=== PATIENT | male | born 1940 | race Caucasian/White ===

== ENCOUNTER 2017-07-30 11:28 | Emergency (ER) | payer MEDICARE ==
[2017-07-30] MEDS ORDERED: ONDANSETRON 4 MG/2 ML VIAL IVP STA (11:47)
[2017-07-30] MEDS ORDERED: SODIUM CHLORIDE 0.9% 1,000 ML IV STA (11:47)
[2017-07-30] MEDS ORDERED: SODIUM CHLORIDE 0.9% 2,000 ML IV STA (11:47)
[2017-07-30] MEDS ORDERED: PANTOPRAZOLE 40 MG/10 ML VIAL IVP STA (11:49)
--- NOTE | 2017-07-30 11:53 | ED ---
Abdominal Pain HPI - General Source: patient, RN notes reviewed, old records reviewed Mode of arrival: ambulatory Limitations: no limitations <Divine Lane - Last Filed: 07/30/17 13:27> <Dwayne Hughes - Last Filed: 07/30/17 14:33> - General Chief Complaint: Abdominal Pain Stated Complaint: abd pain; black stools Time Seen by Provider: 07/30/17 11:34 - History of Present Illness Initial Comments: Is a 76-year-old male presents emergency Department chief complaint of lower abdominal pain and dark black stools for the past 3 weeks. Patient reports that he size primary care provider and was placed on Protonix and Carafate. Patient reports that he's been taking those but didn't think they relating to having constipation so he stopped taking them for a few days. Patient states that he feels very fatigued. Denies any chest pain or shortness of breath. Patient states that he's had no nausea or vomiting. Patient reports that the pain seems to be lower. He also reports that his abdominal pain seems to be somewhat relieved with eating, but then will return shortly afterwards. Patient prefers he's never had any scopes. He reports that he is posterior call and schedule for GI specialist. Patient denies any recent fever, chills, shortness of breath, chest pain, nausea vomiting, numbness or tingling, dysuria or hematuria, headaches or visual changes, or any other current symptoms ( Divine Lane) - Related Data Home Medications Medication Instructions Recorded Confirmed Isosorbide Mononitrate ER [Imdur] 30 mg PO DAILY 02/24/14 07/30/17 Atenolol [Atenolol] 25 mg PO DAILY 03/08/14 07/30/17 Lisinopril [Lisinopril] 5 mg PO DAILY 03/08/14 07/30/17 Nitroglycerin Sl Tabs [Nitrostat] 0.4 mg SL Q5M PRN 03/08/14 07/30/17 Atorvastatin [Lipitor] 40 mg PO DAILY 05/28/14 07/30/17 Multivitamin/Iron/Folic Acid 1 tab PO DAILY 05/28/14 07/30/17 [Centrum Complete Multivit Tab] Pantoprazole Sodium 40 mg PO HS 03/17/15 07/30/17 Aspirin EC [Ecotrin Low Dose] 162 mg PO DAILY 07/30/17 07/30/17 Famotidine [Pepcid] 20 mg PO DAILY 07/30/17 07/30/17 Sucralfate [Carafate] 1 gm PO ACHS 07/30/17 07/30/17 Allergies Allergy/AdvReac Type Severity Reaction Status Date / Time No Known Allergies Allergy Verified 07/30/17 13:29 Review of Systems ROS Other: All systems not noted in ROS Statement are negative. <Divine Lane - Last Filed: 07/30/17 13:27> ROS Other: All systems not noted in ROS Statement are negative. <Dwayne Hughes - Last Filed: 07/30/17 14:33> ROS Statement: Those systems with pertinent positive or pertinent negative responses have been documented in the HPI. Past Medical History Past Medical History: Coronary Artery Disease (CAD), Hyperlipidemia, Hypertension History of Any Multi-Drug Resistant Organisms: None Reported Past Surgical History: Cholecystectomy, Heart Catheterization With Stent Additional Past Surgical History / Comment(s): stent x5, pilonidial cyst removed , hemmoriodectomy Past Anesthesia/Blood Transfusion Reactions: No Reported Reaction Date of Last Stent Placement:: 2012 Past Psychological History: No Psychological Hx Reported Smoking Status: Former smoker Past Alcohol Use History: None Reported Past Drug Use History: None Reported <Divine Lane - Last Filed: 07/30/17 13:27> General Exam Limitations: no limitations General appearance: alert, in no apparent distress Head exam: Present: atraumatic, normocephalic, normal inspection Eye exam: Present: normal appearance, PERRL, EOMI. Absent: scleral icterus, conjunctival injection, periorbital swelling ENT exam: Present: normal exam, mucous membranes moist Neck exam: Present: normal inspection. Absent: tenderness, meningismus, lymphadenopathy Respiratory exam: Present: normal lung sounds bilaterally. Absent: respiratory distress, wheezes, rales, rhonchi, stridor Cardiovascular Exam: Present: regular rate, normal rhythm, normal heart sounds. Absent: systolic murmur, diastolic murmur, rubs, gallop, clicks GI/Abdominal exam: Present: soft, tenderness (Some epigastric tenderness and lower quadrant tenderness.), normal bowel sounds. Absent: distended, guarding, rebound, rigid Rectal exam: Present: normal inspection, normal rectal tone, heme (+) stool, black stool. Absent: bloody stool, fecal impaction, hemorrhoids, mass, tenderness, normal prostate, prostate tenderness, prostate enlargement Extremities exam: Present: normal inspection, full ROM, normal capillary refill. Absent: tenderness, pedal edema, joint swelling, calf tenderness Back exam: Present: normal inspection Neurological exam: Present: alert, oriented X3, CN II-XII intact Psychiatric exam: Present: normal affect, normal mood Skin exam: Present: warm, dry, intact, normal color. Absent: rash <Divine Lane - Last Filed: 07/30/17 13:27> <Dwayne Hughes - Last Filed: 07/30/17 14:33> - General Exam Comments Initial Comments: 68-year-old male. No distress. (Divine Lane) Course <Divine Lane - Last Filed: 07/30/17 13:27> <Dwayne Hughes - Last Filed: 07/30/17 14:33> Vital Signs 07/30/17 07/30/17 11:31 13:16 Temperature 97.9 F 97.0 F L Pulse Rate 77 61 Respiratory 20 18 Rate Blood Pressure 157/78 159/70 O2 Sat by Pulse 99 97 Oximetry - Reevaluation(s) Reevaluation #1: 07/30/17 14:32 I did personally do a myyr-gr-terh evaluation the patient did discuss the findings with him. He has some lower abdominal discomfort to palpation no guarding rebound masses or bruits. His lab work did show evidence of pancreatitis with markedly elevated pancreatic lipase. CAT scan didn't show evidence of a mass in the head the pancreas depression 2.5 cm. This is suspicious for neoplasm. I did discuss the findings with the patient and his daughter as well as with Dr. Issa. The recommendation was for transfer to a tertiary care facility. Patient did request I did discuss the case with the transfer team and Dr. Rodriguez his accepting physician in the emergency department. Patient does request the be able to go down by private vehicle after discussion with the staff at [facility] this is found to be acceptable. Patient will retain his IV access and it will be hep-locked. CAT scan and report to. (Dwayne Hughes) Medical Decision Making - Lab Data Result diagrams: 07/30/17 11:47 07/30/17 11:47 - Radiology Data Radiology results: report reviewed <DomingoDivine - Last Filed: 07/30/17 13:27> - Lab Data Result diagrams: 07/30/17 11:47 07/30/17 11:47 <Dwayne Hughes - Last Filed: 07/30/17 14:33> - Medical Decision Making This is a pleasant 76-year-old male presents emergency Department with 3 weeks of fatigue, dark stools. He was started on omeprazole and Carafate by his primary care or 3 weeks ago. Patient ports he's had an increased lower abdominal pain. He also reports it's feeling better when he eats but then returned shortly afterwards. Patient does have some tenderness in the lower quadrants of the abdomen as well as epigastric region. Patient does have black stool, negative occult. Patient's lab work was reviewed out and did a lipase. CT abdomen and pelvis was performed and shows a 2.5 cm mass within the pancreatic head. I discussed all these findings with the patient and Dr. Hughes. Patient will be admitted for pancreatitis and further evaluation due to the pancreatic mass and dark stools. (Divine Lane) - Lab Data Lab Results 07/30/17 07/30/17 07/30/17 Range/Units 10:30 11:47 11:47 WBC (3.8-10.6) k/uL RBC (4.30-5.90) m/uL Hgb (13.0-17.5) gm/dL Hct (39.0-53.0) % MCV (80.0-100.0) fL MCH (25.0-35.0) pg MCHC (31.0-37.0) g/dL RDW (11.5-15.5) % Plt Count (150-450) k/uL Neutrophils % % Lymphocytes % % Monocytes % % Eosinophils % % Basophils % % Neutrophils # (1.3-7.7) k/uL Lymphocytes # (1.0-4.8) k/uL Monocytes # (0-1.0) k/uL Eosinophils # (0-0.7) k/uL Basophils # (0-0.2) k/uL PT (9.0-12.0) sec INR (<1.2) APTT (22.0-30.0) sec Sodium 143 (137-145) mmol/L Potassium 4.3 (3.5-5.1) mmol/L Chloride 107 (98-107) mmol/L Carbon Dioxide 24 (22-30) mmol/L Anion Gap 12 mmol/L BUN 14 (9-20) mg/dL Creatinine 0.82 (0.66-1.25) mg/dL Est GFR (MDRD) Af Amer >60 (>60 ml/min/1.73 sqM) Est GFR (MDRD) Non-Af >60 (>60 ml/min/1.73 sqM) Glucose 164 H (74-99) mg/dL Calcium 9.4 (8.4-10.2) mg/dL Total Bilirubin 0.5 (0.2-1.3) mg/dL AST 24 (17-59) U/L ALT 39 (21-72) U/L Alkaline Phosphatase 118 (38-126) U/L Troponin I <0.012 (0.000-0.034) ng/mL Total Protein 6.5 (6.3-8.2) g/dL Albumin 3.8 (3.5-5.0) g/dL Amylase 215 H (30-110) U/L Lipase 2438 H (23-300) U/L Urine Color Urine Appearance (Clear) Urine pH (5.0-8.0) Ur Specific [place] (1.001-1.035) Urine Protein (Negative) Urine Glucose (UA) (Negative) Urine Ketones (Negative) Urine Blood (Negative) Urine Nitrite (Negative) Urine Bilirubin (Negative) Urine Urobilinogen (<2.0) mg/dL Ur Leukocyte Esterase (Negative) Stool Occult Blood Negative (Negative) 07/30/17 07/30/17 07/30/17 Range/Units 11:47 11:47 12:47 WBC 8.8 (3.8-10.6) k/uL RBC 5.14 (4.30-5.90) m/uL Hgb 16.5 (13.0-17.5) gm/dL Hct 48.8 (39.0-53.0) % MCV 94.8 (80.0-100.0) fL MCH 32.1 (25.0-35.0) pg MCHC 33.8 (31.0-37.0) g/dL RDW 13.0 (11.5-15.5) % Plt Count 225 (150-450) k/uL Neutrophils % 60 % Lymphocytes % 19 % Monocytes % 6 % Eosinophils % 10 % Basophils % 1 % Neutrophils # 5.3 (1.3-7.7) k/uL Lymphocytes # 1.7 (1.0-4.8) k/uL Monocytes # 0.5 (0-1.0) k/uL Eosinophils # 0.9 H (0-0.7) k/uL Basophils # 0.0 (0-0.2) k/uL PT 11.4 (9.0-12.0) sec INR 1.1 (<1.2) APTT 25.4 (22.0-30.0) sec Sodium (137-145) mmol/L Potassium (3.5-5.1) mmol/L Chloride (98-107) mmol/L Carbon Dioxide (22-30) mmol/L Anion Gap mmol/L BUN (9-20) mg/dL Creatinine (0.66-1.25) mg/dL Est GFR (MDRD) Af Amer (>60 ml/min/1.73 sqM) Est GFR (MDRD) Non-Af (>60 ml/min/1.73 sqM) Glucose (74-99) mg/dL Calcium (8.4-10.2) mg/dL Total Bilirubin (0.2-1.3) mg/dL AST (17-59) U/L ALT (21-72) U/L Alkaline Phosphatase (38-126) U/L Troponin I (0.000-0.034) ng/mL Total Protein (6.3-8.2) g/dL Albumin (3.5-5.0) g/dL Amylase (30-110) U/L Lipase (23-300) U/L Urine Color Yellow Urine Appearance Clear (Clear) Urine pH 5.5 (5.0-8.0) Ur Specific [place] 1.050 H (1.001-1.035) Urine Protein Trace H (Negative) Urine Glucose (UA) Negative (Negative) Urine Ketones Negative (Negative) Urine Blood Negative (Negative) Urine Nitrite Negative (Negative) Urine Bilirubin Negative (Negative) Urine Urobilinogen <2.0 (<2.0) mg/dL Ur Leukocyte Esterase Negative (Negative) Stool Occult Blood (Negative) 07/30/17 13:08 EKG shows a sinus rhythm. Ventricular rate of 60 bpm. NC interval 184 ms. QRS duration 102 Dedra's seconds. QT QTc is 448 ms. (Divine Lane) - Radiology Data CT abdomen and pelvis was performed and shows 2.5 cm low attenuating mass in the head of the pancreas suspicious for neoplasm. A small hiatal hernia noted. Mild organomegaly. Right-sided nonobstructing nephrolithiasis. Multiple small. Renal cyst. Diffuse mucosal thickening involving the sigmoid colon. Degenerative changes within the spine. (Divine Lane) Disposition Time of Disposition: 13:08 <[address] - Last Filed: 07/30/17 13:27> <Dwayne Hughes - Last Filed: 07/30/17 14:33> Clinical Impression: Pancreatic mass, Pancreatitis, Fatigue Disposition: ADMITTED IP TO THIS [facility] Condition: Stable Referrals: Leodan Tadeo MD [Primary Care Provider] - 1-2 days Addendum entered and electronically signed by Divine Lane PA-C 07/30/17 14 :26: After Dr. Hughes discussed with Dr. Villa her doctor daughter prefers that the patient be sent to a tertiary care center to have a possible Whipple procedure to have the pancreatic mass removed. This was discussed with the patient. Patient and his daughter agree that they would like to be transferred to [facility]. He will be driving down in private vehicle. The accepting physician is Dr. Harris. Patient was informed of all these results and will not be admitted at this time, and rather transferred onto [facility].
[2017-07-30] MEDS ORDERED: RX INFO: IV CONTRAST WAS GIVEN 1 EACH MISC MISCELLANE PRN (11:55)
[2017-07-30 12:06] LABS: INR 1.1 (<1.2); Partial Thromboplastin Time 25.4 sec (22.0-30.0); Prothrombin Time 11.4 sec (9.0-12.0)
[2017-07-30 12:07] LABS: ALT 39 U/L (21-72); AST 24 U/L (17-59); Alkaline Phosphatase 118 U/L (38-126); Amylase 215 U/L (30-110); Anion Gap 12 mmol/L; Blood Urea Nitrogen 14 mg/dL (9-20); Calcium 9.4 mg/dL (8.4-10.2); Carbon Dioxide 24 mmol/L (22-30); Chloride 107 mmol/L (98-107); Glucose 164 mg/dL (74-99); Non-African American GFR(MDRD) >60 (>60 ml/min/1.73 sqM); Potassium 4.3 mmol/L (3.5-5.1); Sodium 143 mmol/L (137-145); Total Bilirubin 0.5 mg/dL (0.2-1.3); Total Protein 6.5 g/dL (6.3-8.2)
[2017-07-30 12:38] LABS: Basophils % (A) 1 %; CH 30.9; CHCM 32.7; Eosinophils # (A) 0.9 k/uL (0-0.7); Eosinophils % (A) 10 %; HCT 48.8 % (39.0-53.0); HDW 2.43; HGB 16.5 gm/dL (13.0-17.5); Luc # (Auto) 0.33; Luc % (Auto) 4; Lymphocytes # (A) 1.7 k/uL (1.0-4.8); Lymphocytes % (A) 19 %; MCH 32.1 pg (25.0-35.0); MCHC 33.8 g/dL (31.0-37.0); MCV 94.8 fL (80.0-100.0); Mean Platelet Volume 6.7; Monocytes # (A) 0.5 k/uL (0-1.0); Monocytes % (A) 6 %; Neutrophils # (A) 5.3 k/uL (1.3-7.7); Neutrophils % (A) 60 %; RBC 5.14 m/uL (4.30-5.90); WBC 8.8 k/uL (3.8-10.6); WBC (Perox) 8.42
[2017-07-30 12:55] LABS: Appearance,Urine Clear (Clear); Bilirubin,Urine Negative (Negative); Glucose,Urine (UA) Negative (Negative); Ketones,Urine Negative (Negative); Leukocyte Esterase,Urine Negative (Negative); Nitrite,Urine Negative (Negative); PH, Urine 5.5 (5.0-8.0); Protein,Urine Trace (Negative); UA Billing (MACRO vs. MICRO) CHEM; Urobilinogen,Urine <2.0 mg/dL (<2.0)
--- NOTE | 2017-07-30 13:01 | CT ---
EXAMINATION TYPE: CT abdomen pelvis w con DATE OF EXAM: 07/30/2017 REFERENCE: Report but no images of the previous study dated 08/10/2006. HISTORY: Pain HISTORY: Abd pain with black stools REFERENCE: NONE CT DLP: 1141.7 mGy Automated exposure control for dose reduction was used. TECHNIQUE: Helical acquisition through the abdomen and pelvis was obtained following the oral ingesti on of without Oral Contrast and following intravenous administration of 100 mL of Omnipaque 300. The data was reformatted in axial, coronal and sagittal projections. FINDINGS: There is dependent atelectasis within the dependent portions of the lungs. There is no pleu ral or pericardial fluid. The heart is mildly enlarged. There is coronary artery as well as other vas cular calcifications. There is a small hiatal hernia. Within the abdomen, the gallbladder is been removed. Liver and spleen are normal. Both adrenal glands are normal. There are 2 nonobstructing calculi in the right kidney. The largest measures 8.7 mm. There are multip le, simple appearing cyst present in both kidneys. The largest measures 1.9 cm in the upper pole of t he right kidney. There is a 2.1 x 2.5 x 2.5 cm low attenuating mass in the head of the pancreas. The pancreatic duct p roximal to this measures 4.3 mm. There is no significant retroperitoneal, iliac or inguinal adenopathy. The prostate gland is enlarged. The bladder is unremarkable. There is some mucosal thickening involving the sigmoid colon. The appendix is not visualized with cer tainty. Small bowel caliber is normal. There is no free fluid and no free air identified. There is degenerative disc disease, facet arthropathy and hypertrophic spondylosis within the spine. No bony destructive lesion is seen. IMPRESSION: 1. 2.5 CM LOW ATTENUATING MASS IN THE HEAD OF THE PANCREAS SUSPICIOUS FOR NEOPLASM. 2. SMALL HIATAL HERNIA. 3. MILD CARDIOMEGALY. 4. RIGHT-SIDED NONOBSTRUCTING NEPHROLITHIASIS. 5. MULTIPLE, SIMPLE APPEARING RENAL CYSTS. 6. DIFFUSE MUCOSAL THICKENING INVOLVING THE SIGMOID COLON. 7. DEGENERATIVE CHANGES WITHIN THE SPINE.
[2017-07-30] MEDS ORDERED: HYDROmorphone 1 MG/ML 1 ML SYRINGE IVP STA (13:05)
[2017-07-30 13:17] VITALS: RESP 18
[2017-07-30] MEDS ORDERED: ONDANSETRON 4 MG/2 ML VIAL IVP PRN (13:30)
[2017-07-30] MEDS ORDERED: ACETAMINOPHEN TAB 325 MG TAB PO PRN (13:30)
[2017-07-30] MEDS ORDERED: KETOROLAC 30 MG/ML 1 ML VIAL IVP PRN (13:30)
[2017-07-30] MEDS ORDERED: IBUPROFEN 400 MG TAB PO PRN (13:30)
[2017-07-30] MEDS ORDERED: SODIUM CHLORIDE 0.9% 1,000 ML IV SCH (13:30)
[2017-07-30] MEDS ORDERED: NALOXONE 0.4 MG/ML 1 ML VIAL IV PRN (13:30)
[2017-07-30] MEDS ORDERED: HYDROmorphone 1 MG/ML 1 ML SYRINGE IVP PRN (13:30)
--- NOTE | 2017-07-30 14:55 | ED ---
Medical Decision Making - Lab Data Result diagrams: 07/30/17 11:47 07/30/17 11:47 Lab Results 07/30/17 07/30/17 07/30/17 Range/Units 10:30 11:47 11:47 WBC (3.8-10.6) k/uL RBC (4.30-5.90) m/uL Hgb (13.0-17.5) gm/dL Hct (39.0-53.0) % MCV (80.0-100.0) fL MCH (25.0-35.0) pg MCHC (31.0-37.0) g/dL RDW (11.5-15.5) % Plt Count (150-450) k/uL Neutrophils % % Lymphocytes % % Monocytes % % Eosinophils % % Basophils % % Neutrophils # (1.3-7.7) k/uL Lymphocytes # (1.0-4.8) k/uL Monocytes # (0-1.0) k/uL Eosinophils # (0-0.7) k/uL Basophils # (0-0.2) k/uL PT (9.0-12.0) sec INR (<1.2) APTT (22.0-30.0) sec Sodium 143 (137-145) mmol/L Potassium 4.3 (3.5-5.1) mmol/L Chloride 107 (98-107) mmol/L Carbon Dioxide 24 (22-30) mmol/L Anion Gap 12 mmol/L BUN 14 (9-20) mg/dL Creatinine 0.82 (0.66-1.25) mg/dL Est GFR (MDRD) Af Amer >60 (>60 ml/min/1.73 sqM) Est GFR (MDRD) Non-Af >60 (>60 ml/min/1.73 sqM) Glucose 164 H (74-99) mg/dL Calcium 9.4 (8.4-10.2) mg/dL Total Bilirubin 0.5 (0.2-1.3) mg/dL AST 24 (17-59) U/L ALT 39 (21-72) U/L Alkaline Phosphatase 118 (38-126) U/L Troponin I <0.012 (0.000-0.034) ng/mL Total Protein 6.5 (6.3-8.2) g/dL Albumin 3.8 (3.5-5.0) g/dL Amylase 215 H (30-110) U/L Lipase 2438 H (23-300) U/L Urine Color Urine Appearance (Clear) Urine pH (5.0-8.0) Ur Specific [place] (1.001-1.035) Urine Protein (Negative) Urine Glucose (UA) (Negative) Urine Ketones (Negative) Urine Blood (Negative) Urine Nitrite (Negative) Urine Bilirubin (Negative) Urine Urobilinogen (<2.0) mg/dL Ur Leukocyte Esterase (Negative) Stool Occult Blood Negative (Negative) 07/30/17 07/30/17 07/30/17 Range/Units 11:47 11:47 12:47 WBC 8.8 (3.8-10.6) k/uL RBC 5.14 (4.30-5.90) m/uL Hgb 16.5 (13.0-17.5) gm/dL Hct 48.8 (39.0-53.0) % MCV 94.8 (80.0-100.0) fL MCH 32.1 (25.0-35.0) pg MCHC 33.8 (31.0-37.0) g/dL RDW 13.0 (11.5-15.5) % Plt Count 225 (150-450) k/uL Neutrophils % 60 % Lymphocytes % 19 % Monocytes % 6 % Eosinophils % 10 % Basophils % 1 % Neutrophils # 5.3 (1.3-7.7) k/uL Lymphocytes # 1.7 (1.0-4.8) k/uL Monocytes # 0.5 (0-1.0) k/uL Eosinophils # 0.9 H (0-0.7) k/uL Basophils # 0.0 (0-0.2) k/uL PT 11.4 (9.0-12.0) sec INR 1.1 (<1.2) APTT 25.4 (22.0-30.0) sec Sodium (137-145) mmol/L Potassium (3.5-5.1) mmol/L Chloride (98-107) mmol/L Carbon Dioxide (22-30) mmol/L Anion Gap mmol/L BUN (9-20) mg/dL Creatinine (0.66-1.25) mg/dL Est GFR (MDRD) Af Amer (>60 ml/min/1.73 sqM) Est GFR (MDRD) Non-Af (>60 ml/min/1.73 sqM) Glucose (74-99) mg/dL Calcium (8.4-10.2) mg/dL Total Bilirubin (0.2-1.3) mg/dL AST (17-59) U/L ALT (21-72) U/L Alkaline Phosphatase (38-126) U/L Troponin I (0.000-0.034) ng/mL Total Protein (6.3-8.2) g/dL Albumin (3.5-5.0) g/dL Amylase (30-110) U/L Lipase (23-300) U/L Urine Color Yellow Urine Appearance Clear (Clear) Urine pH 5.5 (5.0-8.0) Ur Specific [place] 1.050 H (1.001-1.035) Urine Protein Trace H (Negative) Urine Glucose (UA) Negative (Negative) Urine Ketones Negative (Negative) Urine Blood Negative (Negative) Urine Nitrite Negative (Negative) Urine Bilirubin Negative (Negative) Urine Urobilinogen <2.0 (<2.0) mg/dL Ur Leukocyte Esterase Negative (Negative) Stool Occult Blood (Negative) Disposition Clinical Impression: Pancreatic mass, Pancreatitis, Fatigue Disposition: DC/TRNS INTERMEDIATE CARE FAC Condition: Stable Additional Instructions: Go directly to [facility]. Leave IV in place. Referrals: Leodan Tadeo MD [Primary Care Provider] - 1-2 days Time of Disposition: 14:54 - Out of Hospital Transfer - Req. Specs Out of Hospital Transfer - Requested Specifics: Other Emergency Center ([facility])
[2017-07-30 15:04] VITALS: BP 148/74; PULSE 66; TEMP 97.6
[2017-07-31] MEDS ORDERED: PANTOPRAZOLE 40 MG/10 ML VIAL IV SCH (09:00)
== END 2017-07-30 15:14 ==
LOC: EC 11:28
DX: K85.90 Acute pancreatitis without necrosis or infection, unspecified (principal); R53.83 Other fatigue; I25.10 Atherosclerotic heart disease of native coronary artery without angina pectoris; E78.5 Hyperlipidemia, unspecified; I10 Essential (primary) hypertension; Z95.5 Presence of coronary angioplasty implant and graft; Z90.49 Acquired absence of other specified parts of digestive tract; Z87.891 Personal history of nicotine dependence; Z79.82 Long term (current) use of aspirin; Z79.899 Other long term (current) drug therapy
CPT/HCPCS: 99285 ×2; 96374 ×2; 96375 ×3; 96361 ×4; 36415; 93005; 80053; 82150; 83690; 84484; 85025; 85610; 85730; 82272; 81003; 86301; 74177; J2405; J1170; Q9967; C9113

== ENCOUNTER 2017-09-08 18:16 | Emergency (ER) | payer MEDICARE ==
[2017-09-08] MEDS ORDERED: ONDANSETRON 4 MG/2 ML VIAL IVP STA ×2 (18:34→20:37)
[2017-09-08] MEDS ORDERED: SODIUM CHLORIDE 0.9% 1,000 ML IV STA ×2 (18:34→20:15)
[2017-09-08] MEDS ORDERED: FAMOTIDINE 20 MG/2 ML VIAL IV STA (18:35)
--- NOTE | 2017-09-08 18:45 | ED ---
General Adult HPI <Dwayne Hughes - Last Filed: 09/08/17 21:04> - General Source: patient, RN notes reviewed Mode of arrival: ambulatory Limitations: no limitations <Adriana Garg - Last Filed: 09/08/17 21:05> - General Chief complaint: Nausea/Vomiting/Diarrhea Stated complaint: vomiting blood, Ca patient Time Seen by Provider: 09/08/17 18:25 - History of Present Illness Initial comments: 77 yo male presents to the ER with cc of vomiting. Patient was recently diagnosed with pancreatic cancer. Patient underwent a procedure of the abdomen and did have a laceration to the colon. The procedure. This was about a week and a half ago. They state that he was doing well he was feeling well and now he just has episodes where he vomits. He states that he feels nauseous when his stomach is empty. He states however when he drinks he about 30 minutes later does have vomiting. He's been taking Zofran with no improvement to his symptoms. Family states that he's lost about 25 pounds since July. They were concerned due to the vomiting so without that they should be evaluated. Patient denies any recent fever, chills, shortness of breath, chest pain, back pain, abdominal pain, numbness or tingling, dysuria or hematuria, constipation or diarrhea, headaches or visual changes, or any other current symptoms. (Adriana Garg) - Related Data Home Medications Medication Instructions Recorded Confirmed Isosorbide Mononitrate ER [Imdur] 30 mg PO HS 02/24/14 09/08/17 Atenolol [Atenolol] 25 mg PO HS 03/08/14 09/08/17 Lisinopril [Lisinopril] 5 mg PO HS 03/08/14 09/08/17 Nitroglycerin Sl Tabs [Nitrostat] 0.4 mg SL Q5M PRN 03/08/14 09/08/17 Multivitamin/Iron/Folic Acid 1 tab PO HS 05/28/14 09/08/17 [Centrum Complete Multivit Tab] Pantoprazole Sodium 40 mg PO HS 03/17/15 09/08/17 Atorvastatin Calcium [Lipitor] 40 mg PO HS 09/08/17 09/08/17 Famotidine [Pepcid] 20 mg PO HS 09/08/17 09/08/17 Hydrocodone/Acetaminophen [[place] 1 - 2 tab PO Q4HR PRN 09/08/17 09/08/17 5-325] Ondansetron HCl [Zofran] 8 mg PO DAILY PRN 09/08/17 09/08/17 Sucralfate [Carafate] 1 gm PO HS 09/08/17 09/08/17 Allergies Allergy/AdvReac Type Severity Reaction Status Date / Time No Known Allergies Allergy Verified 09/08/17 18:41 Review of Systems ROS Other: All systems not noted in ROS Statement are negative. <Dwayne Hughes - Last Filed: 09/08/17 21:04> ROS Other: All systems not noted in ROS Statement are negative. <Adriana Garg - Last Filed: 09/08/17 21:05> ROS Statement: Those systems with pertinent positive or pertinent negative responses have been documented in the HPI. Past Medical History Past Medical History: Coronary Artery Disease (CAD), Hyperlipidemia, Hypertension Additional Past Medical History / Comment(s): pancreatic CA History of Any Multi-Drug Resistant Organisms: None Reported Past Surgical History: Cholecystectomy, Heart Catheterization With Stent Additional Past Surgical History / Comment(s): stent x5, pilonidial cyst removed , hemmoriodectomy Past Anesthesia/Blood Transfusion Reactions: No Reported Reaction Date of Last Stent Placement:: 2012 Past Psychological History: No Psychological Hx Reported Past Alcohol Use History: None Reported <Adriana Garg - Last Filed: 09/08/17 21:05> General Exam <Dwayne Hughes - Last Filed: 09/08/17 21:04> Limitations: no limitations <Adriana Garg - Last Filed: 09/08/17 21:05> - General Exam Comments Initial Comments: General: The patient is awake and alert, in no distress, and does not appear acutely ill. Eye: Pupils are equal, round and reactive to light, extra-ocular movements are intact; there is normal conjunctiva bilaterally. No signs of icterus. Ears, nose, mouth and throat: There are moist mucous membranes and no oral lesions. Neck: The neck is supple, there is no tenderness. Cardiovascular: There is a regular rate and rhythm. No murmur, rub or gallop is appreciated. Respiratory: Lungs are clear to auscultation, respirations are non-labored, breath sounds are equal. No wheezes, stridor, rales, or rhonchi. Gastrointestinal: Soft, non-distended, non-tender abdomen without masses or organomegaly noted. There is no rebound or guarding present. No CVA tenderness. Bowel sounds are unremarkable. Back: There is no tenderness to palpation in the midline. There is no obvious deformity. No rashes noted. Musculoskeletal: Normal ROM, no tenderness, There is no pedal edema. There is no calf tenderness or swelling. Sensation intact. Pulses equal bilaterally 2+. Neurological: CN II-XII intact, There are no obvious motor or sensory deficits. Coordination appears grossly intact. Speech is normal. Skin: Skin is warm and dry and no rashes or lesions are noted. Psychiatric: Cooperative, appropriate mood & affect, normal judgment. (Adriana Garg) Course <Dwayne Hughes - Last Filed: 09/08/17 21:04> <Adriana Garg - Last Filed: 09/08/17 21:05> Vital Signs 09/08/17 09/08/17 18:18 20:57 Temperature 97 F L Pulse Rate 105 H 90 Respiratory 18 16 Rate Blood Pressure 126/58 153/76 O2 Sat by Pulse 94 L 98 Oximetry - Reevaluation(s) Reevaluation #1: 09/08/17 21:04 I did proceed a [id number] evaluation the patient did discuss findings with him and his family. He does not want to be admitted to the hospital tonight. Patient will be discharged with close follow-up with his physician. (Dwayne Hughes) Medical Decision Making - Lab Data Result diagrams: 09/08/17 19:41 09/08/17 19:41 <Dwayne Hughes - Last Filed: 09/08/17 21:04> - Lab Data Result diagrams: 09/08/17 19:41 09/08/17 19:41 - Radiology Data Radiology results: report reviewed, image reviewed <Adriana Garg - Last Filed: 09/08/17 21:05> - Medical Decision Making 77-year-old male presents for nausea vomiting. At this time patient's lab work has been reviewed. At this time the patient has not had any nausea vomiting here. This time the story is less suspicious for blood and more consistent with food. At this time patient's laboratory is reviewed. Additional elevated lipase but it is improved from previous level. At this time we did discuss admission for hydration. He states that he does not want to stay here like to go home. This time we discussed using his nausea meds at home we did give him adequate hydration. He'll be discharged follow-up with his doctor. We discussed return parameters. We did discuss elevated glucose and close follow- up for this. He is in agreement this plan. His family are in agreement this plan. All questions have been answered. They will be discharged. (Adriana Garg) - Lab Data Lab Results 09/08/17 09/08/17 09/08/17 Range/Units 19:41 19:41 19:41 WBC 10.1 (3.8-10.6) k/uL RBC 5.40 (4.30-5.90) m/uL Hgb 15.8 (13.0-17.5) gm/dL Hct 49.2 (39.0-53.0) % MCV 91.2 (80.0-100.0) fL MCH 29.2 (25.0-35.0) pg MCHC 32.1 (31.0-37.0) g/dL RDW 13.9 (11.5-15.5) % Plt Count 200 (150-450) k/uL Neutrophils % 81 % Lymphocytes % 10 % Monocytes % 6 % Eosinophils % 2 % Basophils % 0 % Neutrophils # 8.2 H (1.3-7.7) k/uL Lymphocytes # 1.0 (1.0-4.8) k/uL Monocytes # 0.6 (0-1.0) k/uL Eosinophils # 0.2 (0-0.7) k/uL Basophils # 0.0 (0-0.2) k/uL Sodium 136 L (137-145) mmol/L Potassium 4.2 (3.5-5.1) mmol/L Chloride 92 L (98-107) mmol/L Carbon Dioxide 29 (22-30) mmol/L Anion Gap 15 mmol/L BUN 36 H (9-20) mg/dL Creatinine 1.00 (0.66-1.25) mg/dL Est GFR (MDRD) Af Amer >60 (>60 ml/min/1.73 sqM) Est GFR (MDRD) Non-Af >60 (>60 ml/min/1.73 sqM) Glucose 345 H (74-99) mg/dL Plasma Lactic Acid Moisés 1.6 (0.7-2.0) mmol/L Calcium 9.8 (8.4-10.2) mg/dL Phosphorus 3.4 (2.5-4.5) mg/dL Magnesium 1.8 (1.6-2.3) mg/dL Total Bilirubin 1.0 (0.2-1.3) mg/dL AST 24 (17-59) U/L ALT 35 (21-72) U/L Alkaline Phosphatase 153 H (38-126) U/L Total Protein 6.4 (6.3-8.2) g/dL Albumin 3.8 (3.5-5.0) g/dL Amylase 106 (30-110) U/L Lipase 1183 H (23-300) U/L Urine Color Urine Appearance (Clear) Urine pH (5.0-8.0) Ur Specific [place] (1.001-1.035) Urine Protein (Negative) Urine Glucose (UA) (Negative) Urine Ketones (Negative) Urine Blood (Negative) Urine Nitrite (Negative) Urine Bilirubin (Negative) Urine Urobilinogen (<2.0) mg/dL Ur Leukocyte Esterase (Negative) Urine RBC (0-5) /hpf Urine WBC (0-5) /hpf Ur Squamous Epith Cells (0-4) /hpf Cellular Casts (0) /lpf Hyaline Casts (0-2) /lpf Granular Casts (0) /lpf Urine Mucus (None) /hpf 09/08/17 Range/Units 19:41 WBC (3.8-10.6) k/uL RBC (4.30-5.90) m/uL Hgb (13.0-17.5) gm/dL Hct (39.0-53.0) % MCV (80.0-100.0) fL MCH (25.0-35.0) pg MCHC (31.0-37.0) g/dL RDW (11.5-15.5) % Plt Count (150-450) k/uL Neutrophils % % Lymphocytes % % Monocytes % % Eosinophils % % Basophils % % Neutrophils # (1.3-7.7) k/uL Lymphocytes # (1.0-4.8) k/uL Monocytes # (0-1.0) k/uL Eosinophils # (0-0.7) k/uL Basophils # (0-0.2) k/uL Sodium (137-145) mmol/L Potassium (3.5-5.1) mmol/L Chloride (98-107) mmol/L Carbon Dioxide (22-30) mmol/L Anion Gap mmol/L BUN (9-20) mg/dL Creatinine (0.66-1.25) mg/dL Est GFR (MDRD) Af Amer (>60 ml/min/1.73 sqM) Est GFR (MDRD) Non-Af (>60 ml/min/1.73 sqM) Glucose (74-99) mg/dL Plasma Lactic Acid Moisés (0.7-2.0) mmol/L Calcium (8.4-10.2) mg/dL Phosphorus (2.5-4.5) mg/dL Magnesium (1.6-2.3) mg/dL Total Bilirubin (0.2-1.3) mg/dL AST (17-59) U/L ALT (21-72) U/L Alkaline Phosphatase (38-126) U/L Total Protein (6.3-8.2) g/dL Albumin (3.5-5.0) g/dL Amylase (30-110) U/L Lipase (23-300) U/L Urine Color Yellow Urine Appearance Cloudy (Clear) Urine pH 5.5 (5.0-8.0) Ur Specific [place] 1.025 (1.001-1.035) Urine Protein 2+ H (Negative) Urine Glucose (UA) 4+ H (Negative) Urine Ketones 2+ H (Negative) Urine Blood Trace H (Negative) Urine Nitrite Negative (Negative) Urine Bilirubin 1+ H (Negative) Urine Urobilinogen 2.0 (<2.0) mg/dL Ur Leukocyte Esterase Negative (Negative) Urine RBC 3 (0-5) /hpf Urine WBC 8 H (0-5) /hpf Ur Squamous Epith Cells 1 (0-4) /hpf Cellular Casts 16 (0) /lpf Hyaline Casts 17 H (0-2) /lpf Granular Casts 20 (0) /lpf Urine Mucus Moderate H (None) /hpf Disposition <Dwayne Hughes - Last Filed: 09/08/17 21:04> Time of Disposition: 21:05 <Adriana Garg - Last Filed: 09/08/17 21:05> Clinical Impression: Dehydration, Nausea & vomiting, Hyperglycemia Disposition: HOME SELF-CARE Condition: Stable Instructions: Acute Nausea and Vomiting (ED) Additional Instructions: Please use medication as discussed. Please follow up with family doctor if symptoms have not improved over the next two days. Please return to the emergency room if your symptoms increase or worsen or for any other concerns. Referrals: Leodan Tadeo MD [Primary Care Provider] - 1-2 days
[2017-09-08 20:05] LABS: Basophils % (A) 0 %; CH 30.1; CHCM 33.1; Eosinophils # (A) 0.2 k/uL (0-0.7); Eosinophils % (A) 2 %; HCT 49.2 % (39.0-53.0); HDW 2.35; HGB 15.8 gm/dL (13.0-17.5); Luc # (Auto) 0.15; Luc % (Auto) 2; Lymphocytes % (A) 10 %; MCH 29.2 pg (25.0-35.0); MCHC 32.1 g/dL (31.0-37.0); MCV 91.2 fL (80.0-100.0); Monocytes # (A) 0.6 k/uL (0-1.0); Monocytes % (A) 6 %; Neutrophils # (A) 8.2 k/uL (1.3-7.7); Neutrophils % (A) 81 %; RDW 13.9 % (11.5-15.5); WBC 10.1 k/uL (3.8-10.6); WBC (Perox) 10.09
[2017-09-08 20:11] LABS: Appearance,Urine Cloudy (Clear); Bilirubin,Urine 1+ (Negative); Glucose,Urine (UA) 4+ (Negative); Granular Casts,Urine 20 /lpf (0); Leukocyte Esterase,Urine Negative (Negative); Mucus,Urine Moderate /hpf; Nitrite,Urine Negative (Negative); PH, Urine 5.5 (5.0-8.0); Particle Count 9220; Protein,Urine 2+ (Negative); RBC,Urine 3 /hpf (0-5); Specific Gravity,Urine 1.025 (1.001-1.035); Squamous Epithelial Cell,Urine 1 /hpf (0-4); UA Billing (MACRO vs. MICRO) MICRO; WBC,Urine 8 /hpf (0-5)
[2017-09-08 20:13] LABS: Ketones,Urine 2+ (Negative)
--- NOTE | 2017-09-08 20:14 | XR ---
EXAMINATION TYPE: XR abdomen 2V , 3 VIEWS DATE OF EXAM ORDERED: 09/08/2017 HISTORY: Pain. COMPARISON: None. FINDINGS: There has been a previous cholecystectomy. There is a 7.4 mm calcification overlying the mid polar region of the right kidney. There are vascula r calcifications as well as phleboliths within the pelvis. The abdominal gas pattern is within normal limits. There is no evidence of obstruction or free air. The lung bases are clear. There are degenerative changes in the spine. IMPRESSION: 1. PROBABLE RIGHT RENAL CALCULUS. 2. NO EVIDENCE OF OBSTRUCTION OR FREE AIR.
[2017-09-08 20:17] LABS: ALT 35 U/L (21-72); AST 24 U/L (17-59); Alkaline Phosphatase 153 U/L (38-126); Amylase 106 U/L (30-110); Anion Gap 15 mmol/L; Blood Urea Nitrogen 36 mg/dL (9-20); Calcium 9.8 mg/dL (8.4-10.2); Carbon Dioxide 29 mmol/L (22-30); Chloride 92 mmol/L (98-107); Glucose 345 mg/dL (74-99); Magnesium 1.8 mg/dL (1.6-2.3); Non-African American GFR(MDRD) >60 (>60 ml/min/1.73 sqM); Phosphorus 3.4 mg/dL (2.5-4.5); Potassium 4.2 mmol/L (3.5-5.1); Sodium 136 mmol/L (137-145); Total Protein 6.4 g/dL (6.3-8.2)
[2017-09-08 22:00] VITALS: BP 156/68; PULSE 88; RESP 17; TEMP 97.8
== END 2017-09-08 22:09 | disposition home or self-care (01) ==
LOC: EC 18:16
DX: R73.9 Hyperglycemia, unspecified (principal); R11.2 Nausea with vomiting, unspecified; E86.0 Dehydration; I25.10 Atherosclerotic heart disease of native coronary artery without angina pectoris; E78.5 Hyperlipidemia, unspecified; I10 Essential (primary) hypertension; Z95.5 Presence of coronary angioplasty implant and graft; Z85.07 Personal history of malignant neoplasm of pancreas; Z90.49 Acquired absence of other specified parts of digestive tract; Z79.899 Other long term (current) drug therapy; Z53.20 Procedure and treatment not carried out because of patient's decision for unspecified reasons
CPT/HCPCS: 36415; 80053; 82150; 83605; 83690; 83735; 84100; 85025; 81001; 87040; 87086; 74020; 99284; 96374; 96375; 96361 ×2; J2405

== ENCOUNTER 2017-09-10 10:43 | Inpatient (IN) | payer MEDICARE ==
[2017-09-10] MEDS ORDERED: ONDANSETRON 4 MG/2 ML VIAL IVP STA (11:01)
[2017-09-10] MEDS ORDERED: SODIUM CHLORIDE 0.9% 2,000 ML IV STA (11:01)
[2017-09-10] MEDS ORDERED: PANTOPRAZOLE 40 MG/10 ML VIAL IVP STA (11:02)
[2017-09-10] MEDS ORDERED: HYDROmorphone 0.5 MG/0.5 ML SYRINGE IVP STA (11:51)
--- NOTE | 2017-09-10 11:57 | ED ---
Nausea/Vomiting/Diarrhea HPI - General Chief complaint: Nausea/Vomiting/Diarrhea Stated complaint: Vomiting/Weakness Time Seen by Provider: 09/10/17 10:54 Source: patient, RN notes reviewed Mode of arrival: ambulatory Limitations: no limitations - History of Present Illness Initial comments: This a 77-year-old male presents emergency Department with chief complaint of nausea vomiting. Patient had recent diagnosis of pancreatic cancer. Patient states he is here on and was hydrated states he felt well and went home. He states he had no issues yesterday but started again today with vomiting. Patient states that he is scheduled to start chemotherapy on Tuesday and states he currently sees Dr. grullon for oncology. Patient states he does have a port which was placed over [address] bojorquez and has been accessed. Patient denies fever, chills. Patient states he has a burning sensation in his epigastric region that radiates into his chest. Denies shortness breath, headache or dizziness. Patient states he just feels weak and run down. Since he has known elevated pancreatic enzymes. Patient denies any melena, hematochezia, hematemesis or coffee-ground emesis. Denies any constipation or diarrhea - Related Data Home Medications Medication Instructions Recorded Confirmed Isosorbide Mononitrate ER [Imdur] 30 mg PO HS 02/24/14 09/10/17 Atenolol [Atenolol] 25 mg PO HS 03/08/14 09/10/17 Lisinopril [Lisinopril] 5 mg PO HS 03/08/14 09/10/17 Nitroglycerin Sl Tabs [Nitrostat] 0.4 mg SL Q5M PRN 03/08/14 09/10/17 Multivitamin/Iron/Folic Acid 1 tab PO DAILY 05/28/14 09/10/17 [Centrum Complete Multivit Tab] Pantoprazole Sodium 40 mg PO HS 03/17/15 09/10/17 Atorvastatin Calcium [Lipitor] 40 mg PO HS 09/08/17 09/10/17 Famotidine [Pepcid] 20 mg PO HS 09/08/17 09/10/17 Hydrocodone/Acetaminophen [[place] 1 - 2 tab PO Q4HR PRN 09/08/17 09/10/17 5-325] Sucralfate [Carafate] 1 gm PO HS 09/08/17 09/10/17 Aspirin EC [Ecotrin] 325 mg PO DAILY 09/10/17 09/10/17 HYDROcodone/APAP 5-325MG [[place] 1 tab PO TID PRN 09/10/17 09/10/17 5-325] Lidocaine-Prilocaine Cream [Emla 1 applic TOPICAL DIRECTED PRN 09/10/1709/10 Cream 2.5%/2.5%] Lipase/Protease/Amylase [Creon Dr 1 cap PO TID-W/MEALS 09/10/17 09/10/17 24,000 Units Capsule] Ondansetron HCl [Zofran] 8 mg PO DAILY PRN 09/10/17 09/10/17 Polyethylene Glycol 3350 [Miralax] 17 gm PO DAILY PRN 09/10/17 09/10/17 traMADol HCL [Ultram] 50 mg PO DAILY PRN 09/10/17 09/10/17 Allergies Allergy/AdvReac Type Severity Reaction Status Date / Time No Known Allergies Allergy Verified 09/10/17 12:41 Review of Systems ROS Statement: Those systems with pertinent positive or pertinent negative responses have been documented in the HPI. ROS Other: All systems not noted in ROS Statement are negative. Past Medical History Past Medical History: Coronary Artery Disease (CAD), Hyperlipidemia, Hypertension Additional Past Medical History / Comment(s): pancreatic CA- recent dx pt to start chemo Tuesday History of Any Multi-Drug Resistant Organisms: None Reported Past Surgical History: Cholecystectomy, Heart Catheterization With Stent Additional Past Surgical History / Comment(s): stent x5, pilonidial cyst removed , hemmoriodectomy Past Anesthesia/Blood Transfusion Reactions: No Reported Reaction Date of Last Stent Placement:: 2012 Past Psychological History: No Psychological Hx Reported Smoking Status: Former smoker Past Alcohol Use History: Occasional Past Drug Use History: None Reported General Exam Limitations: no limitations General appearance: alert, in no apparent distress Head exam: Present: atraumatic, normocephalic, normal inspection Respiratory exam: Present: normal lung sounds bilaterally. Absent: respiratory distress, wheezes, rales, rhonchi, stridor Cardiovascular Exam: Present: regular rate, normal rhythm, normal heart sounds. Absent: systolic murmur, diastolic murmur, rubs, gallop, clicks GI/Abdominal exam: Present: soft, tenderness ([id number] periumbilical, epigastric tenderness), normal bowel sounds. Absent: distended, guarding, rebound, rigid Back exam: Absent: CVA tenderness (R), CVA tenderness (L) Neurological exam: Present: alert, oriented X3, CN II-XII intact Skin exam: Present: warm, dry, intact, normal color. Absent: rash Course Vital Signs 09/10/17 09/10/17 10:48 13:35 Temperature 97 F L 97 F L Pulse Rate 95 82 Respiratory 18 18 Rate Blood Pressure 97/57 139/63 O2 Sat by Pulse 95 97 Oximetry Medical Decision Making - Lab Data Result diagrams: 09/10/17 11:50 09/10/17 11:50 Lab Results 09/10/17 09/10/17 09/10/17 Range/Units 11:50 11:50 11:50 WBC 11.9 H (3.8-10.6) k/uL RBC 4.68 (4.30-5.90) m/uL Hgb 14.2 (13.0-17.5) gm/dL Hct 43.7 (39.0-53.0) % MCV 93.3 (80.0-100.0) fL MCH 30.3 (25.0-35.0) pg MCHC 32.5 (31.0-37.0) g/dL RDW 13.7 (11.5-15.5) % Plt Count 186 (150-450) k/uL Neutrophils % 76 % Lymphocytes % 12 % Monocytes % 6 % Eosinophils % 3 % Basophils % 0 % Neutrophils # 9.1 H (1.3-7.7) k/uL Lymphocytes # 1.5 (1.0-4.8) k/uL Monocytes # 0.7 (0-1.0) k/uL Eosinophils # 0.4 (0-0.7) k/uL Basophils # 0.0 (0-0.2) k/uL Sodium 139 (137-145) mmol/L Potassium 3.7 (3.5-5.1) mmol/L Chloride 97 L (98-107) mmol/L Carbon Dioxide 26 (22-30) mmol/L Anion Gap 16 mmol/L BUN 26 H (9-20) mg/dL Creatinine 0.80 (0.66-1.25) mg/dL Est GFR (MDRD) Af Amer >60 (>60 ml/min/1.73 sqM) Est GFR (MDRD) Non-Af >60 (>60 ml/min/1.73 sqM) Glucose 213 H (74-99) mg/dL Plasma Lactic Acid Moisés 1.3 (0.7-2.0) mmol/L Calcium 9.5 (8.4-10.2) mg/dL Total Bilirubin 0.9 (0.2-1.3) mg/dL AST 21 (17-59) U/L ALT 39 (21-72) U/L Alkaline Phosphatase 137 H (38-126) U/L Troponin I (0.000-0.034) ng/mL Total Protein 5.9 L (6.3-8.2) g/dL Albumin 3.4 L (3.5-5.0) g/dL Amylase 107 (30-110) U/L Lipase 1004 H (23-300) U/L Urine Color Urine Appearance (Clear) Urine pH (5.0-8.0) Ur Specific [place] (1.001-1.035) Urine Protein (Negative) Urine Glucose (UA) (Negative) Urine Ketones (Negative) Urine Blood (Negative) Urine Nitrite (Negative) Urine Bilirubin (Negative) Urine Urobilinogen (<2.0) mg/dL Ur Leukocyte Esterase (Negative) Urine RBC (0-5) /hpf Urine WBC (0-5) /hpf Ur Squamous Epith Cells (0-4) /hpf Urine Bacteria (None) /hpf Granular Casts (0) /lpf Urine Mucus (None) /hpf 09/10/17 09/10/17 Range/Units 11:50 12:41 WBC (3.8-10.6) k/uL RBC (4.30-5.90) m/uL Hgb (13.0-17.5) gm/dL Hct (39.0-53.0) % MCV (80.0-100.0) fL MCH (25.0-35.0) pg MCHC (31.0-37.0) g/dL RDW (11.5-15.5) % Plt Count (150-450) k/uL Neutrophils % % Lymphocytes % % Monocytes % % Eosinophils % % Basophils % % Neutrophils # (1.3-7.7) k/uL Lymphocytes # (1.0-4.8) k/uL Monocytes # (0-1.0) k/uL Eosinophils # (0-0.7) k/uL Basophils # (0-0.2) k/uL Sodium (137-145) mmol/L Potassium (3.5-5.1) mmol/L Chloride (98-107) mmol/L Carbon Dioxide (22-30) mmol/L Anion Gap mmol/L BUN (9-20) mg/dL Creatinine (0.66-1.25) mg/dL Est GFR (MDRD) Af Amer (>60 ml/min/1.73 sqM) Est GFR (MDRD) Non-Af (>60 ml/min/1.73 sqM) Glucose (74-99) mg/dL Plasma Lactic Acid Moisés (0.7-2.0) mmol/L Calcium (8.4-10.2) mg/dL Total Bilirubin (0.2-1.3) mg/dL AST (17-59) U/L ALT (21-72) U/L Alkaline Phosphatase (38-126) U/L Troponin I <0.012 (0.000-0.034) ng/mL Total Protein (6.3-8.2) g/dL Albumin (3.5-5.0) g/dL Amylase (30-110) U/L Lipase (23-300) U/L Urine Color Yellow Urine Appearance Clear (Clear) Urine pH 6.0 (5.0-8.0) Ur Specific [place] 1.021 (1.001-1.035) Urine Protein 1+ H (Negative) Urine Glucose (UA) 4+ H (Negative) Urine Ketones 3+ H (Negative) Urine Blood Negative (Negative) Urine Nitrite Negative (Negative) Urine Bilirubin 1+ H (Negative) Urine Urobilinogen 3.0 (<2.0) mg/dL Ur Leukocyte Esterase Trace H (Negative) Urine RBC 1 (0-5) /hpf Urine WBC 4 (0-5) /hpf Ur Squamous Epith Cells 1 (0-4) /hpf Urine Bacteria Rare H (None) /hpf Granular Casts 1 (0) /lpf Urine Mucus Rare H (None) /hpf 09/10/17 11:57 EKG performed at 11:07 normal sinus rhythm with left axis deviation rate of 83 WI interval 164 QRS duration 106 QT/TC 420/103 Disposition Clinical Impression: Pancreatic cancer, Dehydration, Nausea & vomiting, Hyperglycemia Disposition: ADMITTED IP TO THIS HOSP Condition: Fair Referrals: Leodan Tadeo MD [Primary Care Provider] - 1-2 days
[2017-09-10 12:11] LABS: Basophils % (A) 0 %; CH 30.7; CHCM 33.1; Eosinophils # (A) 0.4 k/uL (0-0.7); Eosinophils % (A) 3 %; HCT 43.7 % (39.0-53.0); HDW 2.41; HGB 14.2 gm/dL (13.0-17.5); Luc % (Auto) 2; Lymphocytes # (A) 1.5 k/uL (1.0-4.8); Lymphocytes % (A) 12 %; MCH 30.3 pg (25.0-35.0); MCHC 32.5 g/dL (31.0-37.0); MCV 93.3 fL (80.0-100.0); Mean Platelet Volume 7.9; Monocytes # (A) 0.7 k/uL (0-1.0); Monocytes % (A) 6 %; Neutrophils # (A) 9.1 k/uL (1.3-7.7); Neutrophils % (A) 76 %; RBC 4.68 m/uL (4.30-5.90); RDW 13.7 % (11.5-15.5); WBC 11.9 k/uL (3.8-10.6); WBC (Perox) 12.23
[2017-09-10 12:20] LABS: ALT 39 U/L (21-72); AST 21 U/L (17-59); Alkaline Phosphatase 137 U/L (38-126); Amylase 107 U/L (30-110); Anion Gap 16 mmol/L; Blood Urea Nitrogen 26 mg/dL (9-20); Calcium 9.5 mg/dL (8.4-10.2); Carbon Dioxide 26 mmol/L (22-30); Chloride 97 mmol/L (98-107); Glucose 213 mg/dL (74-99); Non-African American GFR(MDRD) >60 (>60 ml/min/1.73 sqM); Potassium 3.7 mmol/L (3.5-5.1); Sodium 139 mmol/L (137-145); Total Bilirubin 0.9 mg/dL (0.2-1.3); Total Protein 5.9 g/dL (6.3-8.2)
--- NOTE | 2017-09-10 12:49 | XR ---
EXAMINATION TYPE: XR KUB , 2 VIEWS DATE OF EXAM ORDERED: 09/10/2017 HISTORY: pain. COMPARISON: None. FINDINGS: The lung bases are clear. There is been a cholecystectomy. There are is a 7 mm calcification overlying the right renal shadow. This may represent renal calculus . There is no evidence of obstruction or free air. There are phleboliths in the pelvis. There is a s ignificant amount of feces within the colon. IMPRESSION: 1. I CANNOT EXCLUDE A RIGHT RENAL CALCULUS. 2. CONSTIPATION.
[2017-09-10 13:01] LABS: Appearance,Urine Clear (Clear); Bacteria,Urine Rare /hpf; Bilirubin,Urine 1+ (Negative); Glucose,Urine (UA) 4+ (Negative); Granular Casts,Urine 1 /lpf (0); Leukocyte Esterase,Urine Trace (Negative); Mucus,Urine Rare /hpf; Nitrite,Urine Negative (Negative); Particle Count 1690; Protein,Urine 1+ (Negative); RBC,Urine 1 /hpf (0-5); Specific Gravity,Urine 1.021 (1.001-1.035); Squamous Epithelial Cell,Urine 1 /hpf (0-4); UA Billing (MACRO vs. MICRO) MICRO; WBC,Urine 4 /hpf (0-5)
[2017-09-10 13:11] LABS: Ketones,Urine 3+ (Negative)
[2017-09-10] MEDS ORDERED: NALOXONE 0.4 MG/ML 1 ML VIAL IV PRN (14:06)
[2017-09-10] MEDS ORDERED: POLYETHYLENE GLYCOL 3350 17 GM POWD.PACK PO PRN (14:07)
[2017-09-10] MEDS: SODIUM CHLORIDE 0.9% 1,000 ML IV SCH (15:48)
[2017-09-10 16:27] VITALS: BMI 24.5
[2017-09-10 16:55] LABS: Glucose,Whole Blood 147 mg/dL (75-99)
[2017-09-10] MEDS: HYDROmorphone 0.5 MG/0.5 ML SYRINGE IVP PRN ×2 (17:03→23:50)
[2017-09-10] MEDS: INSULIN ASPART 100 UNIT/ML 1 ML 10 ML VIAL SQ SCH ×2 (18:02→21:12)
[2017-09-10] MEDS: LIPASE 5,000/PROTEASE 17,000/AMYLASE 27,0000 PO SCH (18:02)
[2017-09-10] MEDS: LISINOPRIL 5 MG TAB PO SCH (21:04)
[2017-09-10] MEDS: SUCRALFATE 1 GM TAB PO SCH (21:04)
[2017-09-10] MEDS: ATENOLOL 25 MG TAB PO SCH (21:04)
[2017-09-10] MEDS: ATORVASTATIN 40 MG TAB PO SCH (21:04)
[2017-09-10] MEDS: ISOSORBIDE MONONITRATE ER 30 MG TAB.ER.24H PO SCH (21:04)
[2017-09-10 21:10] LABS: Glucose,Whole Blood 140 mg/dL (75-99)
[2017-09-11] MEDS: HYDROmorphone 0.5 MG/0.5 ML SYRINGE IVP PRN (03:06)
[2017-09-11] MEDS: SODIUM CHLORIDE 0.9% 1,000 ML IV SCH ×2 (06:14→18:07)
[2017-09-11] MEDS: HYDROcodone/APAP 5-325MG 1 EACH TAB PO PRN ×2 (06:15→15:01)
[2017-09-11 07:02] LABS: Glucose,Whole Blood 123 mg/dL (75-99)
[2017-09-11] MEDS: LIPASE 5,000/PROTEASE 17,000/AMYLASE 27,0000 PO SCH ×3 (08:07→18:03)
[2017-09-11] MEDS: INSULIN ASPART 100 UNIT/ML 1 ML 10 ML VIAL SQ SCH ×4 (08:07→22:45)
[2017-09-11] MEDS: ONDANSETRON 4 MG/2 ML VIAL IVP PRN ×2 (08:10→18:03)
[2017-09-11] MEDS: PANTOPRAZOLE 40 MG/10 ML VIAL IV SCH (09:36)
[2017-09-11] MEDS: ASPIRIN 325 MG TAB PO SCH (09:36)
[2017-09-11 12:03] LABS: Glucose,Whole Blood 140 mg/dL (75-99)
--- NOTE | 2017-09-11 12:04 | P.HPIM ---
History of Present Illness H&P Date: 09/11/17 This is a 77-year-old male patient of Dr. Tadeo with past medical history of coronary artery disease status post heart catheterization and stenting 5, hyperlipidemia, hypertension, pancreatic cancer recently diagnosed and plan to start chemotherapy on Tuesday under the care of Dr. Kunz. His history of having ongoing problems with nausea and vomiting for a couple weeks. He has Zofran at home but this did not help. He states she he was in the emergency center on and was hydrated and sent home but yesterday he became really bad. He states no bowel movement for 2 days. Patient complains of pain in his epigastric area that radiates into his chest. No shortness of breath. He feels weak. KUB showed cannot exclude right renal calculus. Constipation. Patient was afebrile, white count 11.9, hemoglobin at 14.2. Lactic acid was 1.3. Amylase 107 and lipase 1004. Troponin was negative. EKG showed no acute ST-T wave changes. Urinalysis was clear with nitrate negative and leukoesterase trace, rare bacteria. Patient was admitted to the oncology unit and started on IV hydration, Zofran for nausea, Dilaudid for pain control and Protonix. Consult placed with oncology. Patient did eat a small amount of breakfast this morning and feels nausea and vomiting much improved. He is very anxious to be discharged tomorrow so he can make his 2:00 appointment for chemotherapy. Oncology is on consult. Review of Systems All systems: negative Constitutional: Reports fatigue, Denies chills, Denies fever Eyes: denies blurred vision, denies pain Ears, nose, mouth and throat: Denies headache, Denies sore throat Cardiovascular: Denies chest pain, Denies shortness of breath Respiratory: Denies cough Gastrointestinal: Reports abdominal pain, Reports nausea, Reports vomiting, Denies diarrhea Musculoskeletal: Denies myalgias Integumentary: Denies pruritus, Denies rash Neurological: Denies numbness, Denies weakness Psychiatric: Denies anxiety, Denies depression Endocrine: Denies fatigue, Denies weight change Past Medical History Past Medical History: Coronary Artery Disease (CAD), Hyperlipidemia, Hypertension Additional Past Medical History / Comment(s): pancreatic CA- recent dx pt to start chemo Tuesday History of Any Multi-Drug Resistant Organisms: None Reported Past Surgical History: Cholecystectomy, Heart Catheterization With Stent Additional Past Surgical History / Comment(s): stent x5, pilonidial cyst removed , hemmoriodectomy EGD that nicked his bowel followed by open laparotomy done at [facility] in July of this year, colonoscopy, port placement Past Anesthesia/Blood Transfusion Reactions: No Reported Reaction Date of Last Stent Placement:: 2012 Past Psychological History: No Psychological Hx Reported Smoking Status: Former smoker Past Alcohol Use History: Occasional Additional Past Alcohol Use History / Comment(s): It was a smoker of one pack per week for 20-25 years and quit in 1983. He denies any medical marijuana, marijuana, street drug use. He drinks an occasional beer. He lives at home with his . Past Drug Use History: None Reported - Past Family History Father Additional Family Medical History / Comment(s): Father at age 84 from old age with no major medical problems. Mother Additional Family Medical History / Comment(s): Mother from leukemia. Brother(s) Additional Family Medical History / Comment(s): She has a brother that from stomach cancer. Patient has 3 sisters with no major medical problems. Patient has 3 children with no major medical problems. Medications and Allergies Home Medications Medication Instructions Recorded Confirmed Type Isosorbide Mononitrate ER [Imdur] 30 mg PO HS 02/24/14 09/10/17 History Atenolol [Atenolol] 25 mg PO HS 03/08/14 09/10/17 History Lisinopril [Lisinopril] 5 mg PO HS 03/08/14 09/10/17 History Nitroglycerin Sl Tabs [Nitrostat] 0.4 mg SL Q5M PRN 03/08/14 09/10/17 History Multivitamin/Iron/Folic Acid 1 tab PO DAILY 05/28/14 09/10/17 History [Centrum Complete Multivit Tab] Pantoprazole Sodium 40 mg PO HS 03/17/15 09/10/17 History Atorvastatin Calcium [Lipitor] 40 mg PO HS 09/08/17 09/10/17 History Famotidine [Pepcid] 20 mg PO HS 09/08/17 09/10/17 History Hydrocodone/Acetaminophen [[place] 1 - 2 tab PO Q4HR PRN 09/08/17 09/10/17 History 5-325] Sucralfate [Carafate] 1 gm PO HS 09/08/17 09/10/17 History Aspirin EC [Ecotrin] 325 mg PO DAILY 09/10/17 09/10/17 History HYDROcodone/APAP 5-325MG [[place] 1 tab PO TID PRN 09/10/17 09/10/17 History 5-325] Lidocaine-Prilocaine Cream [[place]ml[place] 1 applic TOPICAL DIRECTED PRN 09/10/1709/10 History Cream 2.5%/2.5%] Lipase/Protease/Amylase [Jeff Guillaume 1 cap PO TID-W/MEALS 09/10/17 09/10/17 History 24,000 Units Capsule] Ondansetron HCl [Zofran] 8 mg PO DAILY PRN 09/10/17 09/10/17 History Polyethylene Glycol 3350 [Miralax] 17 gm PO DAILY PRN 09/10/17 09/10/17 History traMADol HCL [Ultram] 50 mg PO DAILY PRN 09/10/17 09/10/17 History Allergies Allergy/AdvReac Type Severity Reaction Status Date / Time No Known Allergies Allergy Verified 09/10/17 12:41 Physical Exam Vitals: Vital Signs Temp Pulse Pulse Resp BP BP Pulse Ox 09/10/17 23:00 98.4 F 79 16 164/72 97 09/10/17 16:15 97.8 F 77 16 182/76 98 09/10/17 15:46 97.4 F L 80 14 167/71 96 09/10/17 13:35 97 F L 82 18 139/63 97 09/10/17 10:48 97 F L 95 18 97/57 95 Intake and Output 09/10/17 09/11/17 09/11/17 22:59 06:59 14:59 Intake Total 300 1190 Balance 300 1190 Intake: IV 300 600 Sodium Chloride 0.9% 1, 300 600 000 ml @ 75 mls/hr IV . [id number] [facility] Rx#:[id number] Oral 590 Other: Voiding Method Toilet Toilet Weight 79.746 kg Gen: This is a 77-year-old male. He is sitting up in bed and appears to be in no acute distress. HEENT: Head is atraumatic, normocephalic. Pupils equal, round. Sclerae is anicteric. NECK: Supple. No JVD. No lymphadenopathy. No thyromegaly. LUNGS: Clear to auscultation. No wheezes or rhonchi. No intercostal retractions. HEART: Regular rate and rhythm. No murmur. ABDOMEN: Soft. Bowel sounds are present. No masses. Epigastric tenderness. EXTREMITIES: No pedal edema. No calf tenderness. Dorsalis pedis +2 NEUROLOGICAL: Patient is awake, alert and oriented x3. Cranial nerves 2 through 12 are grossly intact. Results CBC & Chem 7: 09/10/17 11:50 09/10/17 11:50 Labs: Abnormal Lab Results - Last 24 Hours (Table) 09/10/17 09/10/17 09/10/17 Range/Units 11:50 11:50 12:41 WBC 11.9 H (3.8-10.6) k/uL Neutrophils # 9.1 H (1.3-7.7) k/uL Chloride 97 L (98-107) mmol/L BUN 26 H (9-20) mg/dL Glucose 213 H (74-99) mg/dL POC Glucose (mg/dL) (75-99) mg/dL Alkaline Phosphatase 137 H (38-126) U/L Total Protein 5.9 L (6.3-8.2) g/dL Albumin 3.4 L (3.5-5.0) g/dL Lipase 1004 H (23-300) U/L Urine Protein 1+ H (Negative) Urine Glucose (UA) 4+ H (Negative) Urine Ketones 3+ H (Negative) Urine Bilirubin 1+ H (Negative) Ur Leukocyte Esterase Trace H (Negative) Urine Bacteria Rare H (None) /hpf Urine Mucus Rare H (None) /hpf 09/10/17 09/10/17 09/11/17 Range/Units 16:53 21:09 06:59 WBC (3.8-10.6) k/uL Neutrophils # (1.3-7.7) k/uL Chloride (98-107) mmol/L BUN (9-20) mg/dL Glucose (74-99) mg/dL POC Glucose (mg/dL) 147 H 140 H 123 H (75-99) mg/dL Alkaline Phosphatase (38-126) U/L Total Protein (6.3-8.2) g/dL Albumin (3.5-5.0) g/dL Lipase (23-300) U/L Urine Protein (Negative) Urine Glucose (UA) (Negative) Urine Ketones (Negative) Urine Bilirubin (Negative) Ur Leukocyte Esterase (Negative) Urine Bacteria (None) /hpf Urine Mucus (None) /hpf Thrombosis Risk Factor Assmnt - DVT/VTE Prophylaxis DVT/VTE Prophylaxis: Pharmacologic Prophylaxis ordered - Choose All That Apply Each Factor Represents 1 point: Medical pt on bed rest Each Risk Factor Represents 2 Points: Central venous access Other congenital or acquired thrombophilia - If yes, enter type in comment: No Thrombosis Risk Factor Assessment Total Risk Factor Score: 3 Thrombosis Risk Factor Assessment Level: Moderate Risk Assessment and Plan Plan: 1. Dehydration secondary to persistent nausea and vomiting. Patient started on IV hydration with Zofran for nausea and vomiting. Continue Protonix 2. Recent diagnosis of pancreatic cancer under the care of Dr. Kunz with plan to start chemotherapy on Tuesday. Consult with oncology. Patient does have port in place. 3. Hypertension. Continue atenolol 25 mg at bedtime, lisinopril 5 mg at bedtime. 4. Hyperlipidemia. Continue Lipitor 40 mg at bedtime. 5. History of coronary artery disease status post PCI. Continue Imdur 30 mg daily, Lipitor 40 mg daily, atenolol 25 mg daily. 6. Gastroesophageal reflux disease and GI prophylaxis. Protonix 40 mg IV daily. 7. DVT prophylaxis. Heparin subcu. Patient will be admitted to the hospital for a minimum of 2 night stay. Discharge plan: Return home Impression and plan of care have been directed as dictated by the signing physician. Klaudia Kimball nurse practitioner acting as scribe for signing physician.
[2017-09-11] MEDS: MULTIVITAMINS, THERA 1 EACH TAB PO SCH (12:39)
--- NOTE | 2017-09-11 16:51 | CONS ---
CONSULTATION DATE OF SERVICE: September 11, 2017. REASON FOR CONSULTATION: Pancreatic cancer. CHIEF COMPLAINT: Weak and tired. HISTORY OF PRESENT ILLNESS: Mr. Leger is a very pleasant 77-year-old gentleman who was recently seen by my partner, Dr. Kunz in the office. The patient was recently diagnosed with locally advanced pancreatic carcinoma and was found to have a mass when he presented with abdominal pain in July of 2017. A CT scan was done and revealed a 2.5 cm mass in the head of the pancreas. Subsequently, the patient underwent upper EUS at [facility] and an FNA confirmed the diagnosis. However, the procedure was complicated by perforation of his duodenum was required surgical repair. Subsequently, the patient recovered from that and because it was felt to be not resectable at this point in time, the plan was to proceed with neoadjuvant chemotherapy with a combination of Gemzar and Abraxane. The patient has not started treatment yet. He was supposed to start his 1st cycle tomorrow. However, he came into the hospital yesterday because his be feeling weak with poor oral intake and he was found to be dehydrated and ended up being admitted for IV hydration. He feels better today, actually is eating well and he has some constipation and he has lost 30 pounds over the last month or so. No fever or chills. No melena, hematochezia, hematuria, hemoptysis, hematemesis or epistaxis. PAST MEDICAL HISTORY: In addition to what is stated above in regard to history of pancreatic cancer, he has a history of coronary artery disease, hyperlipidemia, hypertension. He had a history of cholecystectomy, heart catheterization with stent placement. Hemorrhoidectomy, colonoscopy, and a port placement. SOCIAL HISTORY: Used to smoke. He is an occasional alcohol drinker. FAMILY HISTORY: For malignancy. His mother of leukemia. He had a brother who had stomach cancer. REVIEW OF SYSTEMS: As stated above in the history of present illness. ALLERGIES: There is no known drug allergy. MEDICATIONS: Include aspirin 325 mg daily. Tenormin 25 mg at bedtime. Lipitor 40 mg daily, heparin 5000 units subcu daily and [place] 5/325 mg daily. Dilaudid 0.5 mg every 3 hours as needed, NovoLog sliding scale, Imdur 30 mg daily, Zenpep 5000 units t.i.d., Zestril 5 mg at bedtime. Theragran 1 mg daily. Zofran 8 mg IV every 8 hours as needed, Protonix 40 mg IV daily, MiraLAX p.o. daily as needed, Carafate 1 g at bedtime. PHYSICAL EXAMINATION: He is alert, oriented x3. He does not appear to be in distress. His vital signs are temperature 98.4, afebrile, pulse 79 and regular, respirations 16, blood pressure 164/72. HEENT: Normocephalic, atraumatic. No obvious icterus. NECK: Supple. Chest equal expansion bilaterally. Lungs are clear to auscultation and percussion. Heart is regular rhythm. ABDOMEN: Soft. No obvious organomegaly or masses. Bowel sounds present. Extremities revealed no edema. Skin: No significant bruise, petechiae. Lymphatic: No peripheral or cervical supraclavicular lymph nodes. Musculoskeletal: Moving all extremities appropriately. No percussion tenderness on palpitation of sternum. LABORATORY DATA: WBC 11.9, hemoglobin is 14.2, hematocrit 43.7, platelets are 186. IMPRESSION: 1. Locally advanced pancreatic carcinoma with diagnostic and therapeutic circumstances stated above. The patient has not started any neoadjuvant therapy yet. 2. Dehydration, appears to be improved. 3. Multiple other comorbidities. RECOMMENDATION: 1. Continue IV hydration. 2. The patient appears to be doing well and if he continues to remain stable, he could be discharged home tomorrow and then he will follow up in our office to start his neoadjuvant therapy as scheduled. The above was discussed with the patient's family at bedside and I answered all the questions. Thank you very much for asking me to see this nice gentleman's care. MMODL / IJN: [id number] /
[2017-09-11 16:59] LABS: Glucose,Whole Blood 128 mg/dL (75-99)
[2017-09-11 20:24] LABS: Glucose,Whole Blood 119 mg/dL (75-99)
[2017-09-11] MEDS: ATENOLOL 25 MG TAB PO SCH (22:46)
[2017-09-11] MEDS: ATORVASTATIN 40 MG TAB PO SCH (22:46)
[2017-09-11] MEDS: SUCRALFATE 1 GM TAB PO SCH (22:46)
[2017-09-11] MEDS: ISOSORBIDE MONONITRATE ER 30 MG TAB.ER.24H PO SCH (22:46)
[2017-09-11] MEDS: LISINOPRIL 5 MG TAB PO SCH (22:46)
[2017-09-11] MEDS: HEPARIN SODIUM,PORCINE 5,000 UNIT/ML 1 ML VIAL SQ SCH (22:47)
[2017-09-12] MEDS: ONDANSETRON 4 MG/2 ML VIAL IVP PRN ×2 (03:37→21:39)
[2017-09-12 06:49] LABS: CH 29.9; CHCM 32.6; HCT 36.9 % (39.0-53.0); HDW 2.46; HGB 12.3 gm/dL (13.0-17.5); MCH 30.8 pg (25.0-35.0); MCHC 33.4 g/dL (31.0-37.0); MCV 92.2 fL (80.0-100.0); Mean Platelet Volume 8.1; RDW 13.1 % (11.5-15.5); WBC 7.9 k/uL (3.8-10.6)
[2017-09-12 07:07] LABS: ALT 33 U/L (21-72); AST 22 U/L (17-59); Alkaline Phosphatase 102 U/L (38-126); Anion Gap 10 mmol/L; Blood Urea Nitrogen 13 mg/dL (9-20); Calcium 8.6 mg/dL (8.4-10.2); Carbon Dioxide 25 mmol/L (22-30); Chloride 104 mmol/L (98-107); Glucose 128 mg/dL (74-99); Non-African American GFR(MDRD) >60 (>60 ml/min/1.73 sqM); Potassium 3.5 mmol/L (3.5-5.1); Sodium 139 mmol/L (137-145); Total Bilirubin 0.6 mg/dL (0.2-1.3); Total Protein 5.2 g/dL (6.3-8.2)
[2017-09-12 07:43] LABS: Glucose,Whole Blood 117 mg/dL (75-99)
[2017-09-12] MEDS: INSULIN ASPART 100 UNIT/ML 1 ML 10 ML VIAL SQ SCH ×4 (08:12→21:33)
[2017-09-12] MEDS: PANTOPRAZOLE 40 MG/10 ML VIAL IV SCH ×2 (08:14→22:36)
[2017-09-12] MEDS: HEPARIN SODIUM,PORCINE 5,000 UNIT/ML 1 ML VIAL SQ SCH ×2 (08:14→21:38)
[2017-09-12] MEDS: LIPASE 5,000/PROTEASE 17,000/AMYLASE 27,0000 PO SCH ×3 (08:15→17:29)
[2017-09-12] MEDS: SODIUM CHLORIDE 0.9% 1,000 ML IV SCH ×5 (08:15→18:03)
[2017-09-12] MEDS ORDERED: SCOPOLAMINE 1.5MG/72HR PATCH TRANSDERM SCH (11:00)
[2017-09-12 11:37] LABS: Glucose,Whole Blood 111 mg/dL (75-99)
[2017-09-12] MEDS: METOCLOPRAMIDE 5 MG/ML 2 ML VIAL IVP SCH ×3 (12:12→23:30)
[2017-09-12] MEDS: MULTIVITAMINS, THERA 1 EACH TAB PO SCH (12:12)
--- NOTE | 2017-09-12 13:49 | P.PN ---
Subjective Progress Note Date: 09/12/17 This is a 77-year-old male patient of Dr. Tadeo with past medical history of coronary artery disease status post heart catheterization and stenting 5, hyperlipidemia, hypertension, pancreatic cancer recently diagnosed and plan to start chemotherapy on Tuesday under the care of Dr. Kunz. His history of having ongoing problems with nausea and vomiting for a couple weeks. He has Zofran at home but this did not help. He states she he was in the emergency center on and was hydrated and sent home but yesterday he became really bad. He states no bowel movement for 2 days. Patient complains of pain in his epigastric area that radiates into his chest. No shortness of breath. He feels weak. KUB showed cannot exclude right renal calculus. Constipation. Patient was afebrile, white count 11.9, hemoglobin at 14.2. Lactic acid was 1.3. Amylase 107 and lipase 1004. Troponin was negative. EKG showed no acute ST-T wave changes. Urinalysis was clear with nitrate negative and leukoesterase trace, rare bacteria. Patient was admitted to the oncology unit and started on IV hydration, Zofran for nausea, Dilaudid for pain control and Protonix. Consult placed with oncology. Patient did eat a small amount of breakfast this morning and feels nausea and vomiting much improved. He is very anxious to be discharged tomorrow so he can make his 2:00 appointment for chemotherapy. Oncology is on consult. 09/12: Patient developed nausea and vomiting and states he is unable to keep anything down. His vomitus green colored. IV fluids will be resumed at 100 mL per hour. Zofran increased frequency, Reglan added and scopolamine patch. Protonix increased to twice daily. He continues to have epigastric discomfort radiating up into the mid sternal area. Patient will not be able to make appointment today for chemotherapy. Otherwise patient states he is feeling well. Objective - Vital Signs Vital signs: Vital Signs Temp 97.9 F 09/12/17 07:00 Pulse 68 09/12/17 07:00 Resp 18 09/12/17 07:00 BP 198/81 09/12/17 07:00 Pulse Ox 95 09/12/17 07:00 Intake & Output 09/11/17 09/12/17 09/12/17 18:59 06:59 18:59 Intake Total 800 900 Balance 800 900 Weight 79.746 kg Intake: IV 800 900 Sodium Chloride 0.9% 1, 800 900 000 ml @ 75 mls/hr IV . [id number] [facility] Rx#:[id number] Other: Voiding Method Toilet Toilet Toilet # Voids 1 - Exam Gen: This is a 77-year-old male. He is sitting up in bed and appears to be in no acute distress. HEENT: Head is atraumatic, normocephalic. Pupils equal, round. Sclerae is anicteric. NECK: Supple. No JVD. No lymphadenopathy. No thyromegaly. LUNGS: Clear to auscultation. No wheezes or rhonchi. No intercostal retractions. HEART: Regular rate and rhythm. No murmur. ABDOMEN: Soft. Bowel sounds are present. No masses. Epigastric tenderness. EXTREMITIES: No pedal edema. No calf tenderness. Dorsalis pedis +2 NEUROLOGICAL: Patient is awake, alert and oriented x3. Cranial nerves 2 through 12 are grossly intact. - Labs CBC & Chem 7: 09/12/17 06:05 09/12/17 06:05 Labs: Abnormal Lab Results - Last 24 Hours (Table) 09/11/17 09/11/17 09/12/17 Range/Units 16:56 20:21 06:05 RBC 4.00 L (4.30-5.90) m/uL Hgb 12.3 L (13.0-17.5) gm/dL Hct 36.9 L (39.0-53.0) % Creatinine (0.66-1.25) mg/dL Glucose (74-99) mg/dL POC Glucose (mg/dL) 128 H 119 H (75-99) mg/dL Total Protein (6.3-8.2) g/dL Albumin (3.5-5.0) g/dL 09/12/17 09/12/17 09/12/17 Range/Units 06:05 07:34 11:32 RBC (4.30-5.90) m/uL Hgb (13.0-17.5) gm/dL Hct (39.0-53.0) % Creatinine 0.60 L (0.66-1.25) mg/dL Glucose 128 H (74-99) mg/dL POC Glucose (mg/dL) 117 H 111 H (75-99) mg/dL Total Protein 5.2 L (6.3-8.2) g/dL Albumin 2.7 L (3.5-5.0) g/dL Assessment and Plan Plan: 1. Dehydration secondary to persistent nausea and vomiting. Patient started on IV hydration with Zofran for nausea and vomiting. Continue Protonix increased to twice daily. Reglan and scopolamine patch added 2. Recent diagnosis of pancreatic cancer under the care of Dr. Kunz with plan to start chemotherapy on Tuesday. Consult with oncology. Patient does have port in place. 3. Hypertension. Continue atenolol 25 mg at bedtime, lisinopril 5 mg at bedtime. 4. Hyperlipidemia. Continue Lipitor 40 mg at bedtime. 5. History of coronary artery disease status post PCI. Continue Imdur 30 mg daily, Lipitor 40 mg daily, atenolol 25 mg daily. 6. Gastroesophageal reflux disease and GI prophylaxis. Protonix 40 mg IV daily. 7. DVT prophylaxis. Heparin subcu. Discharge plan: Return home Impression and plan of care have been directed as dictated by the signing physician. Klaudia Kimball nurse practitioner acting as scribe for signing physician.
[2017-09-12] MEDS: ASPIRIN 325 MG TAB PO SCH (15:30)
[2017-09-12 17:31] LABS: Glucose,Whole Blood 94 mg/dL (75-99)
[2017-09-12 20:37] LABS: Glucose,Whole Blood 103 mg/dL (75-99)
[2017-09-12] MEDS: LISINOPRIL 5 MG TAB PO SCH (21:38)
[2017-09-12] MEDS: ATENOLOL 25 MG TAB PO SCH (21:38)
[2017-09-12] MEDS: ATORVASTATIN 40 MG TAB PO SCH (21:38)
[2017-09-12] MEDS: ISOSORBIDE MONONITRATE ER 30 MG TAB.ER.24H PO SCH (21:38)
[2017-09-12] MEDS: SUCRALFATE 1 GM TAB PO SCH (21:38)
[2017-09-13 00:27] VITALS: RESP 16
[2017-09-13] MEDS: ONDANSETRON 4 MG/2 ML VIAL IVP PRN (03:36)
[2017-09-13] MEDS: SODIUM CHLORIDE 0.9% 1,000 ML IV SCH ×3 (05:18→15:05)
[2017-09-13] MEDS: METOCLOPRAMIDE 5 MG/ML 2 ML VIAL IVP SCH ×4 (06:03→23:55)
[2017-09-13 07:17] LABS: Glucose,Whole Blood 105 mg/dL (75-99)
[2017-09-13] MEDS: INSULIN ASPART 100 UNIT/ML 1 ML 10 ML VIAL SQ SCH ×4 (07:58→20:23)
[2017-09-13] MEDS: LIPASE 5,000/PROTEASE 17,000/AMYLASE 27,0000 PO SCH ×3 (07:58→17:41)
[2017-09-13] MEDS: ASPIRIN 325 MG TAB PO SCH (07:59)
[2017-09-13] MEDS: PANTOPRAZOLE 40 MG/10 ML VIAL IV SCH ×2 (07:59→20:23)
[2017-09-13] MEDS: HEPARIN SODIUM,PORCINE 5,000 UNIT/ML 1 ML VIAL SQ SCH ×2 (07:59→20:23)
[2017-09-13] MEDS ORDERED: ALTEPLASE 2 MG VIAL (CATHFLO) IV STA (10:26)
[2017-09-13 10:40] LABS: CH 30.5; CHCM 33.3; HCT 38.2 % (39.0-53.0); HDW 2.81; HGB 12.5 gm/dL (13.0-17.5); MCHC 32.6 g/dL (31.0-37.0); Mean Platelet Volume 6.9; RBC 4.15 m/uL (4.30-5.90); RDW 12.2 % (11.5-15.5); WBC 7.7 k/uL (3.8-10.6)
[2017-09-13 11:24] LABS: Glucose 118 mg/dL (74-99); Total Protein 5.4 g/dL (6.3-8.2)
[2017-09-13 11:25] LABS: ALT 32 U/L (21-72); AST 20 U/L (17-59); Alkaline Phosphatase 102 U/L (38-126); Anion Gap 14 mmol/L; Blood Urea Nitrogen 9 mg/dL (9-20); Calcium 8.8 mg/dL (8.4-10.2); Carbon Dioxide 19 mmol/L (22-30); Chloride 106 mmol/L (98-107); Non-African American GFR(MDRD) >60 (>60 ml/min/1.73 sqM); Potassium 3.6 mmol/L (3.5-5.1); Sodium 139 mmol/L (137-145); Total Bilirubin 0.6 mg/dL (0.2-1.3)
[2017-09-13 11:42] LABS: Glucose,Whole Blood 97 mg/dL (75-99)
[2017-09-13] MEDS: MULTIVITAMINS, THERA 1 EACH TAB PO SCH (12:41)
--- NOTE | 2017-09-13 13:27 | P.PN ---
Subjective Progress Note Date: 09/13/17 This is a 77-year-old male patient of Dr. Tadeo with past medical history of coronary artery disease status post heart catheterization and stenting 5, hyperlipidemia, hypertension, pancreatic cancer recently diagnosed and plan to start chemotherapy on Tuesday under the care of Dr. Kunz. His history of having ongoing problems with nausea and vomiting for a couple weeks. He has Zofran at home but this did not help. He states she he was in the emergency center on and was hydrated and sent home but yesterday he became really bad. He states no bowel movement for 2 days. Patient complains of pain in his epigastric area that radiates into his chest. No shortness of breath. He feels weak. KUB showed cannot exclude right renal calculus. Constipation. Patient was afebrile, white count 11.9, hemoglobin at 14.2. Lactic acid was 1.3. Amylase 107 and lipase 1004. Troponin was negative. EKG showed no acute ST-T wave changes. Urinalysis was clear with nitrate negative and leukoesterase trace, rare bacteria. Patient was admitted to the oncology unit and started on IV hydration, Zofran for nausea, Dilaudid for pain control and Protonix. Consult placed with oncology. Patient did eat a small amount of breakfast this morning and feels nausea and vomiting much improved. He is very anxious to be discharged tomorrow so he can make his 2:00 appointment for chemotherapy. Oncology is on consult. 09/12: Patient developed nausea and vomiting and states he is unable to keep anything down. His vomitus green colored. IV fluids will be resumed at 100 mL per hour. Zofran increased frequency, Reglan added and scopolamine patch. Protonix increased to twice daily. He continues to have epigastric discomfort radiating up into the mid sternal area. Patient will not be able to make appointment today for chemotherapy. Otherwise patient states he is feeling well. 09/13: Patient has continued to have nausea and vomiting but may be related to Dilaudid which will be discontinued. It appears that the scopolamine patch has helped somewhat. He was able to take some clear liquids and a little bit of coffee 77 this morning. He denies any abdominal pain at this time is much improved from yesterday. He is passing gas but no bowel movement. Possible discharge by tomorrow. Objective - Vital Signs Vital signs: Vital Signs Temp 98.5 F 09/13/17 07:00 Pulse 63 09/13/17 07:00 Resp 16 09/13/17 07:00 BP 165/71 09/13/17 07:00 Pulse Ox 96 09/13/17 07:00 Intake & Output 09/12/17 09/13/17 09/13/17 18:59 06:59 18:59 Intake Total 800 1150 Balance 800 1150 Weight 79.746 kg Intake: IV 800 1150 Sodium Chloride 0.9% 1, 800 1150 000 ml @ 100 mls/hr IV . Q10H [facility] Rx#:[id number] Other: Voiding Method Toilet Toilet Toilet - Exam Gen: This is a 77-year-old male. He is sitting up in bed and appears to be in no acute distress. HEENT: Head is atraumatic, normocephalic. Pupils equal, round. Sclerae is anicteric. NECK: Supple. No JVD. No lymphadenopathy. No thyromegaly. LUNGS: Clear to auscultation. No wheezes or rhonchi. No intercostal retractions. HEART: Regular rate and rhythm. No murmur. ABDOMEN: Soft. Bowel sounds are present. No masses. Epigastric tenderness. EXTREMITIES: No pedal edema. No calf tenderness. Dorsalis pedis +2 NEUROLOGICAL: Patient is awake, alert and oriented x3. Cranial nerves 2 through 12 are grossly intact. - Labs CBC & Chem 7: 09/13/17 10:17 09/13/17 10:17 Labs: Abnormal Lab Results - Last 24 Hours (Table) 09/12/17 09/12/17 09/13/17 Range/Units 11:32 20:25 07:16 POC Glucose (mg/dL) 111 H 103 H 105 H (75-99) mg/dL Assessment and Plan Plan: 1. Dehydration secondary to persistent nausea and vomiting. Patient started on IV hydration with Zofran for nausea and vomiting. Continue Protonix increased to twice daily. Reglan and scopolamine patch added 2. Recent diagnosis of pancreatic cancer under the care of Dr. Kunz with plan to start chemotherapy on Tuesday. Consult with oncology. Patient does have port in place. 3. Hypertension. Continue atenolol 25 mg at bedtime, lisinopril 5 mg at bedtime. 4. Hyperlipidemia. Continue Lipitor 40 mg at bedtime. 5. History of coronary artery disease status post PCI. Continue Imdur 30 mg daily, Lipitor 40 mg daily, atenolol 25 mg daily. 6. Gastroesophageal reflux disease and GI prophylaxis. Protonix 40 mg IV daily. 7. DVT prophylaxis. Heparin subcu. Discharge plan: Return home tomorrow Impression and plan of care have been directed as dictated by the signing physician. Klaudia Kimball nurse practitioner acting as scribe for signing physician.
[2017-09-13] MEDS ORDERED: LISINOPRIL 5 MG TAB PO STA (15:39)
[2017-09-13 16:39] LABS: Glucose,Whole Blood 99 mg/dL (75-99)
[2017-09-13 20:04] LABS: Glucose,Whole Blood 143 mg/dL (75-99)
[2017-09-13] MEDS: ATORVASTATIN 40 MG TAB PO SCH (20:22)
[2017-09-13] MEDS: ATENOLOL 25 MG TAB PO SCH (20:22)
[2017-09-13] MEDS: LISINOPRIL 5 MG TAB PO SCH (20:23)
[2017-09-13] MEDS: SUCRALFATE 1 GM TAB PO SCH (20:23)
[2017-09-13] MEDS: ISOSORBIDE MONONITRATE ER 30 MG TAB.ER.24H PO SCH (20:23)
[2017-09-14] MEDS: METOCLOPRAMIDE 5 MG/ML 2 ML VIAL IVP SCH ×2 (00:54→07:09)
[2017-09-14 07:19] LABS: Glucose,Whole Blood 129 mg/dL (75-99)
[2017-09-14] MEDS: LIPASE 5,000/PROTEASE 17,000/AMYLASE 27,0000 PO SCH (08:09)
[2017-09-14] MEDS: PANTOPRAZOLE 40 MG/10 ML VIAL IV SCH (08:09)
[2017-09-14] MEDS: HEPARIN SODIUM,PORCINE 5,000 UNIT/ML 1 ML VIAL SQ SCH (08:09)
[2017-09-14] MEDS: ASPIRIN 325 MG TAB PO SCH (08:09)
[2017-09-14] MEDS: INSULIN ASPART 100 UNIT/ML 1 ML 10 ML VIAL SQ SCH (08:10)
[2017-09-14 08:40] VITALS: BP 131/64; PULSE 69; TEMP 98.9
--- NOTE | 2017-09-16 13:02 | P.DS ---
Providers Date of admission: 09/10/17 14:38 Expected date of discharge: 09/14/17 Attending physician: eLodan Tadeo Consults: 09/10/17 14:06 Consult Physician Stat Consulting Provider: Ramón Kunz Consult Reason/Comments: Pancreatic cancer Do you want consulting provider notified?: Yes Primary care physician: Leodan Carlyle [facility] Course: This is a 77-year-old male patient of Dr. Tadeo with past medical history of coronary artery disease status post heart catheterization and stenting 5, hyperlipidemia, hypertension, pancreatic cancer recently diagnosed and plan to start chemotherapy on Tuesday under the care of Dr. Kunz. His history of having ongoing problems with nausea and vomiting for a couple weeks. He has Zofran at home but this did not help. He states she he was in the emergency center on and was hydrated and sent home but yesterday he became really bad. He states no bowel movement for 2 days. Patient complains of pain in his epigastric area that radiates into his chest. No shortness of breath. He feels weak. KUB showed cannot exclude right renal calculus. Constipation. Patient was afebrile, white count 11.9, hemoglobin at 14.2. Lactic acid was 1.3. Amylase 107 and lipase 1004. Troponin was negative. EKG showed no acute ST-T wave changes. Urinalysis was clear with nitrate negative and leukoesterase trace, rare bacteria. Patient was admitted to the oncology unit and started on IV hydration, Zofran for nausea, Dilaudid for pain control and Protonix. Consult placed with oncology. Patient did eat a small amount of breakfast this morning and feels nausea and vomiting much improved. He is very anxious to be discharged tomorrow so he can make his 2:00 appointment for chemotherapy. Oncology is on consult. 09/12: Patient developed nausea and vomiting and states he is unable to keep anything down. His vomitus green colored. IV fluids will be resumed at 100 mL per hour. Zofran increased frequency, Reglan added and scopolamine patch. Protonix increased to twice daily. He continues to have epigastric discomfort radiating up into the mid sternal area. Patient will not be able to make appointment today for chemotherapy. Otherwise patient states he is feeling well. 09/13: Patient has continued to have nausea and vomiting but may be related to Dilaudid which will be discontinued. It appears that the scopolamine patch has helped somewhat. He was able to take some clear liquids and a little bit of coffee 77 this morning. He denies any abdominal pain at this time is much improved from yesterday. He is passing gas but no bowel movement. Possible discharge by tomorrow. 09/14: Patient states he has not had a bowel movement since admission. He has eaten half of a banana and coffee this morning. He believes that the nausea is improved with scopolamine patch which will be provided for home. Patient will also have Zofran at home as needed. Chemotherapy is now scheduled to start on the . Patient will be discharged home today in stable condition. Discharge diagnoses: 1. Dehydration secondary to persistent nausea and vomiting. 2. Recent diagnosis of pancreatic cancer under the care of Dr. Kunz with plan to start chemotherapy on Tuesday. 3. Hypertension. 4. Hyperlipidemia. 5. History of coronary artery disease status post PCI. 6. Gastroesophageal reflux disease Discharge plan: Return home Impression and plan of care have been directed as dictated by the signing physician. Klaudia Kimball nurse practitioner acting as scribe for signing physician. Patient Condition at Discharge: Good Plan - Discharge Summary Discharge Rx Participant: No New Discharge Prescriptions: New Scopolamine 1.5MG/72Hr Patch [TransDerm Scop] 1 patch TRANSDERM Q72H #10 patch Continue Isosorbide Mononitrate ER [Imdur] 30 mg PO HS Lisinopril 5 mg PO HS Atenolol 25 mg PO HS Nitroglycerin Sl Tabs [Nitrostat] 0.4 mg SL Q5M PRN PRN Reason: Chest Pain Multivitamin/Iron/Folic Acid [Centrum Complete Multivit Tab] 1 tab PO DAILY Pantoprazole Sodium 40 mg PO HS Sucralfate [Carafate] 1 gm PO HS Famotidine [Pepcid] 20 mg PO HS Hydrocodone/Acetaminophen [Clifton 5-325] 1 - 2 tab PO Q4HR PRN PRN Reason: pain Atorvastatin Calcium [Lipitor] 40 mg PO HS Aspirin EC [Ecotrin] 325 mg PO DAILY Polyethylene Glycol 3350 [Miralax] 17 gm PO DAILY PRN PRN Reason: Constipation Lidocaine-Prilocaine Cream [Emla Cream 2.5%/2.5%] 1 applic TOPICAL DIRECTED PRN PRN Reason: PORT ACCESS HYDROcodone/APAP 5-325MG [Clifton 5-325] 1 tab PO TID PRN PRN Reason: Pain Lipase/Protease/Amylase [Jeff Guillaume 24,000 Units Capsule] 1 cap PO TID-W/MEALS traMADol HCL [Ultram] 50 mg PO DAILY PRN PRN Reason: Pain Ondansetron HCl [Zofran] 8 mg PO DAILY PRN PRN Reason: Nausea Discharge Medication List Isosorbide Mononitrate ER [Imdur] 30 mg PO HS 02/24/14 [History] Atenolol 25 mg PO HS 03/08/14 [History] Lisinopril 5 mg PO HS 03/08/14 [History] Nitroglycerin Sl Tabs [Nitrostat] 0.4 mg SL Q5M PRN 03/08/14 [History] Multivitamin/Iron/Folic Acid [Centrum Complete Multivit Tab] 1 tab PO DAILY 03/06 [History] Pantoprazole Sodium 40 mg PO HS 03/17/15 [History] Atorvastatin Calcium [Lipitor] 40 mg PO HS 09/08/17 [History] Famotidine [Pepcid] 20 mg PO HS 09/08/17 [History] Hydrocodone/Acetaminophen [Clifton 5-325] 1 - 2 tab PO Q4HR PRN 09/08/17 [History] Sucralfate [Carafate] 1 gm PO HS 09/08/17 [History] Aspirin EC [Ecotrin] 325 mg PO DAILY 09/10/17 [History] HYDROcodone/APAP 5-325MG [Clifton 5-325] 1 tab PO TID PRN 09/10/17 [History] Lidocaine-Prilocaine Cream [Emla Cream 2.5%/2.5%] 1 applic TOPICAL DIRECTED PRN 09/10/17 [History] Lipase/Protease/Amylase [Jeff Guillaume 24,000 Units Capsule] 1 cap PO TID-W/MEALS [History] Ondansetron HCl [Zofran] 8 mg PO DAILY PRN 09/10/17 [History] Polyethylene Glycol 3350 [Miralax] 17 gm PO DAILY PRN 09/10/17 [History] traMADol HCL [Ultram] 50 mg PO DAILY PRN 09/10/17 [History] Scopolamine 1.5MG/72Hr Patch [TransDerm Scop] 1 patch TRANSDERM Q72H #10 patch 09/13/17 [Rx] Follow up Appointment(s)/Referral(s): Leodan Tadeo MD [Primary Care Provider] - 09/21/17 10:30 am Ramón Kunz MD [STAFF PHYSICIAN] - 1 Week (scheduled Tuesday for chemo) Patient Instructions/Handouts: Scopolamine (Absorbed through the skin), Dehydration (DC), Pancreatic Cancer (DC), Acute Nausea and Vomiting (DC) Discharge Disposition: HOME SELF-CARE
== END 2017-09-14 11:15 | disposition home or self-care (01) | DRG 641 ==
LOC: EC 10:43 → 5ONC 14:38
PROVIDERS: ADMIT Internal Medicine Geriatric Medicine; ATTEND Internal Medicine Geriatric Medicine
DX: E86.0 Dehydration (principal); C25.9 Malignant neoplasm of pancreas, unspecified; I10 Essential (primary) hypertension; N20.0 Calculus of kidney; K21.9 Gastro-esophageal reflux disease without esophagitis; R11.2 Nausea with vomiting, unspecified; E78.5 Hyperlipidemia, unspecified; I25.10 Atherosclerotic heart disease of native coronary artery without angina pectoris; K59.00 Constipation, unspecified; R73.9 Hyperglycemia, unspecified; R19.7 Diarrhea, unspecified; T40.2X5A Adverse effect of other opioids, initial encounter; Y92.009 Unspecified place in unspecified non-institutional (private) residence as the place of occurrence of the external cause; Z79.82 Long term (current) use of aspirin; Z79.899 Other long term (current) drug therapy; Z95.5 Presence of coronary angioplasty implant and graft; Z87.891 Personal history of nicotine dependence; Z80.0 Family history of malignant neoplasm of digestive organs; Z80.6 Family history of leukemia
CPT/HCPCS: 36415; 74000; 74020; 80053; 81001; 82150; 83605; 83690; 83735; 84100; 84484; 85025; 85027; 87040; 87086; 93005; 96361; 96374; 96375; 99284; 99285

== ENCOUNTER 2017-11-03 18:08 | Emergency (ER) | payer MEDICARE ==
[2017-11-03] MEDS ORDERED: ACETAMINOPHEN TAB 325 MG TAB PO STA (18:43)
[2017-11-03] MEDS: SODIUM CHLORIDE 0.9% 500 ML IV SCH ×2 (18:50→20:15)
[2017-11-03 18:54] LABS: Anisocytosis Slight; Basophils % (A) 0 %; Eosinophils # (A) 0.1 k/uL (0-0.7); Eosinophils % (A) 0 %; HCT 28.5 % (39.0-53.0); HGB 9.4 gm/dL (13.0-17.5); Lymphocytes # (A) 0.5 k/uL (1.0-4.8); Lymphocytes % (A) 4 %; MCH 31.3 pg (25.0-35.0); MCHC 32.8 g/dL (31.0-37.0); MCV 95.4 fL (80.0-100.0); Macrocytosis Slight; Mean Platelet Volume 7.7; Monocytes # (A) 0.2 k/uL (0-1.0); Monocytes % (A) 1 %; Neutrophils # (A) 12.5 k/uL (1.3-7.7); Neutrophils % (A) 94 %; Platelet Count 161 k/uL (150-450); RBC 2.99 m/uL (4.30-5.90); RDW 17.5 % (11.5-15.5); WBC 13.3 k/uL (3.8-10.6)
[2017-11-03 19:02] LABS: INR 1.2 (<1.2); Partial Thromboplastin Time 26.8 sec (22.0-30.0); Prothrombin Time 11.3 sec (9.0-12.0)
[2017-11-03 19:06] LABS: ALT 40 U/L (21-72); AST 28 U/L (17-59); Albumin 3.1 g/dL (3.5-5.0); Alkaline Phosphatase 107 U/L (38-126); Anion Gap 9 mmol/L; Blood Urea Nitrogen 14 mg/dL (9-20); Calcium 8.5 mg/dL (8.4-10.2); Carbon Dioxide 24 mmol/L (22-30); Chloride 100 mmol/L (98-107); Glucose 162 mg/dL (74-99); Potassium 4.7 mmol/L (3.5-5.1); Sodium 133 mmol/L (137-145); Total Protein 5.4 g/dL (6.3-8.2)
--- NOTE | 2017-11-03 19:08 | XR ---
EXAMINATION TYPE: XR chest 1V portable DATE OF EXAM: 11/03/2017 HISTORY: Fever. REFERENCE: Previous study dated 10/14/2017. FINDINGS: There is a central line in place via a right internal jugular approach. Its tip is in the s uperior vena cava. The lungs are clear. Pleural spaces are clear. Heart size is upper limits of normal. IMPRESSION: BORDERLINE CARDIOMEGALY.
[2017-11-03] MEDS ORDERED: PIPERACILLIN-TAZOBACTAM 4.5 GM in DEXTROSE/WATER 1 50ML.BAG IVPB STA (19:50)
--- NOTE | 2017-11-03 19:50 | ED ---
Fever HPI - General Chief Complaint: Fever Stated Complaint: Fever Time Seen by Provider: 11/03/17 18:23 Source: patient, EMS Mode of arrival: EMS Limitations: no limitations - History of Present Illness Initial Comments: This patient is a 77-year-old man brought to be evaluated for fever. The temperature was noted today a little after 1 in the afternoon. The patient is currently taking chemotherapy for pancreatic cancer. He is denying any other symptoms of infection. He did have a round of chemotherapy less than a week ago. MD Complaint: fever Onset/Timin -: hour(s) Temperature Source: oral Context: on chemotherapy Associated Symptoms: denies other symptoms Treatments Prior to Arrival: none - Related Data Home Medications Medication Instructions Recorded Confirmed Isosorbide Mononitrate ER [Imdur] 30 mg PO DAILY 02/24/14 11/03/17 Atenolol 25 mg PO DAILY 03/08/14 11/03/17 Lisinopril 5 mg PO DAILY 03/08/14 11/03/17 Nitroglycerin Sl Tabs [Nitrostat] 0.4 mg SL Q5M PRN 03/08/14 11/03/17 Multivitamin/Iron/Folic Acid 1 tab PO DAILY 05/28/14 11/03/17 [Centrum Complete Multivit Tab] Pantoprazole Sodium 40 mg PO DAILY 03/17/15 11/03/17 Atorvastatin Calcium [Lipitor] 40 mg PO DAILY 09/08/17 11/03/17 Sucralfate [Carafate] 1 gm PO ACHS 09/08/17 11/03/17 Aspirin EC [Ecotrin] 325 mg PO DAILY 09/10/17 11/03/17 Famotidine [Pepcid] 20 mg PO DAILY 11/03/17 11/03/17 Previous Rx's Medication Instructions Recorded Acetaminophen Tab [Tylenol] 650 mg PO Q6HR PRN tab 10/02/17 Levofloxacin [Levaquin] 750 mg PO DAILY #7 tab 11/03/17 Allergies Allergy/AdvReac Type Severity Reaction Status Date / Time cefepime Allergy Intermediate Rash/Hives Verified 11/03/17 18:45 Review of Systems ROS Statement: Those systems with pertinent positive or pertinent negative responses have been documented in the HPI. ROS Other: All systems not noted in ROS Statement are negative. Constitutional: Reports: fever. Denies: chills, weakness ENT: Denies: throat pain, congestion Respiratory: Denies: cough Cardiovascular: Denies: chest pain, palpitations, edema, syncope Gastrointestinal: Reports: constipation. Denies: abdominal pain, nausea, vomiting, diarrhea, melena, hematochezia Genitourinary: Denies: dysuria, hematuria Musculoskeletal: Denies: back pain Skin: Denies: rash Neurological: Denies: headache, weakness, numbness Past Medical History Past Medical History: Coronary Artery Disease (CAD), Cancer, GERD/Reflux, Hyperlipidemia, Hypertension, Osteoarthritis (OA), Renal Disease Additional Past Medical History / Comment(s): Pancreatic CA- recent dx pt recieved 2nd dose of chemo on 09/26/17, skin cancer with removal, nephrolithiasis with surgery, sinus problems at times, ulcerative colitis in the 1970s, back pain/sciatica, numbness/tingling L arm History of Any Multi-Drug Resistant Organisms: None Reported Past Surgical History: Cholecystectomy, Heart Catheterization With Stent, Tonsillectomy Additional Past Surgical History / Comment(s): PCI/stent x5, pilonidial cyst removed, hemohroidectomy, EGD/colonoscopy that nicked his bowel followed by open laparotomy done at [facility], cystoscopy/kidney stone removal, skin cancer removed from R side of neck, bilateral cataract removals, port placement Past Anesthesia/Blood Transfusion Reactions: No Reported Reaction Date of Last Stent Placement:: 2012 Past Psychological History: No Psychological Hx Reported Smoking Status: Former smoker - Past Family History Father Additional Family Medical History / Comment(s): Father at age 84 from old age with no major medical problems. Mother Additional Family Medical History / Comment(s): Mother from leukemia. Brother(s) Additional Family Medical History / Comment(s): She has a brother that from stomach cancer. Patient has 3 sisters with no major medical problems. Patient has 3 children with no major medical problems. General Exam Limitations: no limitations General appearance: alert, in no apparent distress Head exam: Present: atraumatic, normocephalic Eye exam: Present: normal appearance. Absent: scleral icterus, conjunctival injection ENT exam: Present: normal oropharynx, mucous membranes moist Neck exam: Present: normal inspection, full ROM. Absent: tenderness, meningismus Respiratory exam: Present: normal lung sounds bilaterally, other (There is a port in the right chest wall. There is no erythema.). Absent: respiratory distress, wheezes, rales, rhonchi, stridor Cardiovascular Exam: Present: normal rhythm, tachycardia (Rate approximately 14 bpm), normal heart sounds. Absent: systolic murmur, diastolic murmur, rubs, gallop GI/Abdominal exam: Present: soft. Absent: distended, tenderness, guarding, rebound, mass Extremities exam: Present: normal inspection, normal capillary refill. Absent: pedal edema, calf tenderness Back exam: Present: normal inspection. Absent: CVA tenderness (R), CVA tenderness (L) Neurological exam: Present: alert, oriented X3 Skin exam: Present: warm, dry, intact, normal color. Absent: rash Course Vital Signs 11/03/17 11/03/17 11/03/17 18:10 18:48 19:23 Temperature 101.1 F H 99.3 F Pulse Rate 102 H 98 Pulse Rate [ 114 H Left Pulse Oximetery] Respiratory 18 17 Rate Blood Pressure 85/50 97/45 O2 Sat by Pulse 95 100 Oximetry 11/03/17 11/03/17 11/03/17 20:58 21:50 22:49 Temperature 99.8 F H Pulse Rate 86 84 82 Pulse Rate [ Left Pulse Oximetery] Respiratory 16 18 18 Rate Blood Pressure 86/46 81/45 106/55 O2 Sat by Pulse 97 97 100 Oximetry 11/03/17 23:48 Temperature 97.6 F Pulse Rate 82 Pulse Rate [ Left Pulse Oximetery] Respiratory 15 Rate Blood Pressure 103/51 O2 Sat by Pulse 100 Oximetry - Reevaluation(s) Reevaluation #1: 11/03/17 23:53 Patient is reevaluated, and findings are discussed with the oncologist on-call. He requests that patient be given one week of levofloxacin, and to have close follow-up for the culture results. Also GoLYTELY discussed with the patient's constipation symptoms. The follow-up and return parameters discussed with patient and family. Medical Decision Making - Lab Data Result diagrams: 11/03/17 18:41 11/03/17 18:41 Lab Results 11/03/17 11/03/17 11/03/17 Range/Units 18:41 18:41 18:41 WBC 13.3 H (3.8-10.6) k/uL RBC 2.99 L (4.30-5.90) m/uL Hgb 9.4 L (13.0-17.5) gm/dL Hct 28.5 L (39.0-53.0) % MCV 95.4 (80.0-100.0) fL MCH 31.3 (25.0-35.0) pg MCHC 32.8 (31.0-37.0) g/dL RDW 17.5 H (11.5-15.5) % Plt Count 161 (150-450) k/uL Neutrophils % 94 % Lymphocytes % 4 % Monocytes % 1 % Eosinophils % 0 % Basophils % 0 % Neutrophils # 12.5 H (1.3-7.7) k/uL Lymphocytes # 0.5 L (1.0-4.8) k/uL Monocytes # 0.2 (0-1.0) k/uL Eosinophils # 0.1 (0-0.7) k/uL Basophils # 0.0 (0-0.2) k/uL Anisocytosis Slight Macrocytosis Slight PT (9.0-12.0) sec INR (<1.2) APTT (22.0-30.0) sec Sodium 133 L (137-145) mmol/L Potassium 4.7 (3.5-5.1) mmol/L Chloride 100 (98-107) mmol/L Carbon Dioxide 24 (22-30) mmol/L Anion Gap 9 mmol/L BUN 14 (9-20) mg/dL Creatinine 0.71 (0.66-1.25) mg/dL Est GFR (MDRD) Af Amer >60 (>60 ml/min/1.73 sqM) Est GFR (MDRD) Non-Af >60 (>60 ml/min/1.73 sqM) Glucose 162 H (74-99) mg/dL Lactic Ac Sepsis Rflx Plasma Lactic Acid Moisés 2.2 H* (0.7-2.0) mmol/L Calcium 8.5 (8.4-10.2) mg/dL Total Bilirubin 2.0 H (0.2-1.3) mg/dL AST 28 (17-59) U/L ALT 40 (21-72) U/L Alkaline Phosphatase 107 (38-126) U/L Troponin I (0.000-0.034) ng/mL Total Protein 5.4 L (6.3-8.2) g/dL Albumin 3.1 L (3.5-5.0) g/dL Urine Color Urine Appearance (Clear) Urine pH (5.0-8.0) Ur Specific [place] (1.001-1.035) Urine Protein (Negative) Urine Glucose (UA) (Negative) Urine Ketones (Negative) Urine Blood (Negative) Urine Nitrite (Negative) Urine Bilirubin (Negative) Urine Urobilinogen (<2.0) mg/dL Ur Leukocyte Esterase (Negative) Influenza Type A RNA (Not Detectd) Influenza Type B (PCR) (Not Detectd) 11/03/17 11/03/17 11/03/17 Range/Units 18:41 18:41 19:13 WBC (3.8-10.6) k/uL RBC (4.30-5.90) m/uL Hgb (13.0-17.5) gm/dL Hct (39.0-53.0) % MCV (80.0-100.0) fL MCH (25.0-35.0) pg MCHC (31.0-37.0) g/dL RDW (11.5-15.5) % Plt Count (150-450) k/uL Neutrophils % % Lymphocytes % % Monocytes % % Eosinophils % % Basophils % % Neutrophils # (1.3-7.7) k/uL Lymphocytes # (1.0-4.8) k/uL Monocytes # (0-1.0) k/uL Eosinophils # (0-0.7) k/uL Basophils # (0-0.2) k/uL Anisocytosis Macrocytosis PT 11.3 (9.0-12.0) sec INR 1.2 H (<1.2) APTT 26.8 (22.0-30.0) sec Sodium (137-145) mmol/L Potassium (3.5-5.1) mmol/L Chloride (98-107) mmol/L Carbon Dioxide (22-30) mmol/L Anion Gap mmol/L BUN (9-20) mg/dL Creatinine (0.66-1.25) mg/dL Est GFR (MDRD) Af Amer (>60 ml/min/1.73 sqM) Est GFR (MDRD) Non-Af (>60 ml/min/1.73 sqM) Glucose (74-99) mg/dL Lactic Ac Sepsis Rflx Y Plasma Lactic Acid Moisés (0.7-2.0) mmol/L Calcium (8.4-10.2) mg/dL Total Bilirubin (0.2-1.3) mg/dL AST (17-59) U/L ALT (21-72) U/L Alkaline Phosphatase (38-126) U/L Troponin I <0.012 (0.000-0.034) ng/mL Total Protein (6.3-8.2) g/dL Albumin (3.5-5.0) g/dL Urine Color Urine Appearance (Clear) Urine pH (5.0-8.0) Ur Specific [place] (1.001-1.035) Urine Protein (Negative) Urine Glucose (UA) (Negative) Urine Ketones (Negative) Urine Blood (Negative) Urine Nitrite (Negative) Urine Bilirubin (Negative) Urine Urobilinogen (<2.0) mg/dL Ur Leukocyte Esterase (Negative) Influenza Type A RNA (Not Detectd) Influenza Type B (PCR) (Not Detectd) 11/03/17 11/03/17 11/03/17 Range/Units 21:38 21:56 23:04 WBC (3.8-10.6) k/uL RBC (4.30-5.90) m/uL Hgb (13.0-17.5) gm/dL Hct (39.0-53.0) % MCV (80.0-100.0) fL MCH (25.0-35.0) pg MCHC (31.0-37.0) g/dL RDW (11.5-15.5) % Plt Count (150-450) k/uL Neutrophils % % Lymphocytes % % Monocytes % % Eosinophils % % Basophils % % Neutrophils # (1.3-7.7) k/uL Lymphocytes # (1.0-4.8) k/uL Monocytes # (0-1.0) k/uL Eosinophils # (0-0.7) k/uL Basophils # (0-0.2) k/uL Anisocytosis Macrocytosis PT (9.0-12.0) sec INR (<1.2) APTT (22.0-30.0) sec Sodium (137-145) mmol/L Potassium (3.5-5.1) mmol/L Chloride (98-107) mmol/L Carbon Dioxide (22-30) mmol/L Anion Gap mmol/L BUN (9-20) mg/dL Creatinine (0.66-1.25) mg/dL Est GFR (MDRD) Af Amer (>60 ml/min/1.73 sqM) Est GFR (MDRD) Non-Af (>60 ml/min/1.73 sqM) Glucose (74-99) mg/dL Lactic Ac Sepsis Rflx Plasma Lactic Acid Moisés 1.3 (0.7-2.0) mmol/L Calcium (8.4-10.2) mg/dL Total Bilirubin (0.2-1.3) mg/dL AST (17-59) U/L ALT (21-72) U/L Alkaline Phosphatase (38-126) U/L Troponin I (0.000-0.034) ng/mL Total Protein (6.3-8.2) g/dL Albumin (3.5-5.0) g/dL Urine Color Yellow Urine Appearance Clear (Clear) Urine pH 5.5 (5.0-8.0) Ur Specific [place] 1.009 (1.001-1.035) Urine Protein Negative (Negative) Urine Glucose (UA) Negative (Negative) Urine Ketones Negative (Negative) Urine Blood Negative (Negative) Urine Nitrite Negative (Negative) Urine Bilirubin Negative (Negative) Urine Urobilinogen <2.0 (<2.0) mg/dL Ur Leukocyte Esterase Negative (Negative) Influenza Type A RNA Not Detected (Not Detectd) Influenza Type B (PCR) Not Detected (Not Detectd) 11/03/17 Range/Units 23:15 WBC (3.8-10.6) k/uL RBC (4.30-5.90) m/uL Hgb (13.0-17.5) gm/dL Hct (39.0-53.0) % MCV (80.0-100.0) fL MCH (25.0-35.0) pg MCHC (31.0-37.0) g/dL RDW (11.5-15.5) % Plt Count (150-450) k/uL Neutrophils % % Lymphocytes % % Monocytes % % Eosinophils % % Basophils % % Neutrophils # (1.3-7.7) k/uL Lymphocytes # (1.0-4.8) k/uL Monocytes # (0-1.0) k/uL Eosinophils # (0-0.7) k/uL Basophils # (0-0.2) k/uL Anisocytosis Macrocytosis PT (9.0-12.0) sec INR (<1.2) APTT (22.0-30.0) sec Sodium (137-145) mmol/L Potassium (3.5-5.1) mmol/L Chloride (98-107) mmol/L Carbon Dioxide (22-30) mmol/L Anion Gap mmol/L BUN (9-20) mg/dL Creatinine (0.66-1.25) mg/dL Est GFR (MDRD) Af Amer (>60 ml/min/1.73 sqM) Est GFR (MDRD) Non-Af (>60 ml/min/1.73 sqM) Glucose (74-99) mg/dL Lactic Ac Sepsis Rflx Plasma Lactic Acid Moisés 1.4 (0.7-2.0) mmol/L Calcium (8.4-10.2) mg/dL Total Bilirubin (0.2-1.3) mg/dL AST (17-59) U/L ALT (21-72) U/L Alkaline Phosphatase (38-126) U/L Troponin I (0.000-0.034) ng/mL Total Protein (6.3-8.2) g/dL Albumin (3.5-5.0) g/dL Urine Color Urine Appearance (Clear) Urine pH (5.0-8.0) Ur Specific [place] (1.001-1.035) Urine Protein (Negative) Urine Glucose (UA) (Negative) Urine Ketones (Negative) Urine Blood (Negative) Urine Nitrite (Negative) Urine Bilirubin (Negative) Urine Urobilinogen (<2.0) mg/dL Ur Leukocyte Esterase (Negative) Influenza Type A RNA (Not Detectd) Influenza Type B (PCR) (Not Detectd) - EKG Data -: EKG Interpreted by Ia EKG shows normal: sinus rhythm, axis (Normal), intervals (The MS interval 152 ms and QRS duration 96 ms, both normal and QT C is 490 ms prolonged period), QRS complexes (Normal) Rate: normal (Rate proximal 100 bpm) Disposition Clinical Impression: Fever, Dehydration Disposition: HOME SELF-CARE Condition: Fair Instructions: Fever in Adults (ED) Prescriptions: Levofloxacin [Levaquin] 750 mg PO DAILY #7 tab Referrals: Leodan Tadeo MD [Primary Care Provider] - 1-2 days
[2017-11-03] MEDS ORDERED: PIPERACILLIN-TAZOBACTAM 3.375 GM in DEXTROSE/WATER 1 50ML.BAG IVPB STA (19:54)
[2017-11-03] MEDS ORDERED: HYDROcodone/APAP 5-325MG 1 EACH TAB PO STA (19:58)
[2017-11-03] MEDS ORDERED: SODIUM CHLORIDE 0.9% 2,000 ML IV ONE (21:36)
[2017-11-03 21:46] LABS: Appearance,Urine Clear (Clear); Bilirubin,Urine Negative (Negative); Blood,Urine Negative (Negative); Color,Urine Yellow; Glucose,Urine (UA) Negative (Negative); Ketones,Urine Negative (Negative); Leukocyte Esterase,Urine Negative (Negative); Nitrite,Urine Negative (Negative); PH, Urine 5.5 (5.0-8.0); Protein,Urine Negative (Negative); Specific Gravity,Urine 1.009 (1.001-1.035); Urobilinogen,Urine <2.0 mg/dL (<2.0)
[2017-11-03 22:50] VITALS: PULSE 82
[2017-11-03] MEDS ORDERED: LEVOFLOXACIN 750 MG TAB PO STA (23:02)
[2017-11-03] MEDS ORDERED: PEG 3350-NA SULF,BICARB,CL/KCL 4,000 ML BOTTLE PO ONE (23:02)
[2017-11-03 23:49] VITALS: BP 103/51; RESP 15; TEMP 97.6
== END 2017-11-04 00:01 | disposition home or self-care (01) ==
LOC: EC 18:08
DX: E86.0 Dehydration (principal); R50.9 Fever, unspecified; I25.10 Atherosclerotic heart disease of native coronary artery without angina pectoris; K21.9 Gastro-esophageal reflux disease without esophagitis; E78.5 Hyperlipidemia, unspecified; I10 Essential (primary) hypertension; Z85.07 Personal history of malignant neoplasm of pancreas; Z85.828 Personal history of other malignant neoplasm of skin; Z95.5 Presence of coronary angioplasty implant and graft; Z87.891 Personal history of nicotine dependence; Z79.82 Long term (current) use of aspirin; Z79.899 Other long term (current) drug therapy; Z88.1 Allergy status to other antibiotic agents
CPT/HCPCS: 36415; 93005; 80053; 83605; 84484; 85025; 85610; 85730; 81003; 87040; 87086; 87502; 71045; 99285; 96365; 96366 ×3; J2543

== ENCOUNTER 2017-11-11 17:27 | Emergency (ER) | payer MEDICARE ==
--- NOTE | 2017-11-11 18:21 | ED ---
General Adult HPI - General Chief complaint: Recheck/Abnormal Lab/Rx Stated complaint: sent by dr grullon for infusion Time Seen by Provider: 11/11/17 17:57 Source: patient, RN notes reviewed, old records reviewed Mode of arrival: ambulatory Limitations: no limitations - History of Present Illness Initial comments: 77-year-old male history of pancreatic cancer currently on chemotherapy presents for evaluation of generalized fatigue and shortness of breath. Patient states he symptoms have been present for the past day. He had outpatient laboratory studies drawn today and was informed by his oncologist that his hemoglobin was low. Denies any bleeding. Denies dysuria or hematuria , denies rectal bleeding or melena. Denies chest pain. Does have some exertional dyspnea. No cough. No fever. No abdominal pain. Patient is not currently on any anticoagulation. Last chemotherapy was 3 days ago. - Related Data Home Medications Medication Instructions Recorded Confirmed Isosorbide Mononitrate ER [Imdur] 30 mg PO DAILY 02/24/14 11/11/17 Atenolol 25 mg PO DAILY 03/08/14 11/11/17 Lisinopril 5 mg PO DAILY 03/08/14 11/11/17 Nitroglycerin Sl Tabs [Nitrostat] 0.4 mg SL Q5M PRN 03/08/14 11/11/17 Multivitamin/Iron/Folic Acid 1 tab PO DAILY 05/28/14 11/11/17 [Centrum Complete Multivit Tab] Pantoprazole Sodium 40 mg PO DAILY 03/17/15 11/11/17 Atorvastatin Calcium [Lipitor] 40 mg PO DAILY 09/08/17 11/11/17 Sucralfate [Carafate] 1 gm PO ACHS 09/08/17 11/11/17 Aspirin EC [Ecotrin] 325 mg PO DAILY 09/10/17 11/11/17 Famotidine [Pepcid] 20 mg PO DAILY 11/03/17 11/11/17 Acetaminophen Tab [Tylenol] 325 mg PO Q6HR PRN 11/11/17 11/11/17 Allergies Allergy/AdvReac Type Severity Reaction Status Date / Time cefepime Allergy Intermediate Rash/Hives Verified 11/11/17 20:24 Review of Systems ROS Statement: Those systems with pertinent positive or pertinent negative responses have been documented in the HPI. ROS Other: All systems not noted in ROS Statement are negative. Past Medical History Past Medical History: Coronary Artery Disease (CAD), Cancer, GERD/Reflux, Hyperlipidemia, Hypertension, Osteoarthritis (OA), Renal Disease Additional Past Medical History / Comment(s): Pancreatic CA- recent dx pt recieved 2nd dose of chemo on 09/26/17, skin cancer with removal, nephrolithiasis with surgery, sinus problems at times, ulcerative colitis in the 1970s, back pain/sciatica, numbness/tingling L arm History of Any Multi-Drug Resistant Organisms: None Reported Past Surgical History: Cholecystectomy, Heart Catheterization With Stent, Tonsillectomy Additional Past Surgical History / Comment(s): PCI/stent x5, pilonidial cyst removed, hemohroidectomy, EGD/colonoscopy that nicked his bowel followed by open laparotomy done at [facility], cystoscopy/kidney stone removal, skin cancer removed from R side of neck, bilateral cataract removals, port placement Past Anesthesia/Blood Transfusion Reactions: No Reported Reaction Date of Last Stent Placement:: 2012 Past Psychological History: No Psychological Hx Reported Smoking Status: Former smoker Past Alcohol Use History: None Reported Past Drug Use History: None Reported - Past Family History Father Additional Family Medical History / Comment(s): Father at age 84 from old age with no major medical problems. Mother Additional Family Medical History / Comment(s): Mother from leukemia. Brother(s) Additional Family Medical History / Comment(s): She has a brother that from stomach cancer. Patient has 3 sisters with no major medical problems. Patient has 3 children with no major medical problems. General Exam Limitations: no limitations General appearance: alert, in no apparent distress Head exam: Present: atraumatic, normocephalic Eye exam: Present: normal appearance ENT exam: Present: normal exam Neck exam: Present: normal inspection. Absent: tenderness, meningismus Respiratory exam: Present: normal lung sounds bilaterally. Absent: respiratory distress Cardiovascular Exam: Present: regular rate, normal rhythm GI/Abdominal exam: Present: soft. Absent: distended, tenderness Extremities exam: Present: pedal edema (Worse on the left) Neurological exam: Present: alert, oriented X3, CN II-XII intact. Absent: motor sensory deficit Psychiatric exam: Present: normal affect, normal mood Skin exam: Present: warm, dry, intact. Absent: cyanosis, diaphoretic Course Vital Signs 11/11/17 11/11/17 11/11/17 17:52 20:52 21:02 Temperature 98.9 F 99.1 F 99.0 F Pulse Rate 96 87 89 Respiratory 24 18 18 Rate Blood Pressure 88/47 99/54 92/54 O2 Sat by Pulse 100 100 Oximetry 11/11/17 21:32 Temperature 98.5 F Pulse Rate 88 Respiratory 18 Rate Blood Pressure 106/56 O2 Sat by Pulse Oximetry Medical Decision Making - Medical Decision Making Patient sent in by chronograph operator for blood transfusion. Patient's hemoglobin is 6.7 on outpatient laboratory testing. Patient is currently on chemotherapy for pancreatic cancer. Patient did have some swelling in the left lower extremity, ultrasound was obtained this was negative for DVT. White blood cell count 9.0 which is predominantly neutrophils. Hemoglobin on repeat testing is 7.8, however patient does still received 1 unit of blood transfusion, platelets are normal. Left retinal. Albumin is low at 2.3, creatinine normal. Patient does not want to be admitted to the hospital. He will be discharged home with outpatient follow-up. He has good family support and will return with any worsening symptoms. - Lab Data Result diagrams: 11/11/17 18:47 11/11/17 18:47 Lab Results 11/11/17 11/11/17 11/11/17 Range/Units 18:45 18:47 18:47 WBC 9.0 (3.8-10.6) k/uL RBC 2.45 L (4.30-5.90) m/uL Hgb 7.8 L (13.0-17.5) gm/dL Hct 23.9 L (39.0-53.0) % MCV 97.3 (80.0-100.0) fL MCH 31.6 (25.0-35.0) pg MCHC 32.5 (31.0-37.0) g/dL RDW 17.7 H (11.5-15.5) % Plt Count 166 (150-450) k/uL Neutrophils % 93 % Lymphocytes % 5 % Monocytes % 1 % Eosinophils % 1 % Basophils % 1 % Neutrophils # 8.4 H (1.3-7.7) k/uL Lymphocytes # 0.4 L (1.0-4.8) k/uL Monocytes # 0.1 (0-1.0) k/uL Eosinophils # 0.1 (0-0.7) k/uL Basophils # 0.1 (0-0.2) k/uL Manual Slide Review Performed Toxic Granulation Present Poikilocytosis (manual Present Anisocytosis Slight Macrocytosis Slight PT (9.0-12.0) sec INR (<1.2) APTT (22.0-30.0) sec Sodium 133 L (137-145) mmol/L Potassium 3.9 (3.5-5.1) mmol/L Chloride 101 (98-107) mmol/L Carbon Dioxide 22 (22-30) mmol/L Anion Gap 10 mmol/L BUN 16 (9-20) mg/dL Creatinine 0.80 (0.66-1.25) mg/dL Est GFR (MDRD) Af Amer >60 (>60 ml/min/1.73 sqM) Est GFR (MDRD) Non-Af >60 (>60 ml/min/1.73 sqM) Glucose 127 H (74-99) mg/dL Calcium 8.4 (8.4-10.2) mg/dL Total Bilirubin 0.9 (0.2-1.3) mg/dL AST 54 (17-59) U/L ALT 51 (21-72) U/L Alkaline Phosphatase 85 (38-126) U/L Total Protein 4.5 L (6.3-8.2) g/dL Albumin 2.3 L (3.5-5.0) g/dL Blood Type A Negative Blood Type Confirm Blood Type Recheck CABO Indicated Antibody Screen NEGATIVE Crossmatch See Detail Spec Expiration Date 11/14/2017 - 234411/11/17 11/11/17 Range/Units 18:47 19:29 WBC (3.8-10.6) k/uL RBC (4.30-5.90) m/uL Hgb (13.0-17.5) gm/dL Hct (39.0-53.0) % MCV (80.0-100.0) fL MCH (25.0-35.0) pg MCHC (31.0-37.0) g/dL RDW (11.5-15.5) % Plt Count (150-450) k/uL Neutrophils % % Lymphocytes % % Monocytes % % Eosinophils % % Basophils % % Neutrophils # (1.3-7.7) k/uL Lymphocytes # (1.0-4.8) k/uL Monocytes # (0-1.0) k/uL Eosinophils # (0-0.7) k/uL Basophils # (0-0.2) k/uL Manual Slide Review Toxic Granulation Poikilocytosis (manual Anisocytosis Macrocytosis PT 12.3 H (9.0-12.0) sec INR 1.3 H (<1.2) APTT 33.3 H (22.0-30.0) sec Sodium (137-145) mmol/L Potassium (3.5-5.1) mmol/L Chloride (98-107) mmol/L Carbon Dioxide (22-30) mmol/L Anion Gap mmol/L BUN (9-20) mg/dL Creatinine (0.66-1.25) mg/dL Est GFR (MDRD) Af Amer (>60 ml/min/1.73 sqM) Est GFR (MDRD) Non-Af (>60 ml/min/1.73 sqM) Glucose (74-99) mg/dL Calcium (8.4-10.2) mg/dL Total Bilirubin (0.2-1.3) mg/dL AST (17-59) U/L ALT (21-72) U/L Alkaline Phosphatase (38-126) U/L Total Protein (6.3-8.2) g/dL Albumin (3.5-5.0) g/dL Blood Type Blood Type Confirm A Negative Blood Type Recheck Antibody Screen Crossmatch Spec Expiration Date Disposition Clinical Impression: Pancreatic cancer, Anemia Disposition: HOME SELF-CARE Condition: Fair Referrals: Leodan Tadeo MD [Primary Care Provider] - 1-2 days Decision to Admit Reason: Admit from EC Decision Date: 11/11/17 Decision Time: 23:22
[2017-11-11 18:58] LABS: Anisocytosis Slight; Basophils # (A) 0.1 k/uL (0-0.2); Basophils % (A) 1 %; Eosinophils # (A) 0.1 k/uL (0-0.7); Eosinophils % (A) 1 %; HCT 23.9 % (39.0-53.0); HGB 7.8 gm/dL (13.0-17.5); Lymphocytes # (A) 0.4 k/uL (1.0-4.8); Lymphocytes % (A) 5 %; MCH 31.6 pg (25.0-35.0); MCHC 32.5 g/dL (31.0-37.0); MCV 97.3 fL (80.0-100.0); Macrocytosis Slight; Mean Platelet Volume 8.3; Monocytes # (A) 0.1 k/uL (0-1.0); Monocytes % (A) 1 %; Neutrophils # (A) 8.4 k/uL (1.3-7.7); Neutrophils % (A) 93 %; Platelet Count 166 k/uL (150-450); RBC 2.45 m/uL (4.30-5.90); RDW 17.7 % (11.5-15.5)
[2017-11-11 19:12] LABS: INR 1.3 (<1.2); Partial Thromboplastin Time 33.3 sec (22.0-30.0); Prothrombin Time 12.3 sec (9.0-12.0)
[2017-11-11 19:17] LABS: ALT 51 U/L (21-72); AST 54 U/L (17-59); Albumin 2.3 g/dL (3.5-5.0); Alkaline Phosphatase 85 U/L (38-126); Anion Gap 10 mmol/L; Blood Urea Nitrogen 16 mg/dL (9-20); Calcium 8.4 mg/dL (8.4-10.2); Carbon Dioxide 22 mmol/L (22-30); Chloride 101 mmol/L (98-107); Glucose 127 mg/dL (74-99); Potassium 3.9 mmol/L (3.5-5.1); Sodium 133 mmol/L (137-145); Total Bilirubin 0.9 mg/dL (0.2-1.3); Total Protein 4.5 g/dL (6.3-8.2)
--- NOTE | 2017-11-11 19:31 | US ---
EXAMINATION TYPE: US venous doppler duplex LE LT DATE OF EXAM: 11/11/2017 7:20 PM COMPARISON: NONE CLINICAL HISTORY: SWELLING. no h/o dvt, chemo pt SIDE PERFORMED: Left TECHNIQUE: The lower extremity deep venous system is examined utilizing real time linear array sonog laila with graded compression, doppler sonography and color-flow sonography. VESSELS IMAGED: External Iliac Vein (EIV) Common Femoral Vein Deep Femoral Vein Greater Saphenous Vein * Femoral Vein Popliteal Vein Small Saphenous Vein * Proximal Calf Veins (* superficial vessels) Left Leg: Appears negative for DVT IMPRESSION: Negative exam. No evidence of deep venous thrombosis in the left leg.
[2017-11-11 19:32] LABS: Poikilocytosis (M) Present; Toxic Granulation Present
[2017-11-11] MEDS ORDERED: ACETAMINOPHEN TAB 500 MG TAB PO STA (21:20)
[2017-11-11 23:24] VITALS: TEMP 97.9
[2017-11-11 23:28] VITALS: BP 96/51; PULSE 85; RESP 20
== END 2017-11-11 23:35 | disposition home or self-care (01) ==
LOC: EC 17:27
DX: C25.9 Malignant neoplasm of pancreas, unspecified (principal); D64.9 Anemia, unspecified; R53.83 Other fatigue; R06.02 Shortness of breath; I25.10 Atherosclerotic heart disease of native coronary artery without angina pectoris; K21.9 Gastro-esophageal reflux disease without esophagitis; E78.5 Hyperlipidemia, unspecified; I10 Essential (primary) hypertension; M19.90 Unspecified osteoarthritis, unspecified site; Z85.828 Personal history of other malignant neoplasm of skin; Z87.891 Personal history of nicotine dependence; Z79.82 Long term (current) use of aspirin; Z79.899 Other long term (current) drug therapy; Z88.1 Allergy status to other antibiotic agents
CPT/HCPCS: 36415; 86900; 86901; 80053; 85025; 85610; 85730; 86850; 86920; 93971; 99284; 96374; P9016; J1642

== ENCOUNTER 2017-12-02 14:36 | Inpatient (IN) | payer MEDICARE ==
[2017-12-02] MEDS ORDERED: PANTOPRAZOLE 40 MG/10 ML VIAL IVP STA (15:53)
--- NOTE | 2017-12-02 15:57 | ED ---
General Adult HPI - General Chief complaint: Weakness Stated complaint: Anemic Time Seen by Provider: 12/02/17 15:35 Source: patient, family, RN notes reviewed Mode of arrival: wheelchair Limitations: no limitations - History of Present Illness Initial comments: Patient is a pleasant 77-year-old male presenting to the emergency department with complaints of fatigue and exertional dyspnea. Patient did have hemoglobin checked a couple of days ago and was 9. Patient had hemoglobin checked today from home and was reported as 5. Patient is fatigued. Patient did have similar symptoms a few weeks ago. Patient states he had one episode of bowel movement with tiny amount of blood. No black stools. Patient does have a history of pancreatic cancer and is currently on chemotherapy for this. - Related Data Home Medications Medication Instructions Recorded Confirmed Isosorbide Mononitrate ER [Imdur] 30 mg PO BID 02/24/14 12/02/17 Atenolol 25 mg PO DAILY 03/08/14 12/02/17 Lisinopril 5 mg PO DAILY 03/08/14 12/02/17 Nitroglycerin Sl Tabs [Nitrostat] 0.4 mg SL Q5M PRN 03/08/14 12/02/17 Multivitamin/Iron/Folic Acid 1 tab PO DAILY 05/28/14 12/02/17 [Centrum Complete Multivit Tab] Atorvastatin Calcium [Lipitor] 40 mg PO DAILY 09/08/17 12/02/17 Aspirin EC [Ecotrin] 325 mg PO DAILY 09/10/17 12/02/17 Famotidine [Pepcid] 20 mg PO DAILY 11/03/17 12/02/17 Allergies Allergy/AdvReac Type Severity Reaction Status Date / Time cefepime Allergy Intermediate Rash/Hives Verified 12/02/17 15:59 Review of Systems ROS Statement: Those systems with pertinent positive or pertinent negative responses have been documented in the HPI. ROS Other: All systems not noted in ROS Statement are negative. Constitutional: Denies: fever Eyes: Denies: eye pain ENT: Denies: ear pain Respiratory: Denies: cough Cardiovascular: Denies: chest pain Endocrine: Reports: fatigue Gastrointestinal: Denies: vomiting, hematemesis, melena Genitourinary: Denies: dysuria Musculoskeletal: Denies: back pain Skin: Denies: rash Neurological: Denies: headache Past Medical History Past Medical History: Coronary Artery Disease (CAD), Cancer, GERD/Reflux, Hyperlipidemia, Hypertension, Osteoarthritis (OA), Renal Disease Additional Past Medical History / Comment(s): Pancreatic CA- recent dx pt recieved 2nd dose of chemo on 09/26/17, skin cancer with removal, nephrolithiasis with surgery, sinus problems at times, ulcerative colitis in the 1970s, back pain/sciatica, numbness/tingling L arm History of Any Multi-Drug Resistant Organisms: None Reported Past Surgical History: Cholecystectomy, Heart Catheterization With Stent, Tonsillectomy Additional Past Surgical History / Comment(s): PCI/stent x5, pilonidial cyst removed, hemohroidectomy, EGD/colonoscopy that nicked his bowel followed by open laparotomy done at [facility], cystoscopy/kidney stone removal, skin cancer removed from R side of neck, bilateral cataract removals, port placement Past Anesthesia/Blood Transfusion Reactions: No Reported Reaction Date of Last Stent Placement:: 2012 Past Psychological History: No Psychological Hx Reported Smoking Status: Former smoker Past Alcohol Use History: None Reported Past Drug Use History: None Reported - Past Family History Father Additional Family Medical History / Comment(s): Father at age 84 from old age with no major medical problems. Mother Additional Family Medical History / Comment(s): Mother from leukemia. Brother(s) Additional Family Medical History / Comment(s): She has a brother that from stomach cancer. Patient has 3 sisters with no major medical problems. Patient has 3 children with no major medical problems. General Exam Limitations: no limitations General appearance: alert, in no apparent distress Head exam: Present: atraumatic Eye exam: Present: normal appearance, PERRL ENT exam: Present: normal oropharynx Neck exam: Present: normal inspection Respiratory exam: Present: normal lung sounds bilaterally Cardiovascular Exam: Present: regular rate, normal rhythm GI/Abdominal exam: Present: soft. Absent: distended, tenderness Rectal exam: Present: normal inspection. Absent: black stool, bloody stool Extremities exam: Present: normal inspection Neurological exam: Present: alert Psychiatric exam: Present: normal affect, normal mood Skin exam: Present: normal color Course Vital Signs 12/02/17 12/02/17 14:53 16:06 Temperature 98.3 F Pulse Rate 86 59 L Respiratory 16 16 Rate Blood Pressure 83/47 122/84 O2 Sat by Pulse 100 100 Oximetry - Reevaluation(s) Reevaluation #1: 12/02/17 16:28 Blood bank was called and transfusion will be held at this time. Repeat hemoglobin will be ordered later today. Medical Decision Making - Medical Decision Making Patient reevaluated and updated. Case was discussed with Dr. Sheppard who would like patient admitted. He did request TIBC, ferritin and reticulocyte count. He did want to units given and consult for Dr. Lomas. He was concern for GI bleed secondary to rapid hemoglobin change of 10 on the 6th to 5.4 today. Case was then discussed with Dr. Tadeo who will admit his patient. He does recommend ICU admission. Hemoglobin came back at 8.3 today. Case was discussed with Dr. Coreas who did not feel patient needed to be admitted to the ICU at this time. - Lab Data Result diagrams: 12/02/17 16:05 Lab Results 12/02/17 12/02/17 12/02/17 Range/Units 16:05 16:05 16:05 WBC 6.9 (3.8-10.6) k/uL RBC 2.55 L (4.30-5.90) m/uL Hgb 8.3 L D (13.0-17.5) gm/dL Hct 25.6 L (39.0-53.0) % MCV 100.3 H (80.0-100.0) fL MCH 32.4 (25.0-35.0) pg MCHC 32.3 (31.0-37.0) g/dL RDW 19.2 H (11.5-15.5) % Plt Count 158 D (150-450) k/uL Neutrophils % 86 % Lymphocytes % 10 % Monocytes % 1 % Eosinophils % 2 % Basophils % 0 % Neutrophils # 6.0 (1.3-7.7) k/uL Lymphocytes # 0.7 L (1.0-4.8) k/uL Monocytes # 0.1 (0-1.0) k/uL Eosinophils # 0.1 (0-0.7) k/uL Basophils # 0.0 (0-0.2) k/uL Anisocytosis Slight Macrocytosis Moderate Retic Count 0.8 (0.5-2.0) % Stool Occult Blood Positive (Negative) Disposition Clinical Impression: Anemia, GI bleeding Disposition: ADMITTED IP TO THIS [facility] Condition: Stable Referrals: Leodan Tadeo MD [Primary Care Provider] - 1-2 days Decision Time: 16:28
[2017-12-02 16:16] LABS: Anisocytosis Slight; Basophils % (A) 0 %; Eosinophils # (A) 0.1 k/uL (0-0.7); Eosinophils % (A) 2 %; HCT 25.6 % (39.0-53.0); Lymphocytes # (A) 0.7 k/uL (1.0-4.8); Lymphocytes % (A) 10 %; MCH 32.4 pg (25.0-35.0); MCHC 32.3 g/dL (31.0-37.0); MCV 100.3 fL (80.0-100.0); Macrocytosis Moderate; Mean Platelet Volume 7.3; Monocytes # (A) 0.1 k/uL (0-1.0); Monocytes % (A) 1 %; Neutrophils % (A) 86 %; RBC 2.55 m/uL (4.30-5.90); RDW 19.2 % (11.5-15.5); WBC 6.9 k/uL (3.8-10.6)
[2017-12-02 16:19] LABS: HGB 8.3 gm/dL (13.0-17.5); Platelet Count 158 k/uL (150-450)
[2017-12-02 16:24] LABS: Reticulocyte % 0.8 % (0.5-2.0)
[2017-12-02] MEDS ORDERED: NALOXONE 0.4 MG/ML 1 ML VIAL IV PRN (16:31)
[2017-12-02 16:32] LABS: ALT 37 U/L (21-72); AST 46 U/L (17-59); Albumin 2.6 g/dL (3.5-5.0); Alkaline Phosphatase 80 U/L (38-126); Anion Gap 7 mmol/L; Blood Urea Nitrogen 22 mg/dL (9-20); Calcium 8.8 mg/dL (8.4-10.2); Carbon Dioxide 26 mmol/L (22-30); Chloride 102 mmol/L (98-107); Glucose 145 mg/dL (74-99); Potassium 4.2 mmol/L (3.5-5.1); Sodium 135 mmol/L (137-145); Total Protein 4.9 g/dL (6.3-8.2)
[2017-12-02 16:43] LABS: INR 1.2 (<1.2); Prothrombin Time 11.6 sec (9.0-12.0)
[2017-12-02] MEDS ORDERED: SODIUM CHLORIDE 0.9% 1,000 ML IV SCH (16:45)
[2017-12-02 20:42] LABS: Anisocytosis Slight; Basophils % (A) 0 %; Eosinophils # (A) 0.1 k/uL (0-0.7); Eosinophils % (A) 2 %; HCT 26.6 % (39.0-53.0); HGB 8.4 gm/dL (13.0-17.5); Lymphocytes # (A) 0.7 k/uL (1.0-4.8); Lymphocytes % (A) 14 %; MCH 32.1 pg (25.0-35.0); MCHC 31.5 g/dL (31.0-37.0); MCV 101.8 fL (80.0-100.0); Macrocytosis Moderate; Mean Platelet Volume 7.6; Monocytes # (A) 0.1 k/uL (0-1.0); Monocytes % (A) 2 %; Neutrophils # (A) 4.3 k/uL (1.3-7.7); Neutrophils % (A) 82 %; Platelet Count 155 k/uL (150-450); RBC 2.61 m/uL (4.30-5.90); WBC 5.2 k/uL (3.8-10.6)
[2017-12-03 01:00] LABS: Iron Saturation 73.93 (15.00-50.00)
[2017-12-03 07:35] LABS: Anisocytosis Slight; Basophils % (A) 0 %; Eosinophils % (A) 1 %; HCT 25.7 % (39.0-53.0); HGB 7.8 gm/dL (13.0-17.5); Hypochromasia Slight; Lymphocytes # (A) 0.3 k/uL (1.0-4.8); Lymphocytes % (A) 6 %; MCH 31.4 pg (25.0-35.0); MCHC 30.3 g/dL (31.0-37.0); MCV 103.7 fL (80.0-100.0); Macrocytosis Marked; Mean Platelet Volume 7.3; Monocytes # (A) 0.1 k/uL (0-1.0); Monocytes % (A) 1 %; Neutrophils # (A) 4.6 k/uL (1.3-7.7); Neutrophils % (A) 91 %; Platelet Count 136 k/uL (150-450); RBC 2.48 m/uL (4.30-5.90); RDW 18.7 % (11.5-15.5); WBC 5.1 k/uL (3.8-10.6)
[2017-12-03 08:13] VITALS: BP 126/58; PULSE 99; RESP 18; TEMP 97.4
[2017-12-03] MEDS ORDERED: PANTOPRAZOLE 40 MG/10 ML VIAL IV SCH (09:00)
--- NOTE | 2017-12-03 09:44 | P.GSCN ---
History of Present Illness Consult date: 12/03/17 Reason for Consult: Anemia History of present illness: This 77-year-old male who's [facility] with anemia. She denies any significant GI bleed. The patient has a known history of pancreatic cancer. He denies a significant abdominal pain. Past Medical History Past Medical History: Coronary Artery Disease (CAD), Cancer, GERD/Reflux, Hyperlipidemia, Hypertension, Osteoarthritis (OA), Renal Disease Additional Past Medical History / Comment(s): Pancreatic CA- recent dx pt recieved chemo 18 has had 9 tx so far. skin cancer with removal, nephrolithiasis with surgery, sinus problems at times, ulcerative colitis in the 1970s, back pain/sciatica, past numbness/tingling L arm-pt stated was d/t chemo, uti, History of Any Multi-Drug Resistant Organisms: None Reported Past Surgical History: Cholecystectomy, Heart Catheterization With Stent, Tonsillectomy Additional Past Surgical History / Comment(s): PCI/stent x5, pilonidial cyst removed, hemohroidectomy, EGD/colonoscopy that nicked his bowel followed by open laparotomy done at [facility], cystoscopy/kidney stone removal, skin cancer removed from R side of neck, bilateral cataract removals, port placement rt upper chest Past Anesthesia/Blood Transfusion Reactions: No Reported Reaction Date of Last Stent Placement:: 2012 Smoking Status: Former smoker - Past Family History Father Additional Family Medical History / Comment(s): Father at age 84 from old age with no major medical problems. Mother Additional Family Medical History / Comment(s): Mother from leukemia. Brother(s) Additional Family Medical History / Comment(s): She has a brother that from stomach cancer. Patient has 3 sisters with no major medical problems. Patient has 3 children with no major medical problems. Medications and Allergies Home Medications Medication Instructions Recorded Confirmed Type Isosorbide Mononitrate ER [Imdur] 30 mg PO BID 02/24/14 12/02/17 History Atenolol 25 mg PO DAILY 03/08/14 12/02/17 History Lisinopril 5 mg PO DAILY 03/08/14 12/02/17 History Nitroglycerin Sl Tabs [Nitrostat] 0.4 mg SL Q5M PRN 03/08/14 12/02/17 History Multivitamin/Iron/Folic Acid 1 tab PO DAILY 05/28/14 12/02/17 History [Centrum Complete Multivit Tab] Atorvastatin Calcium [Lipitor] 40 mg PO DAILY 09/08/17 12/02/17 History Aspirin EC [Ecotrin] 325 mg PO DAILY 09/10/17 12/02/17 History Famotidine [Pepcid] 20 mg PO DAILY 11/03/17 12/02/17 History Allergies Allergy/AdvReac Type Severity Reaction Status Date / Time cefepime Allergy Intermediate Rash/Hives Verified 12/02/17 15:59 Surgical - Exam Vital Signs Temp Pulse Resp BP Pulse Ox 98.3 F 86 16 83/47 100 12/02/17 14:53 12/02/17 14:53 12/02/17 14:53 12/02/17 14:53 12/02/17 14:53 - General well developed, no distress - Eyes PERRL - ENT normal pinna - Neck no masses, no bruits - Respiratory normal expansion - Cardiovascular Rhythm: regular - Abdomen Abdomen: soft, non tender Results - Labs 12/03/17 07:11 12/02/17 16:05 Abnormal Lab Results - Last 24 Hours (Table) 12/02/17 12/02/17 12/02/17 Range/Units 16:05 16:05 16:05 RBC 2.55 L (4.30-5.90) m/uL Hgb 8.3 L D (13.0-17.5) gm/dL Hct 25.6 L (39.0-53.0) % MCV 100.3 H (80.0-100.0) fL MCHC (31.0-37.0) g/dL RDW 19.2 H (11.5-15.5) % Plt Count (150-450) k/uL Lymphocytes # 0.7 L (1.0-4.8) k/uL INR 1.2 H (<1.2) APTT 34.0 H (22.0-30.0) sec Sodium 135 L (137-145) mmol/L BUN 22 H (9-20) mg/dL Glucose 145 H (74-99) mg/dL Total Protein 4.9 L (6.3-8.2) g/dL Albumin 2.6 L (3.5-5.0) g/dL Crossmatch 12/02/17 12/02/17 12/03/17 Range/Units 16:05 20:29 07:11 RBC 2.61 L 2.48 L (4.30-5.90) m/uL Hgb 8.4 L 7.8 L (13.0-17.5) gm/dL Hct 26.6 L 25.7 L (39.0-53.0) % MCV 101.8 H 103.7 H (80.0-100.0) fL MCHC 30.3 L (31.0-37.0) g/dL RDW 19.0 H 18.7 H (11.5-15.5) % Plt Count 136 L (150-450) k/uL Lymphocytes # 0.7 L (1.0-4.8) k/uL INR (<1.2) APTT (22.0-30.0) sec Sodium (137-145) mmol/L BUN (9-20) mg/dL Glucose (74-99) mg/dL Total Protein (6.3-8.2) g/dL Albumin (3.5-5.0) g/dL Crossmatch See Detail Diabetes panel 12/02/17 Range/Units 16:05 Sodium 135 L (137-145) mmol/L Potassium 4.2 (3.5-5.1) mmol/L Chloride 102 (98-107) mmol/L Carbon Dioxide 26 (22-30) mmol/L BUN 22 H (9-20) mg/dL Creatinine 0.73 (0.66-1.25) mg/dL Glucose 145 H (74-99) mg/dL Calcium 8.8 (8.4-10.2) mg/dL AST 46 (17-59) U/L ALT 37 (21-72) U/L Alkaline Phosphatase 80 (38-126) U/L Total Protein 4.9 L (6.3-8.2) g/dL Albumin 2.6 L (3.5-5.0) g/dL Calcium panel 12/02/17 Range/Units 16:05 Calcium 8.8 (8.4-10.2) mg/dL Albumin 2.6 L (3.5-5.0) g/dL Pituitary panel 02/09/18 Range/Units 16:05 Sodium 135 L (137-145) mmol/L Potassium 4.2 (3.5-5.1) mmol/L Chloride 102 (98-107) mmol/L Carbon Dioxide 26 (22-30) mmol/L BUN 22 H (9-20) mg/dL Creatinine 0.73 (0.66-1.25) mg/dL Glucose 145 H (74-99) mg/dL Calcium 8.8 (8.4-10.2) mg/dL Adrenal panel 12/02/17 Range/Units 16:05 Sodium 135 L (137-145) mmol/L Potassium 4.2 (3.5-5.1) mmol/L Chloride 102 (98-107) mmol/L Carbon Dioxide 26 (22-30) mmol/L BUN 22 H (9-20) mg/dL Creatinine 0.73 (0.66-1.25) mg/dL Glucose 145 H (74-99) mg/dL Calcium 8.8 (8.4-10.2) mg/dL Total Bilirubin 1.0 (0.2-1.3) mg/dL AST 46 (17-59) U/L ALT 37 (21-72) U/L Alkaline Phosphatase 80 (38-126) U/L Total Protein 4.9 L (6.3-8.2) g/dL Albumin 2.6 L (3.5-5.0) g/dL Assessment and Plan Assessment: Anemia most likely from cardiac disease. No evidence of GI bleed. Patient was discharged home per medicine.
--- NOTE | 2017-12-03 10:30 | P.PN ---
Progress Note - Text Progress Note Date: 12/03/17 Patient has a history of pancreatic cancer, on chemotherapy. He was sent in from the office as his visiting nurse had called with a hemoglobin of 5.4. Hemoglobin in the office, about 3 days prior had been 10. Case was discussed with the ER physician, and blood transfusion as well as anemia workup including surgical consult was recommended due to concerns for bleeding. However CBC done here showed hemoglobin in the 8 range with stability in the same range since. For this drop from baseline can be explained by chemotherapy. Therefore the hemoglobin of 5.4 is likely an error. Okay for discharge from the oncology standpoint. Formal consult is not felt to be required.
--- NOTE | 2017-12-03 16:10 | P.HPIM ---
History of Present Illness H&P Date: 12/03/17 History and Physical and Discharge summary. The patient is a 77-year-old white male, well known to our service. He had presented in early 08/09, with abdominal pain ongoing for a few months. He was found of a 2.5 cm mass in the head of the pancreas highly suggestive of pancreatic malignancy. There was no obvious metastatic disease. The patient subsequently had an EUS at [facility] with FNA that confirmed the diagnosis of pancreatic adenocarcinoma. Unfortunately he developed a duodenal perforation during the procedure and required repair. After recovery, it was recommended and it was recommended that he have neoadjuvant chemotherapy as he was not felt to be primarily resectable. He was readmitted last month with intractable nausea, vomiting and abdominal pain. He did recover with symptomatic treatment. He subsequently started chemotherapy with gemcitabine and Abraxane he did have so far 8 cycles last one was Tuesday and he had IV saline infusion by the home care nurse unfortunately she did draw a HGB of the line and was 5.6 which I believe it is an error and the patient felt to be stable for discharge. Review of Systems Constitutional: Reports anorexia, Reports lethargy, Reports weakness, Denies chronic headaches, Denies chronic pain, Denies fever, Denies weight loss Eyes: denies blurred vision, denies bulging eye, denies decreased vision Ears: deny: decreased hearing Ears, nose, mouth and throat: Denies dysphagia, Denies neck lump, Denies swelling in throat, Denies sore throat Cardiovascular: Denies chest pain, Denies decreased exercise tolerance, Denies leg edema, Denies lightheadedness, Denies rapid heart beat, Denies shortness of breath, Denies syncope Respiratory: Denies congestion, Denies cough, Denies cough with sputum, Denies home oxygen, Denies sleep apnea, Denies snoring, Denies wheezing Gastrointestinal: Reports BRBPR, Reports hematochezia, Denies abdominal pain, Denies bloating, Denies heartburn, Denies hematemesis, Denies melena, Denies nausea, Denies vomiting Genitourinary: Denies discharge, Denies impotence Musculoskeletal: Denies myalgias Musculoskeletal: absent: ankle pain, ankle stiffness, ankle swelling, elbow pain , elbow stiffness, elbow swelling, foot pain, foot stiffness, foot swelling, hand pain, hand stiffness, hand swelling, hip pain, hip stiffness, hip swelling , knee pain, knee stiffness, knee swelling, shoulder pain, shoulder stiffness, shoulder swelling, wrist pain, wrist stiffness, wrist swelling Integumentary: Denies pruritus, Denies rash Neurological: Denies numbness, Denies weakness Psychiatric: Denies anxiety, Denies depression Endocrine: Denies fatigue, Denies weight change Past Medical History Past Medical History: Coronary Artery Disease (CAD), Cancer, GERD/Reflux, Hyperlipidemia, Hypertension, Osteoarthritis (OA), Renal Disease Additional Past Medical History / Comment(s): Pancreatic CA- recent dx pt recieved chemo 16 has had 9 tx so far. skin cancer with removal, nephrolithiasis with surgery, sinus problems at times, ulcerative colitis in the 1970s, back pain/sciatica, past numbness/tingling L arm-pt stated was d/t chemo, uti, History of Any Multi-Drug Resistant Organisms: None Reported Past Surgical History: Cholecystectomy, Heart Catheterization With Stent, Tonsillectomy Additional Past Surgical History / Comment(s): PCI/stent x5, pilonidial cyst removed, hemohroidectomy, EGD/colonoscopy that nicked his bowel followed by open laparotomy done at [facility], cystoscopy/kidney stone removal, skin cancer removed from R side of neck, bilateral cataract removals, port placement rt upper chest Past Anesthesia/Blood Transfusion Reactions: No Reported Reaction Date of Last Stent Placement:: 2012 Smoking Status: Former smoker - Past Family History Father Additional Family Medical History / Comment(s): Father at age 84 from old age with no major medical problems. Mother Additional Family Medical History / Comment(s): Mother from leukemia. Brother(s) Additional Family Medical History / Comment(s): She has a brother that from stomach cancer. Patient has 3 sisters with no major medical problems. Patient has 3 children with no major medical problems. Medications and Allergies Home Medications Medication Instructions Recorded Confirmed Type Isosorbide Mononitrate ER [Imdur] 30 mg PO BID 02/24/14 12/02/17 History Atenolol 25 mg PO DAILY 03/08/14 12/02/17 History Lisinopril 5 mg PO DAILY 03/08/14 12/02/17 History Nitroglycerin Sl Tabs [Nitrostat] 0.4 mg SL Q5M PRN 03/08/14 12/02/17 History Multivitamin/Iron/Folic Acid 1 tab PO DAILY 05/28/14 12/02/17 History [Centrum Complete Multivit Tab] Atorvastatin Calcium [Lipitor] 40 mg PO DAILY 09/08/17 12/02/17 History Aspirin EC [Ecotrin] 325 mg PO DAILY 09/10/17 12/02/17 History Famotidine [Pepcid] 20 mg PO DAILY 11/03/17 12/02/17 History Allergies Allergy/AdvReac Type Severity Reaction Status Date / Time cefepime Allergy Intermediate Rash/Hives Verified 12/02/17 15:59 Physical Exam Vitals: Vital Signs Temp Pulse Pulse Resp BP BP Pulse Ox 12/02/17 22:17 97.5 F L 78 20 124/60 98 12/02/17 18:12 97.9 F 77 16 150/77 100 12/02/17 17:38 72 16 135/63 100 12/02/17 16:06 59 L 16 122/84 100 12/02/17 14:53 98.3 F 86 16 83/47 100 Intake and Output 12/02/17 12/03/17 12/03/17 22:59 06:59 14:59 Intake Total 600 300 Balance 600 300 Intake: Oral 600 300 Other: # Voids 2 1 - Constitutional General appearance: average body habitus, no acute distress - EENT Eyes: anicteric sclerae, EOMI, PERRLA, no ptosis, no scleral icterus, normal appearance ENT: hearing grossly normal, NA/AT, normal oropharynx, no thrush Ears: bilateral: normal - Neck Neck: no lymphadenopathy, normal ROM, no rigidity, no stridor, no thyromegaly Carotids: bilateral: upstroke normal Thyroid: bilateral: normal size - Respiratory Respiratory: bilateral: diminished, negative: dullness, rales, rhonchi, wheezing , prolonged expiration, prolonged inspiration - Cardiovascular Rhythm: regular Heart sounds: normal: S1, S2 Abnormal Heart Sounds: systolic murmur, no S3 Gallop, no S4 Gallop, no click - Gastrointestinal General gastrointestinal: normal bowel sounds, soft, no splenomegaly, no tenderness, no umbilical hernia, no ventral hernia - Integumentary Integumentary: normal, normal turgor - Musculoskeletal Musculoskeletal: generalized weakness, strength equal bilaterally - Psychiatric Psychiatric: A&O x's 3, appropriate affect, intact judgment & insight Results CBC & Chem 7: 12/03/17 07:11 12/02/17 16:05 Labs: Abnormal Lab Results - Last 24 Hours (Table) 12/02/17 12/02/17 12/02/17 Range/Units 16:05 16:05 16:05 RBC 2.55 L (4.30-5.90) m/uL Hgb 8.3 L D (13.0-17.5) gm/dL Hct 25.6 L (39.0-53.0) % MCV 100.3 H (80.0-100.0) fL MCHC (31.0-37.0) g/dL RDW 19.2 H (11.5-15.5) % Plt Count (150-450) k/uL Lymphocytes # 0.7 L (1.0-4.8) k/uL INR 1.2 H (<1.2) APTT 34.0 H (22.0-30.0) sec Sodium 135 L (137-145) mmol/L BUN 22 H (9-20) mg/dL Glucose 145 H (74-99) mg/dL Total Protein 4.9 L (6.3-8.2) g/dL Albumin 2.6 L (3.5-5.0) g/dL Crossmatch 12/02/17 12/02/17 12/03/17 Range/Units 16:05 20:29 07:11 RBC 2.61 L 2.48 L (4.30-5.90) m/uL Hgb 8.4 L 7.8 L (13.0-17.5) gm/dL Hct 26.6 L 25.7 L (39.0-53.0) % MCV 101.8 H 103.7 H (80.0-100.0) fL MCHC 30.3 L (31.0-37.0) g/dL RDW 19.0 H 18.7 H (11.5-15.5) % Plt Count 136 L (150-450) k/uL Lymphocytes # 0.7 L (1.0-4.8) k/uL INR (<1.2) APTT (22.0-30.0) sec Sodium (137-145) mmol/L BUN (9-20) mg/dL Glucose (74-99) mg/dL Total Protein (6.3-8.2) g/dL Albumin (3.5-5.0) g/dL Crossmatch See Detail Thrombosis Risk Factor Assmnt - DVT/VTE Prophylaxis DVT/VTE Prophylaxis: Mechanical Prophylaxis ordered Assessment and Plan Assessment: Assessment and Plan: 1. Mild anemia thought to be due to chemotherapy. the results of 5.6 was an error. 2. Recent diagnosis of pancreatic cancer with ongoing chemotherapy. follow up with Hem-Onc as an outpatient. 3. Hypertension. Continue atenolol 25 mg at bedtime, lisinopril and Imdur. 4. Hyperlipidemia. Continue Lipitor 40 mg at bedtime. 5. History of coronary artery disease status post PCI. Lipitor 40 mg daily, atenolol 25 mg daily and Imdur 6. Gastroesophageal reflux disease and GI prophylaxis. Protonix 40 mg IV daily. Sucralfate and Pepcid. 7. Discharge home today and follow up with [facility]EM-[facility] as scheduled for the last cycle of Abraxane and Gemcitabine. 8. patient is stable for discharge.
== END 2017-12-03 10:15 | disposition home or self-care (01) | DRG 812 ==
LOC: EC 14:36 → 5MS5E 16:31
PROVIDERS: ADMIT Internal Medicine Geriatric Medicine; ATTEND Internal Medicine Geriatric Medicine
DX: D64.81 Anemia due to antineoplastic chemotherapy (principal); C25.9 Malignant neoplasm of pancreas, unspecified; E78.5 Hyperlipidemia, unspecified; I10 Essential (primary) hypertension; K21.9 Gastro-esophageal reflux disease without esophagitis; T45.1X5A Adverse effect of antineoplastic and immunosuppressive drugs, initial encounter; I25.10 Atherosclerotic heart disease of native coronary artery without angina pectoris; Z79.82 Long term (current) use of aspirin; Z79.899 Other long term (current) drug therapy; Z80.0 Family history of malignant neoplasm of digestive organs; Z80.6 Family history of leukemia; Z85.828 Personal history of other malignant neoplasm of skin; Z87.442 Personal history of urinary calculi; Z87.891 Personal history of nicotine dependence; Z98.61 Coronary angioplasty status; Z88.8 Allergy status to other drugs, medicaments and biological substances
CPT/HCPCS: 36415; 80053; 82272; 82728; 83540; 83550; 85025; 85045; 85610; 85730; 86850; 86900; 86901; 86920; 93005; 96374; 99285

== ENCOUNTER → 2017-12-12 | Outpatient (CLI) | payer MEDICARE ==
[~2017-12-12] MED LIST: SODIUM CHLORIDE 0.9% 500 ML in EMPTY BAG 1 BAG IV PRN
[2017-12-12 14:17] VITALS: BP 133/61; PULSE 69; RESP 16; TEMP 97.9
== END | disposition home or self-care (01) ==
LOC: PROCWHC3 09:35
PROVIDERS: ATTEND Internal Medicine Hematology & Oncology
DX: D64.81 Anemia due to antineoplastic chemotherapy (principal)
CPT/HCPCS: 86900; 86901; 86850; 86920; 36430; 36591; P9016; J1642

== ENCOUNTER 2017-12-29 11:24 | Emergency (ER) | payer MEDICARE ==
[2017-12-29] MEDS ORDERED: SODIUM CHLORIDE 0.9% 1,000 ML IV STA ×2 (11:39→13:19)
[2017-12-29 11:50] LABS: Glucose,Whole Blood 111 mg/dL (75-99)
[2017-12-29 11:54] VITALS: TEMP 97.9
--- NOTE | 2017-12-29 12:03 | ED ---
General Adult HPI - General Chief complaint: Altered Mental Status Stated complaint: Unresponsive Time Seen by Provider: 12/29/17 11:24 Source: patient, family, RN/MD, RN notes reviewed Mode of arrival: wheelchair Limitations: no limitations - History of Present Illness Initial comments: This is a 77-year-old male with a history of pancreatic cancer who is status post chemotherapy who is being evaluated in his radiation oncologist office today when he became unresponsive. He states he was feeling somewhat lightheaded and woozy when he came in his blood pressure initially was 90/60 was happy felt very warm and diaphoretic and passed out though he maintained a pulse per staff. His blood pressure at this time was 59/40. He did respond after brief episode of this he was brought to the emergency department after we responded to a CODE BLUE in the [facility]. Of note he had been receiving IV fluids at home he has not had any recently. He reported no fevers chills cough sweats or other symptoms prior to this other than the feeling somewhat woozy and weak. - Related Data Home Medications Medication Instructions Recorded Confirmed Isosorbide Mononitrate ER [Imdur] 30 mg PO BID 02/24/14 12/29/17 Atenolol 25 mg PO DAILY 03/08/14 12/29/17 Lisinopril 5 mg PO DAILY 03/08/14 12/29/17 Nitroglycerin Sl Tabs [Nitrostat] 0.4 mg SL Q5M PRN 03/08/14 12/29/17 Atorvastatin Calcium [Lipitor] 40 mg PO DAILY 09/08/17 12/29/17 Acetaminophen Tab [Tylenol Tab] 650 mg PO Q6H PRN 12/12/17 12/29/17 Pantoprazole [Protonix] 40 mg PO HS 12/12/17 12/29/17 Allergies Allergy/AdvReac Type Severity Reaction Status Date / Time cefepime Allergy Intermediate Rash/Hives Verified 12/12/17 09:40 Review of Systems ROS Statement: Those systems with pertinent positive or pertinent negative responses have been documented in the HPI. ROS Other: All systems not noted in ROS Statement are negative. Past Medical History Past Medical History: Coronary Artery Disease (CAD), Cancer, GERD/Reflux, Hyperlipidemia, Hypertension, Osteoarthritis (OA), Renal Disease Additional Past Medical History / Comment(s): Pancreatic CA- recent dx pt recieved chemo 18 has had 9 tx so far. skin cancer with removal, nephrolithiasis with surgery, sinus problems at times, ulcerative colitis in the 1970s, back pain/sciatica, past numbness/tingling L arm-pt stated was d/t chemo, uti, History of Any Multi-Drug Resistant Organisms: None Reported Past Surgical History: Cholecystectomy, Heart Catheterization With Stent, Tonsillectomy Additional Past Surgical History / Comment(s): PCI/stent x5, pilonidial cyst removed, hemohroidectomy, EGD/colonoscopy that nicked his bowel followed by open laparotomy done at [facility], cystoscopy/kidney stone removal, skin cancer removed from R side of neck, bilateral cataract removals, port placement rt upper chest Past Anesthesia/Blood Transfusion Reactions: No Reported Reaction Date of Last Stent Placement:: 2012 Past Psychological History: No Psychological Hx Reported Smoking Status: Former smoker - Past Family History Father Additional Family Medical History / Comment(s): Father at age 84 from old age with no major medical problems. Mother Additional Family Medical History / Comment(s): Mother from leukemia. Brother(s) Additional Family Medical History / Comment(s): She has a brother that from stomach cancer. Patient has 3 sisters with no major medical problems. Patient has 3 children with no major medical problems. General Exam - General Exam Comments Initial Comments: This is a well-developed well-nourished awake alert oriented 3 male he does appear pale Limitations: no limitations General appearance: alert, in no apparent distress Head exam: Present: atraumatic, normocephalic, normal inspection Eye exam: Present: normal appearance, PERRL, EOMI. Absent: scleral icterus, conjunctival injection, periorbital swelling ENT exam: Present: mucous membranes dry Neck exam: Present: normal inspection. Absent: tenderness, meningismus, lymphadenopathy Respiratory exam: Present: normal lung sounds bilaterally. Absent: respiratory distress, wheezes, rales, rhonchi, stridor Cardiovascular Exam: Present: regular rate, normal rhythm, normal heart sounds. Absent: systolic murmur, diastolic murmur, rubs, gallop, clicks GI/Abdominal exam: Present: soft, normal bowel sounds. Absent: distended, tenderness, guarding, rebound, rigid Extremities exam: Present: normal inspection, full ROM, normal capillary refill. Absent: tenderness, pedal edema, joint swelling, calf tenderness Back exam: Present: normal inspection Neurological exam: Present: alert, oriented X3, CN II-XII intact Psychiatric exam: Present: normal affect, normal mood Skin exam: Present: warm, intact, diaphoretic, pallor. Absent: rash Course Vital Signs 12/29/17 12/29/17 12/29/17 11:27 12:45 13:19 Temperature 97.9 F Pulse Rate 80 76 Pulse Rate [ 73 Sitting Receiving Team Member] Pulse Rate [ 83 Standing Receiving Team Member ] Pulse Rate [ 71 Supine Receiving Team Member] Respiratory 16 16 Rate Blood Pressure 102/56 155/68 Blood Pressure 101/54 [Right Arm Sitting] Blood Pressure 94/51 [Right Arm Standing] Blood Pressure 123/56 [Right Arm Supine] O2 Sat by Pulse 100 100 Oximetry - Reevaluation(s) Reevaluation #1: 12/29/17 13:19 Patient is feeling better after IV fluids he still has some lower blood pressure number she was able ably without difficulty he will receive more fluid and likely be discharged he would like to be discharged. He will be reassessed after a another fluid challenge. Medical Decision Making - Medical Decision Making I did reevaluate patient several occasions he is feeling much improved after IV hydration. He does apparently run a somewhat lower than usual blood pressure. He is able ably without difficulty after IV fluids he does desire to go home he will be able to this. He does have a presentation consistent with orthostatic hypotension. Additionally dehydration. - Lab Data Result diagrams: 12/29/17 11:40 12/29/17 11:40 Lab Results 12/29/17 12/29/17 12/29/17 Range/Units 11:40 11:40 11:40 WBC 12.2 H (3.8-10.6) k/uL RBC 3.78 L (4.30-5.90) m/uL Hgb 12.0 L (13.0-17.5) gm/dL Hct 38.0 L (39.0-53.0) % MCV 100.6 H (80.0-100.0) fL MCH 31.7 (25.0-35.0) pg MCHC 31.6 (31.0-37.0) g/dL RDW 18.6 H (11.5-15.5) % Plt Count 257 (150-450) k/uL Neutrophils % 69 % Lymphocytes % 16 % Monocytes % 6 % Eosinophils % 5 % Basophils % 1 % Neutrophils # 8.5 H (1.3-7.7) k/uL Lymphocytes # 1.9 (1.0-4.8) k/uL Monocytes # 0.8 (0-1.0) k/uL Eosinophils # 0.7 (0-0.7) k/uL Basophils # 0.1 (0-0.2) k/uL Hypochromasia Slight Anisocytosis Slight Macrocytosis Moderate Sodium (137-145) mmol/L Potassium (3.5-5.1) mmol/L Chloride (98-107) mmol/L Carbon Dioxide (22-30) mmol/L Anion Gap mmol/L BUN (9-20) mg/dL Creatinine (0.66-1.25) mg/dL Est GFR (CKD-EPI)AfAm (>60 ml/min/1.73 sqM) Est GFR (CKD-EPI)NonAf (>60 ml/min/1.73 sqM) Glucose (74-99) mg/dL POC Glucose (mg/dL) (75-99) mg/dL POC Glu Vp Compliance ID Calcium (8.4-10.2) mg/dL Magnesium (1.6-2.3) mg/dL Total Bilirubin (0.2-1.3) mg/dL AST (17-59) U/L ALT (21-72) U/L Alkaline Phosphatase (38-126) U/L Total Creatine Kinase <20 L (55-170) U/L CK-MB (CK-2) 0.5 (0.0-2.4) ng/mL CK-MB (CK-2) Rel Index Troponin I 0.017 (0.000-0.034) ng/mL Total Protein (6.3-8.2) g/dL Albumin (3.5-5.0) g/dL Blood Type A Negative Blood Type Recheck No Antibody Screen NEGATIVE Spec Expiration Date 01/01/2018 - 233912/29/17 12/29/17 Range/Units 11:40 11:49 WBC (3.8-10.6) k/uL RBC (4.30-5.90) m/uL Hgb (13.0-17.5) gm/dL Hct (39.0-53.0) % MCV (80.0-100.0) fL MCH (25.0-35.0) pg MCHC (31.0-37.0) g/dL RDW (11.5-15.5) % Plt Count (150-450) k/uL Neutrophils % % Lymphocytes % % Monocytes % % Eosinophils % % Basophils % % Neutrophils # (1.3-7.7) k/uL Lymphocytes # (1.0-4.8) k/uL Monocytes # (0-1.0) k/uL Eosinophils # (0-0.7) k/uL Basophils # (0-0.2) k/uL Hypochromasia Anisocytosis Macrocytosis Sodium 140 (137-145) mmol/L Potassium 4.2 (3.5-5.1) mmol/L Chloride 102 (98-107) mmol/L Carbon Dioxide 27 (22-30) mmol/L Anion Gap 11 mmol/L BUN 18 (9-20) mg/dL Creatinine 0.80 (0.66-1.25) mg/dL Est GFR (CKD-EPI)AfAm >90 (>60 ml/min/1.73 sqM) Est GFR (CKD-EPI)NonAf 85 (>60 ml/min/1.73 sqM) Glucose 113 H (74-99) mg/dL POC Glucose (mg/dL) 111 H (75-99) mg/dL POC Glu Vp Compliance ID Jeanne Bolanos Calcium 9.2 (8.4-10.2) mg/dL Magnesium 1.8 (1.6-2.3) mg/dL Total Bilirubin 0.6 (0.2-1.3) mg/dL AST 43 (17-59) U/L ALT 41 (21-72) U/L Alkaline Phosphatase 123 (38-126) U/L Total Creatine Kinase (55-170) U/L CK-MB (CK-2) (0.0-2.4) ng/mL CK-MB (CK-2) Rel Index Troponin I (0.000-0.034) ng/mL Total Protein 5.6 L (6.3-8.2) g/dL Albumin 3.0 L (3.5-5.0) g/dL Blood Type Blood Type Recheck Antibody Screen Spec Expiration Date - Radiology Data Radiology results: report reviewed (I did review the imaging and reports no acute findings are seen.), image reviewed Disposition Clinical Impression: Orthostatic hypotension, Near syncope, Dehydration Disposition: HOME SELF-CARE Condition: Good Instructions: Near Syncope (ED), Hypotension (ED), Dehydration (ED) Additional Instructions: Increase oral fluids, follow-up with her doctors as planned and return when necessary Referrals: Leodan Tadeo MD [Primary Care Provider] - 1-2 days
[2017-12-29 12:07] LABS: ALT 41 U/L (21-72); AST 43 U/L (17-59); Alkaline Phosphatase 123 U/L (38-126); Anion Gap 11 mmol/L; Blood Urea Nitrogen 18 mg/dL (9-20); Calcium 9.2 mg/dL (8.4-10.2); Carbon Dioxide 27 mmol/L (22-30); Chloride 102 mmol/L (98-107); Glucose 113 mg/dL (74-99); Potassium 4.2 mmol/L (3.5-5.1); Sodium 140 mmol/L (137-145); Total Bilirubin 0.6 mg/dL (0.2-1.3); Total Protein 5.6 g/dL (6.3-8.2)
[2017-12-29 12:10] LABS: Anisocytosis Slight; Basophils # (A) 0.1 k/uL (0-0.2); Basophils % (A) 1 %; Eosinophils # (A) 0.7 k/uL (0-0.7); Eosinophils % (A) 5 %; Hypochromasia Slight; Lymphocytes # (A) 1.9 k/uL (1.0-4.8); Lymphocytes % (A) 16 %; MCH 31.7 pg (25.0-35.0); MCHC 31.6 g/dL (31.0-37.0); MCV 100.6 fL (80.0-100.0); Macrocytosis Moderate; Mean Platelet Volume 7.2; Monocytes # (A) 0.8 k/uL (0-1.0); Monocytes % (A) 6 %; Neutrophils # (A) 8.5 k/uL (1.3-7.7); Neutrophils % (A) 69 %; Platelet Count 257 k/uL (150-450); RBC 3.78 m/uL (4.30-5.90); RDW 18.6 % (11.5-15.5); WBC 12.2 k/uL (3.8-10.6)
--- NOTE | 2017-12-29 12:12 | XR ---
EXAMINATION TYPE: XR chest 1V portable DATE OF EXAM: 12/29/2017 COMPARISON: 11/03/2017 HISTORY: Pain TECHNIQUE: Single frontal view of the chest is obtained. FINDINGS: Mediport catheter seen. No pneumothorax. No overt failure. No consolidation. Heart size st able. Hypertrophic change of the spine noted. Arthropathy of the shoulders. Biapical pleural thickeni ng. IMPRESSION: No acute process.
[2017-12-29 12:18] LABS: Creatine Kinase <20 U/L (55-170)
[2017-12-29 12:31] LABS: Creatine Kinase MB 0.5 ng/mL (0.0-2.4); Troponin I 0.017 ng/mL (0.000-0.034)
[2017-12-29 15:09] VITALS: BP 134/74; PULSE 82; RESP 18
== END 2017-12-29 15:05 | disposition home or self-care (01) ==
LOC: EC 11:24
DX: I95.1 Orthostatic hypotension (principal); E86.0 Dehydration; R23.1 Pallor; C25.9 Malignant neoplasm of pancreas, unspecified; E78.5 Hyperlipidemia, unspecified; I10 Essential (primary) hypertension; I25.10 Atherosclerotic heart disease of native coronary artery without angina pectoris; K21.9 Gastro-esophageal reflux disease without esophagitis; Z87.891 Personal history of nicotine dependence; Z79.899 Other long term (current) drug therapy; Z88.1 Allergy status to other antibiotic agents; Z92.21 Personal history of antineoplastic chemotherapy; Z85.828 Personal history of other malignant neoplasm of skin; Z98.890 Other specified postprocedural states
CPT/HCPCS: 36415; 71045; 80053; 82550; 82553; 83735; 84484; 85025; 86850; 86900; 86901; 96360; 96361; 99285

== ENCOUNTER 2018-02-09 10:40 | Emergency (ER) | payer MEDICARE ==
[2018-02-09] MEDS ORDERED: SODIUM CHLORIDE 0.9% 1,000 ML IV STA (12:21)
[2018-02-09] MEDS ORDERED: SODIUM CHLORIDE 0.9% 2,000 ML IV ONE (12:21)
[2018-02-09 13:01] LABS: ALT 29 U/L (21-72); AST 22 U/L (17-59); Alkaline Phosphatase 82 U/L (38-126); Amylase <30 U/L (30-110); Anion Gap 12 mmol/L; Blood Urea Nitrogen 10 mg/dL (9-20); Calcium 8.8 mg/dL (8.4-10.2); Carbon Dioxide 28 mmol/L (22-30); Chloride 100 mmol/L (98-107); Glucose 92 mg/dL (74-99); Lipase <10 U/L (23-300); Magnesium 1.3 mg/dL (1.6-2.3); Sodium 140 mmol/L (137-145); Total Bilirubin 0.7 mg/dL (0.2-1.3); Total Protein 5.1 g/dL (6.3-8.2)
[2018-02-09 13:05] LABS: Anisocytosis Slight; Basophils % (A) 0 %; Eosinophils # (A) 0.3 k/uL (0-0.7); Eosinophils % (A) 8 %; HCT 37.6 % (39.0-53.0); HGB 12.7 gm/dL (13.0-17.5); Lymphocytes # (A) 0.4 k/uL (1.0-4.8); Lymphocytes % (A) 12 %; MCH 32.7 pg (25.0-35.0); MCHC 33.9 g/dL (31.0-37.0); MCV 96.5 fL (80.0-100.0); Macrocytosis Slight; Mean Platelet Volume 7.2; Monocytes # (A) 0.4 k/uL (0-1.0); Monocytes % (A) 12 %; Neutrophils # (A) 2.2 k/uL (1.3-7.7); Neutrophils % (A) 63 %; Platelet Count 143 k/uL (150-450); RDW 17.1 % (11.5-15.5); WBC 3.5 k/uL (3.8-10.6)
[2018-02-09 13:07] LABS: Potassium 2.9 mmol/L (3.5-5.1)
[2018-02-09 13:17] LABS: Creatine Kinase MB 0.4 ng/mL (0.0-2.4)
--- NOTE | 2018-02-09 13:19 | ED ---
Nausea/Vomiting/Diarrhea HPI - General Chief complaint: Nausea/Vomiting/Diarrhea Stated complaint: dehydration, following chemo Time Seen by Provider: 02/09/18 11:30 Source: patient, RN notes reviewed Mode of arrival: wheelchair Limitations: no limitations - History of Present Illness Initial comments: This is a 76-year-old male with a history of pancreatic cancer who was sent over here by his radiation oncology doctor for evaluation for dehydration. Patient had nausea vomiting for the past week and hasn't had watery diarrhea also he states she's had about a 7 pound weight loss last week. Blood pressure upon arrival here was 93/63 with a heart rate of 118. He denies any other complaints he has had some lightheadedness and dizziness however. No chest pain no weakness was upper or lower extremities specifically but just generalized weakness. She decreased oral intake also. No other my reading factors MD complaint: nausea, vomiting, diarrhea - Related Data Home Medications Medication Instructions Recorded Confirmed Isosorbide Mononitrate ER [Imdur] 30 mg PO DAILY 02/24/14 02/09/18 Atenolol 25 mg PO DAILY 03/08/14 02/09/18 Lisinopril 5 mg PO DAILY 03/08/14 02/09/18 Nitroglycerin Sl Tabs [Nitrostat] 0.4 mg SL Q5M PRN 03/08/14 02/09/18 Capecitabine [Xeloda] 1,500 mg PO DIRECTED 02/09/18 02/09/18 Multivitamins, Thera [Multivitamin 1 tab PO DAILY 02/09/18 02/09/18 (formulary)] Ondansetron HCl 8 mg PO TID PRN 02/09/18 02/09/18 Scopolamine 1.5MG/72Hr Patch 1 patch TRANSDERM Q72H 02/09/18 02/09/18 [Transderm-Scop 1.5MG/72Hr Patch] Sucralfate [Carafate] 1 gm PO BID 02/09/18 02/09/18 Previous Rx's Medication Instructions Recorded Magnesium 200 mg PO DAILY #14 tablet 02/09/18 Allergies Allergy/AdvReac Type Severity Reaction Status Date / Time cefepime Allergy Intermediate Rash/Hives Verified 02/09/18 11:14 Review of Systems ROS Statement: Those systems with pertinent positive or pertinent negative responses have been documented in the HPI. ROS Other: All systems not noted in ROS Statement are negative. Past Medical History Past Medical History: Coronary Artery Disease (CAD), Cancer, GERD/Reflux, Hyperlipidemia, Hypertension, Osteoarthritis (OA), Renal Disease Additional Past Medical History / Comment(s): Pancreatic CA- recent dx pt recieved chemo 18 has had 9 tx so far. skin cancer with removal, nephrolithiasis with surgery, sinus problems at times, ulcerative colitis in the 1970s, back pain/sciatica, past numbness/tingling L arm-pt stated was d/t chemo, uti, History of Any Multi-Drug Resistant Organisms: None Reported Past Surgical History: Cholecystectomy, Heart Catheterization With Stent, Tonsillectomy Additional Past Surgical History / Comment(s): PCI/stent x5, pilonidial cyst removed, hemohroidectomy, EGD/colonoscopy that nicked his bowel followed by open laparotomy done at [facility], cystoscopy/kidney stone removal, skin cancer removed from R side of neck, bilateral cataract removals, port placement rt upper chest Past Anesthesia/Blood Transfusion Reactions: No Reported Reaction Date of Last Stent Placement:: 2012 Past Psychological History: No Psychological Hx Reported Smoking Status: Former smoker Past Alcohol Use History: None Reported Past Drug Use History: None Reported - Past Family History Father Additional Family Medical History / Comment(s): Father at age 84 from old age with no major medical problems. Mother Additional Family Medical History / Comment(s): Mother from leukemia. Brother(s) Additional Family Medical History / Comment(s): She has a brother that from stomach cancer. Patient has 3 sisters with no major medical problems. Patient has 3 children with no major medical problems. General Exam - General Exam Comments Initial Comments: This is a well-developed well-nourished awake alert oriented times 3 male Limitations: no limitations General appearance: alert, in no apparent distress Head exam: Present: atraumatic, normocephalic, normal inspection Eye exam: Present: normal appearance, PERRL, EOMI. Absent: scleral icterus, conjunctival injection, periorbital swelling ENT exam: Present: mucous membranes dry Neck exam: Present: normal inspection. Absent: tenderness, meningismus, lymphadenopathy Respiratory exam: Present: normal lung sounds bilaterally. Absent: respiratory distress, wheezes, rales, rhonchi, stridor Cardiovascular Exam: Present: normal rhythm, tachycardia, normal heart sounds. Absent: systolic murmur, diastolic murmur, rubs, gallop, clicks GI/Abdominal exam: Present: soft, normal bowel sounds. Absent: distended, tenderness, guarding, rebound, rigid Extremities exam: Present: normal inspection, full ROM, normal capillary refill. Absent: tenderness, pedal edema, joint swelling, calf tenderness Back exam: Present: normal inspection Neurological exam: Present: alert, oriented X3, CN II-XII intact Psychiatric exam: Present: normal affect, normal mood Skin exam: Present: warm, dry, intact, normal color. Absent: rash Course Vital Signs 02/09/18 02/09/18 10:49 13:23 Temperature 98.4 F Pulse Rate 102 H 85 Respiratory 20 18 Rate Blood Pressure 91/53 147/66 O2 Sat by Pulse 100 99 Oximetry Medical Decision Making - Medical Decision Making The patient is feeling much improved after IV hydration and supplementation of potassium and magnesium he will be discharged she is a follow-up with Dr. cabrera. He does have potassium at home we will start taking it he'll also be prescribed magnesium supplements he was encouraged to increase his oral fluid intake - Lab Data Result diagrams: 02/09/18 12:10 02/09/18 12:10 Lab Results 02/09/18 02/09/18 02/09/18 Range/Units 12:10 12:10 12:10 WBC 3.5 L (3.8-10.6) k/uL RBC 3.90 L (4.30-5.90) m/uL Hgb 12.7 L (13.0-17.5) gm/dL Hct 37.6 L (39.0-53.0) % MCV 96.5 (80.0-100.0) fL MCH 32.7 (25.0-35.0) pg MCHC 33.9 (31.0-37.0) g/dL RDW 17.1 H (11.5-15.5) % Plt Count 143 L (150-450) k/uL Neutrophils % 63 % Lymphocytes % 12 % Monocytes % 12 % Eosinophils % 8 % Basophils % 0 % Neutrophils # 2.2 (1.3-7.7) k/uL Lymphocytes # 0.4 L (1.0-4.8) k/uL Monocytes # 0.4 (0-1.0) k/uL Eosinophils # 0.3 (0-0.7) k/uL Basophils # 0.0 (0-0.2) k/uL Anisocytosis Slight Macrocytosis Slight Sodium 140 (137-145) mmol/L Potassium 2.9 L* (3.5-5.1) mmol/L Chloride 100 (98-107) mmol/L Carbon Dioxide 28 (22-30) mmol/L Anion Gap 12 mmol/L BUN 10 (9-20) mg/dL Creatinine 0.63 L (0.66-1.25) mg/dL Est GFR (CKD-EPI)AfAm >90 (>60 ml/min/1.73 sqM) Est GFR (CKD-EPI)NonAf >90 (>60 ml/min/1.73 sqM) Glucose 92 (74-99) mg/dL Calcium 8.8 (8.4-10.2) mg/dL Magnesium 1.3 L (1.6-2.3) mg/dL Total Bilirubin 0.7 (0.2-1.3) mg/dL AST 22 (17-59) U/L ALT 29 (21-72) U/L Alkaline Phosphatase 82 (38-126) U/L Total Creatine Kinase 27 L (55-170) U/L CK-MB (CK-2) 0.4 (0.0-2.4) ng/mL CK-MB (CK-2) Rel Index 1.5 Total Protein 5.1 L (6.3-8.2) g/dL Albumin 3.0 L (3.5-5.0) g/dL Amylase <30 L (30-110) U/L Lipase <10 L (23-300) U/L - EKG Data -: EKG Interpreted by Ms EKG shows normal: sinus rhythm (Sinus rhythm rate is 79. Interval 178 QRS duration 106 QT since QTC of 396/ 456 left exodeviation no acute ST-T wave changes.) Disposition Clinical Impression: Dehydration, Hypokalemia, Hypomagnesemia, Pancreatic cancer Disposition: HOME SELF-CARE Condition: Good Instructions: Acute Nausea and Vomiting (ED), Acute Diarrhea (ED), Dehydration (ED), Hypokalemia (ED), Hypomagnesemia (ED) Additional Instructions: Start taking a potassium prescription you have at home Prescriptions: Magnesium 200 mg PO DAILY #14 tablet Is patient prescribed a controlled substance at d/c from ED?: No Referrals: Leodan Tadeo MD [Primary Care Provider] - 1-2 days
--- NOTE | 2018-02-09 13:58 | XR ---
EXAMINATION TYPE: XR abdomen acute w cxr DATE OF EXAM: 02/09/2018 COMPARISON: Prior chest x-ray 12/29/2017, CT abdomen pelvis 10/16/2017 HISTORY: Pancreatic cancer, dehydration TECHNIQUE: Supine, upright, and left side down lateral decubitus views of the abdomen are obtained w ith frontal view chest x-ray. FINDINGS: Chest x-ray stable. Port-A-Cath is unchanged in position. No evident pneumonia or acute ab normality. There is no evidence for pneumoperitoneum. The bowel gas pattern is unremarkable as there is air throughout nondilated small and large bowel. No sizeable air fluid levels. No mass effects are seen. Calcifications over the right kidney are present, largest measures approximately millimeters. Surgica l clips present right upper quadrant. Probable vascular calcifications within the pelvis. Degenerativ e disc disease in the visualized spine. IMPRESSION: Right-sided nephrolithiasis again noted.
[2018-02-09] MEDS ORDERED: MAGNESIUM SULFATE-D5W PMX 1 GM in DEXTROSE/WATER 1 100ML.BAG IVPB ONE (14:09)
[2018-02-09] MEDS ORDERED: POTASSIUM CHLORIDE ER 20 MEQ TAB.ER PO STA (14:09)
[2018-02-09] MEDS ORDERED: SODIUM CHLORIDE 0.9% 500 ML IV STA (15:21)
[2018-02-09 15:58] VITALS: BP 171/77; PULSE 84; RESP 20; TEMP 97.8
== END 2018-02-09 16:01 | disposition home or self-care (01) ==
LOC: EC 10:40
DX: E87.6 Hypokalemia (principal); E86.0 Dehydration; E83.42 Hypomagnesemia; C25.9 Malignant neoplasm of pancreas, unspecified; I25.10 Atherosclerotic heart disease of native coronary artery without angina pectoris; K21.9 Gastro-esophageal reflux disease without esophagitis; I10 Essential (primary) hypertension; Z85.828 Personal history of other malignant neoplasm of skin; Z87.891 Personal history of nicotine dependence; Z79.899 Other long term (current) drug therapy; Z88.1 Allergy status to other antibiotic agents
CPT/HCPCS: 36415; 93005; 80053; 82150; 82550; 82553; 83690; 83735; 85025; 74022; 99284; 96365; 96361 ×3; J3475

== ENCOUNTER 2018-05-01 15:46 | Emergency (ER) | payer MEDICARE ==
[2018-05-01 17:28] VITALS: BP 186/81; PULSE 67; RESP 18; TEMP 97.5
--- NOTE | 2018-05-01 18:50 | ED ---
Extremity Problem HPI - General Chief complaint: Extremity Problem,Nontraumatic Stated complaint: Dr Gibbons/Leg Pain Time Seen by Provider: 05/01/18 17:33 Source: patient, RN notes reviewed Mode of arrival: ambulatory Limitations: no limitations - History of Present Illness Initial comments: This is 77-year-old male with past medical history of stage I pancreatic cancer and coronary artery disease status post 5 stents placements who presents today for chief complaint of left foot and calf swelling as well as left medial calf pain. Patient states that his home care nurse was visiting for a hydration visit when she notice a mild increase in swelling of the left lower extremity, he states that he has baseline swelling ever since his diagnosis of pancreatic cancer. He did admit to pain, a dull ache less than 310 to the medial aspect of the left lower calf. He denies history of DVTs, erythema of the overlying skin, palpable mass in the calf. In addition patient did admit to mild swelling the day prior of the right foot. Patient had been on his feet a lot the day prior to April 30, doing a lot of gardening--he initially thought that this was due to that--However his home care nurse wanted him to present to the emergency department to rule out DVT. Upon presentation patient's vital signs within normal limits. Patient denies chest pain, palpitations, shortness of breath, hemoptysis, cough or pleuritic CP. In addition patient denies any recent fever, chills, back pain, abdominal pain, nausea or vomiting, numbness or tingling, dysuria or hematuria, constipation or diarrhea, headaches or visual changes, or any other complaints. - Related Data Home Medications Medication Instructions Recorded Confirmed Isosorbide Mononitrate ER [Imdur] 30 mg PO BID 02/24/14 05/01/18 Atenolol 25 mg PO DAILY 03/08/14 05/01/18 Lisinopril 5 mg PO DAILY 03/08/14 05/01/18 Nitroglycerin Sl Tabs [Nitrostat] 0.4 mg SL Q5M PRN 03/08/14 05/01/18 Multivitamins, Thera [Multivitamin 1 tab PO DAILY 02/09/18 05/01/18 (formulary)] Aspirin 162.5 mg PO DAILY 05/01/18 05/01/18 Atorvastatin [Lipitor] 40 mg PO DAILY 05/01/18 05/01/18 Famotidine [Pepcid] 20 mg PO DAILY 05/01/18 05/01/18 Pantoprazole Sodium [Protonix] 40 mg PO DAILY 05/01/18 05/01/18 Potassium Chloride ER [K-Dur 20] 20 meq PO BID 05/01/18 05/01/18 Previous Rx's Medication Instructions Recorded Magnesium 200 mg PO DAILY #14 tablet 02/09/18 Allergies Allergy/AdvReac Type Severity Reaction Status Date / Time cefepime Allergy Intermediate Rash/Hives Verified 05/01/18 17:38 Review of Systems ROS Statement: Those systems with pertinent positive or pertinent negative responses have been documented in the HPI. ROS Other: All systems not noted in ROS Statement are negative. Constitutional: Denies: fever, chills Eyes: Denies: eye pain ENT: Denies: ear pain Respiratory: Denies: cough, dyspnea, hemoptysis Cardiovascular: Denies: chest pain, palpitations Endocrine: Denies: fatigue Gastrointestinal: Denies: abdominal pain, vomiting, diarrhea, constipation Genitourinary: Denies: frequency Musculoskeletal: Reports: as per HPI Skin: Denies: as per HPI, rash, lesions Neurological: Denies: headache, weakness, numbness, paresthesias Past Medical History Past Medical History: Coronary Artery Disease (CAD), Cancer, GERD/Reflux, Hyperlipidemia, Hypertension, Osteoarthritis (OA), Renal Disease Additional Past Medical History / Comment(s): Pancreatic CA- recent dx pt recieved chemo 2-18 has had 9 tx so far. skin cancer with removal, nephrolithiasis with surgery, sinus problems at times, ulcerative colitis in the 1970s, back pain/sciatica, past numbness/tingling L arm-pt stated was d/t chemo, uti, History of Any Multi-Drug Resistant Organisms: None Reported Past Surgical History: Cholecystectomy, Heart Catheterization With Stent, Tonsillectomy Additional Past Surgical History / Comment(s): PCI/stent x5, pilonidial cyst removed, hemohroidectomy, EGD/colonoscopy that nicked his bowel followed by open laparotomy done at [facility], cystoscopy/kidney stone removal, skin cancer removed from R side of neck, bilateral cataract removals, port placement rt upper chest Past Anesthesia/Blood Transfusion Reactions: No Reported Reaction Date of Last Stent Placement:: 2012 Past Psychological History: No Psychological Hx Reported Smoking Status: Former smoker Past Alcohol Use History: None Reported Past Drug Use History: None Reported - Past Family History Father Additional Family Medical History / Comment(s): Father at age 84 from old age with no major medical problems. Mother Additional Family Medical History / Comment(s): Mother from leukemia. Brother(s) Additional Family Medical History / Comment(s): She has a brother that from stomach cancer. Patient has 3 sisters with no major medical problems. Patient has 3 children with no major medical problems. General Exam - General Exam Comments Initial Comments: General: The patient is awake and alert, in no distress, and does not appear acutely ill. Eye: Pupils are equal, round and reactive to light, extra-ocular movements are intact. No nystagmus. There is normal conjunctiva bilaterally. No signs of icterus. Ears, nose, mouth and throat: There are moist mucous membranes and no oral lesions. Neck: The neck is supple, there is no tenderness or JVD. Cardiovascular: There is a regular rate and rhythm. No murmur, rub or gallop is appreciated. Respiratory: Lungs are clear to auscultation, respirations are non-labored, breath sounds are equal. No wheezes, stridor, rales, or rhonchi. Gastrointestinal: [Soft, non-distended, non-tender abdomen without masses or organomegaly noted. There is no rebound or guarding present. No CVA tenderness. Bowel sounds are unremarkable.] Musculoskeletal: +1 pitting edema of the left lower extremity pretibial area as well as the left forefoot.There is mild edema to the right forefoot. There was tenderness to palpation over the right medial aspect of the left calf, there is no evidence of overlying erythema or underlying masses. Homans sign negative bilaterally. Sensation of the lower extremities bilaterally, equal. + 2 dorsalis pedis pulses bilaterally. Neurological: A&O x 3. CN II-XII intact, There are no obvious motor or sensory deficits. Coordination appears grossly intact. Speech is normal. Skin: Skin is warm and dry and no rashes or lesions are noted. Psychiatric: Cooperative, appropriate mood & affect, normal judgment. Limitations: no limitations Course Vital Signs 05/01/18 17:25 Temperature 97.5 F L Pulse Rate 67 Respiratory 18 Rate Blood Pressure 186/81 O2 Sat by Pulse 100 Oximetry Medical Decision Making - Medical Decision Making This is 77-year-old male with past medical history of stage I pancreatic cancer and coronary artery disease status post 5 stents placements who presents today for chief complaint of left foot and calf swelling as well as left medial calf pain. Patient states that his home care nurse was visiting for a hydration visit when she notice a mild increase in swelling of the left lower extremity, he states that he has baseline swelling ever since his diagnosis of pancreatic cancer. He did admit to pain, a dull ache less than 310 to the medial aspect of the left lower calf. He denies history of DVTs, erythema of the overlying skin, palpable mass in the calf. In addition patient did admit to mild swelling the day prior of the right foot. Patient had been on his feet a lot the day prior to April 30, doing a lot of gardening--he initially thought that this was due to that--However his home care nurse wanted him to present to the emergency department to rule out DVT. Upon presentation patient's vital signs within normal limits. Patient denies chest pain, palpitations, shortness of breath, hemoptysis, cough or pleuritic CP. In addition patient denies any recent fever, chills, back pain, abdominal pain, nausea or vomiting, numbness or tingling, dysuria or hematuria, constipation or diarrhea, headaches or visual changes, or any other complaints. Upon physical examination there is +1 pitting edema of the left lower extremity pretibial area as well as the left forefoot. There is mild edema to the right forefoot. There was tenderness to palpation over the right medial aspect of the left calf, there is no evidence of overlying erythema or underlying masses. Homans sign negative bilaterally. Sensation of the lower extremities bilaterally, equal. +2 dorsalis pedis pulses bilaterally. Venous duplex ultrasounds of the lower extremities were obtained, negative for DVT b/l. Given the history of hydration visits with home care nurses, and increased activity on his feet, i feel at this time the most likely diagnosis is dependent edema. The case was discussed with Dr. Araya who agreed with dx and plan. Pt was discharged with PCP f/u. And instructed to return to the emergency department if symptoms worsen or change. Disposition Clinical Impression: Dependent edema Disposition: HOME SELF-CARE Condition: Good Instructions: Leg Edema (ED) Additional Instructions: Please follow-up with family doctor in the next 2 days of symptoms have not improved. Please return to emergency room if the symptoms increase or worsen or for any other concerns. Is patient prescribed a controlled substance at d/c from ED?: No Referrals: Leodan Tadeo MD [Primary Care Provider] - 1-2 days Time of Disposition: 19:10
--- NOTE | 2018-05-01 18:53 | US ---
EXAMINATION TYPE: US venous doppler duplex LE DATE OF EXAM: 05/01/2018 6:40 PM COMPARISON: NONE CLINICAL HISTORY: Pain. Edema. SIDE PERFORMED: Bilateral TECHNIQUE: The lower extremity deep venous system is examined utilizing real time linear array sonog laila with graded compression, doppler sonography and color-flow sonography. VESSELS IMAGED: External Iliac Vein (EIV) Common Femoral Vein Deep Femoral Vein Greater Saphenous Vein * Femoral Vein Popliteal Vein Small Saphenous Vein * Proximal Calf Veins (* superficial vessels) Right Leg: Negative for DVT Left Leg: Negative for DVT No evidence of DVT bilateral legs. IMPRESSION: Negative exam. No evidence of deep venous thrombosis in both legs.
== END 2018-05-01 19:27 | disposition home or self-care (01) ==
LOC: EC 15:46
DX: R60.9 Edema, unspecified (principal); M79.672 Pain in left foot; C25.9 Malignant neoplasm of pancreas, unspecified; I25.10 Atherosclerotic heart disease of native coronary artery without angina pectoris; K21.9 Gastro-esophageal reflux disease without esophagitis; E78.5 Hyperlipidemia, unspecified; I10 Essential (primary) hypertension; Z85.828 Personal history of other malignant neoplasm of skin; Z87.891 Personal history of nicotine dependence; Z79.82 Long term (current) use of aspirin; Z79.899 Other long term (current) drug therapy; Z88.1 Allergy status to other antibiotic agents; Z95.5 Presence of coronary angioplasty implant and graft
CPT/HCPCS: 93970; 99283

== ENCOUNTER 2018-06-26 08:25 | Emergency (ER) | payer MEDICARE ==
[2018-06-26 08:29] VITALS: RESP 18
[2018-06-26] MEDS ORDERED: ONDANSETRON 4 MG/2 ML VIAL IVP STA (08:39)
[2018-06-26] MEDS ORDERED: SODIUM CHLORIDE 0.9% 1,000 ML IV STA ×2 (08:39→09:32)
[2018-06-26] MEDS ORDERED: HYDROmorphone 1 MG/ML 1 ML SYRINGE IVP STA ×2 (08:39→09:58)
--- NOTE | 2018-06-26 08:44 | ED ---
General Adult HPI - General Chief complaint: Abdominal Pain Stated complaint: Abd.pain Time Seen by Provider: 06/26/18 08:30 Source: patient, RN notes reviewed Mode of arrival: wheelchair Limitations: no limitations - History of Present Illness Initial comments: 77-year-old male with a past medical history of pancreatic cancer and kidney stones presents to the emergency department with a chief complaint of right lower quadrant abdominal pain. This started about 2 hours ago. He states it with sudden pain. He denies any changes in urination he denies any vomiting. He states it is tender to touch. He denies any diarrhea. He is currently under chemo treatment for his pancreatic cancer but states his last sugar was on Tuesday is nothing like the pain he has experienced with this issue. He states he was concerned due to the pain he took one of his pain medication at home he does not recall the name and it did not help with symptoms. He states that he is not currently having any other complaints. Patient denies any recent fever, chills, shortness of breath, chest pain, back pain, nausea vomiting, numbness or tingling, dysuria or hematuria, constipation or diarrhea, headaches or visual changes, or any other current symptoms. - Related Data Home Medications Medication Instructions Recorded Confirmed Isosorbide Mononitrate ER [Imdur] 30 mg PO BID 02/24/14 06/26/18 Atenolol 25 mg PO DAILY 03/08/14 06/26/18 Lisinopril 5 mg PO DAILY 03/08/14 06/26/18 Nitroglycerin Sl Tabs [Nitrostat] 0.4 mg SL Q5M PRN 03/08/14 06/26/18 Multivitamins, Thera [Multivitamin 1 tab PO DAILY 02/09/18 06/26/18 (formulary)] Aspirin 162.5 mg PO DAILY 05/01/18 06/26/18 Atorvastatin [Lipitor] 40 mg PO DAILY 05/01/18 06/26/18 Famotidine [Pepcid] 20 mg PO DAILY 05/01/18 06/26/18 Pantoprazole Sodium [Protonix] 40 mg PO DAILY 05/01/18 06/26/18 Potassium Chloride ER [K-Dur 20] 20 meq PO BID 05/01/18 06/26/18 Previous Rx's Medication Instructions Recorded Magnesium 200 mg PO DAILY #14 tablet 02/09/18 Ketorolac [Toradol] 10 mg PO Q6HR #20 tab 06/26/18 Ondansetron Odt [Zofran ODT] 4 mg PO Q8HR PRN #20 tab 06/26/18 Tamsulosin [Flomax] 0.4 mg PO DAILY #5 cap 06/26/18 Allergies Allergy/AdvReac Type Severity Reaction Status Date / Time cefepime Allergy Intermediate Rash/Hives Verified 06/26/18 08:29 Review of Systems ROS Statement: Those systems with pertinent positive or pertinent negative responses have been documented in the HPI. ROS Other: All systems not noted in ROS Statement are negative. Past Medical History Past Medical History: Coronary Artery Disease (CAD), Cancer, GERD/Reflux, Hyperlipidemia, Hypertension, Osteoarthritis (OA), Renal Disease Additional Past Medical History / Comment(s): Pancreatic CA- recent dx pt recieved chemo 11-29-17 has had 9 tx so far. skin cancer with removal, nephrolithiasis with surgery, sinus problems at times, ulcerative colitis in the , back pain/sciatica, past numbness/tingling L arm-pt stated was d/t chemo, uti, History of Any Multi-Drug Resistant Organisms: None Reported Past Surgical History: Cholecystectomy, Heart Catheterization With Stent, Tonsillectomy Additional Past Surgical History / Comment(s): PCI/stent x5, pilonidial cyst removed, hemohroidectomy, EGD/colonoscopy that nicked his bowel followed by open laparotomy done at [facility], cystoscopy/kidney stone removal, skin cancer removed from R side of neck, bilateral cataract removals, port placement rt upper chest Past Anesthesia/Blood Transfusion Reactions: No Reported Reaction Date of Last Stent Placement:: 2012 Past Psychological History: No Psychological Hx Reported Smoking Status: Former smoker Past Alcohol Use History: None Reported Past Drug Use History: None Reported - Past Family History Father Additional Family Medical History / Comment(s): Father at age 84 from old age with no major medical problems. Mother Additional Family Medical History / Comment(s): Mother from leukemia. Brother(s) Additional Family Medical History / Comment(s): She has a brother that from stomach cancer. Patient has 3 sisters with no major medical problems. Patient has 3 children with no major medical problems. General Exam - General Exam Comments Initial Comments: General: The patient is awake and alert, in no distress, and does not appear acutely ill. Eye: Pupils are equal, round. there is normal conjunctiva bilaterally. No signs of icterus. Ears, nose, mouth and throat: There are moist mucous membranes and no oral lesions. Neck: The neck is supple, there is no tenderness. Cardiovascular: There is a regular rate and rhythm. No murmur, rub or gallop is appreciated. Respiratory: Lungs are clear to auscultation, respirations are non-labored, breath sounds are equal. No wheezes, stridor, rales, or rhonchi. Gastrointestinal: Soft, non-distended, some tenderness along the right lower quadrant and into the right flank without masses or organomegaly noted. There is no rebound or guarding present. No CVA tenderness. Bowel sounds are unremarkable. Back: There is no tenderness to palpation in the midline. There is no obvious deformity. No rashes noted. Musculoskeletal: Normal ROM, no tenderness, There is no pedal edema. There is no calf tenderness or swelling. Sensation intact. Pulses equal bilaterally 2+. Neurological: CN II-XII intact, There are no obvious motor or sensory deficits. Coordination appears grossly intact. Speech is normal. Skin: Skin is warm and dry and no rashes or lesions are noted. Psychiatric: Cooperative, appropriate mood & affect, normal judgment. Limitations: no limitations Course Vital Signs 06/26/18 06/26/18 06/26/18 08:28 09:14 10:08 Temperature 97.5 F L Pulse Rate 75 46 L 57 L Respiratory 18 18 18 Rate Blood Pressure 140/72 168/75 199/87 O2 Sat by Pulse 97 100 99 Oximetry 06/26/18 10:42 Temperature Pulse Rate 54 L Respiratory 18 Rate Blood Pressure 176/74 O2 Sat by Pulse 94 L Oximetry Medical Decision Making - Medical Decision Making 77-year-old male presents for right lower quadrant abdominal pain. At this time patient has started to feel better. There does appear to be 3 mm calculus noted. With 2 doses of pain medication patient did have great improvement. Patient does have elevated lactic however no source of infection is noted. At this time most likely due to dehydration. He is currently a chemo patient does receive fluids and is due for his next dose tomorrow. At this time Dr. Araya spoke with Dr. Kunz and we did inform him of the CT results as well as laboratory. At this time he will follow-up with the patient outpatient. Patient is feeling much better in the room. He is found to be mildly hypertensive we did discuss that he did not take his hypertensive medications today and to take them when he goes home. We did discuss the CAT scan in detail and Dr. Kunz is comfortable with follow-up outpatient Brand[facility]. We will discharge him at this time. He is feeling comfortable with this plan. As well as the . All questions have been answered. Return parameters were discussed. - Lab Data Result diagrams: 06/26/18 08:51 06/26/18 08:51 Lab Results 06/26/18 06/26/18 06/26/18 Range/Units 08:50 08:51 08:51 WBC 1.3 L* (3.8-10.6) k/uL RBC 3.97 L (4.30-5.90) m/uL Hgb 13.1 (13.0-17.5) gm/dL Hct 39.1 (39.0-53.0) % MCV 98.5 (80.0-100.0) fL MCH 33.1 (25.0-35.0) pg MCHC 33.6 (31.0-37.0) g/dL RDW 13.5 (11.5-15.5) % Plt Count 169 D (150-450) k/uL Neutrophils % 25 % Lymphocytes % 58 % Monocytes % 3 % Eosinophils % 10 % Basophils % 1 % Neutrophils # 0.3 L (1.3-7.7) k/uL Lymphocytes # 0.8 L (1.0-4.8) k/uL Monocytes # 0.0 (0-1.0) k/uL Eosinophils # 0.1 (0-0.7) k/uL Basophils # 0.0 (0-0.2) k/uL Manual Slide Review Performed RBC Morphology Normal PT (9.0-12.0) sec INR (<1.2) APTT (22.0-30.0) sec Sodium 137 (137-145) mmol/L Potassium 4.1 (3.5-5.1) mmol/L Chloride 104 (98-107) mmol/L Carbon Dioxide 25 (22-30) mmol/L Anion Gap 8 mmol/L BUN 11 (9-20) mg/dL Creatinine 0.78 (0.66-1.25) mg/dL Est GFR (CKD-EPI)AfAm >90 (>60 ml/min/1.73 sqM) Est GFR (CKD-EPI)NonAf 86 (>60 ml/min/1.73 sqM) Glucose 123 H (74-99) mg/dL Plasma Lactic Acid Moisés (0.7-2.0) mmol/L Calcium 8.9 (8.4-10.2) mg/dL Phosphorus 2.3 L (2.5-4.5) mg/dL Magnesium 1.8 (1.6-2.3) mg/dL Total Bilirubin 0.9 (0.2-1.3) mg/dL AST 39 (17-59) U/L ALT 62 (21-72) U/L Alkaline Phosphatase 153 H (38-126) U/L Total Protein 5.4 L (6.3-8.2) g/dL Albumin 2.8 L (3.5-5.0) g/dL Amylase 36 (30-110) U/L Lipase <10 L (23-300) U/L Urine Color Yellow Urine Appearance Cloudy (Clear) Urine pH 8.5 H (5.0-8.0) Ur Specific [place] 1.012 (1.001-1.035) Urine Protein Trace H (Negative) Urine Glucose (UA) Negative (Negative) Urine Ketones Negative (Negative) Urine Blood Negative (Negative) Urine Nitrite Negative (Negative) Urine Bilirubin Negative (Negative) Urine Urobilinogen <2.0 (<2.0) mg/dL Ur Leukocyte Esterase Negative (Negative) Urine RBC 1 (0-5) /hpf Urine WBC 1 (0-5) /hpf Ur Squamous Epith Cells 1 (0-4) /hpf Amorphous Sediment Rare H (None) /hpf Urine Mucus Rare H (None) /hpf 06/26/18 06/26/18 Range/Units 08:51 08:51 WBC (3.8-10.6) k/uL RBC (4.30-5.90) m/uL Hgb (13.0-17.5) gm/dL Hct (39.0-53.0) % MCV (80.0-100.0) fL MCH (25.0-35.0) pg MCHC (31.0-37.0) g/dL RDW (11.5-15.5) % Plt Count (150-450) k/uL Neutrophils % % Lymphocytes % % Monocytes % % Eosinophils % % Basophils % % Neutrophils # (1.3-7.7) k/uL Lymphocytes # (1.0-4.8) k/uL Monocytes # (0-1.0) k/uL Eosinophils # (0-0.7) k/uL Basophils # (0-0.2) k/uL Manual Slide Review RBC Morphology PT 10.7 (9.0-12.0) sec INR 1.1 (<1.2) APTT 26.3 (22.0-30.0) sec Sodium (137-145) mmol/L Potassium (3.5-5.1) mmol/L Chloride (98-107) mmol/L Carbon Dioxide (22-30) mmol/L Anion Gap mmol/L BUN (9-20) mg/dL Creatinine (0.66-1.25) mg/dL Est GFR (CKD-EPI)AfAm (>60 ml/min/1.73 sqM) Est GFR (CKD-EPI)NonAf (>60 ml/min/1.73 sqM) Glucose (74-99) mg/dL Plasma Lactic Acid Moisés 2.1 H* (0.7-2.0) mmol/L Calcium (8.4-10.2) mg/dL Phosphorus (2.5-4.5) mg/dL Magnesium (1.6-2.3) mg/dL Total Bilirubin (0.2-1.3) mg/dL AST (17-59) U/L ALT (21-72) U/L Alkaline Phosphatase (38-126) U/L Total Protein (6.3-8.2) g/dL Albumin (3.5-5.0) g/dL Amylase (30-110) U/L Lipase (23-300) U/L Urine Color Urine Appearance (Clear) Urine pH (5.0-8.0) Ur Specific [place] (1.001-1.035) Urine Protein (Negative) Urine Glucose (UA) (Negative) Urine Ketones (Negative) Urine Blood (Negative) Urine Nitrite (Negative) Urine Bilirubin (Negative) Urine Urobilinogen (<2.0) mg/dL Ur Leukocyte Esterase (Negative) Urine RBC (0-5) /hpf Urine WBC (0-5) /hpf Ur Squamous Epith Cells (0-4) /hpf Amorphous Sediment (None) /hpf Urine Mucus (None) /hpf - Radiology Data Radiology results: report reviewed, image reviewed Disposition Clinical Impression: Ureteral calculus, Pancreatic cancer, Hypertension, Dehydration, Neutropenia Disposition: HOME SELF-CARE Condition: Stable Instructions: Kidney Stones (ED), Dehydration (ED) Additional Instructions: Please use medication as discussed. Please follow up with family doctor if symptoms have not improved over the next two days. Please return to the emergency room if your symptoms increase or worsen or for any other concerns. Please follow-up with Dr. Kunz as discussed. Prescriptions: Ketorolac [Toradol] 10 mg PO Q6HR #20 tab Ondansetron Odt [Zofran ODT] 4 mg PO Q8HR PRN #20 tab PRN Reason: Nausea Tamsulosin [Flomax] 0.4 mg PO DAILY #5 cap Is patient prescribed a controlled substance at d/c from ED?: No Referrals: Leodan Tadeo MD [Primary Care Provider] - 1-2 days Ramón Kunz MD [STAFF PHYSICIAN] - 1-2 days Time of Disposition: 11:24
[2018-06-26 09:18] LABS: Basophils % (A) 1 %; Eosinophils # (A) 0.1 k/uL (0-0.7); Eosinophils % (A) 10 %; HCT 39.1 % (39.0-53.0); HGB 13.1 gm/dL (13.0-17.5); Lymphocytes # (A) 0.8 k/uL (1.0-4.8); Lymphocytes % (A) 58 %; MCH 33.1 pg (25.0-35.0); MCHC 33.6 g/dL (31.0-37.0); MCV 98.5 fL (80.0-100.0); Mean Platelet Volume 6.8; Monocytes % (A) 3 %; Neutrophils # (A) 0.3 k/uL (1.3-7.7); Neutrophils % (A) 25 %; RBC 3.97 m/uL (4.30-5.90); RDW 13.5 % (11.5-15.5)
[2018-06-26 09:19] LABS: Amorphous Sediment,Urine Rare /hpf; Appearance,Urine Cloudy (Clear); Bilirubin,Urine Negative (Negative); Blood,Urine Negative (Negative); Color,Urine Yellow; Glucose,Urine (UA) Negative (Negative); Ketones,Urine Negative (Negative); Leukocyte Esterase,Urine Negative (Negative); Mucus,Urine Rare /hpf; Nitrite,Urine Negative (Negative); PH, Urine 8.5 (5.0-8.0); Protein,Urine Trace (Negative); RBC,Urine 1 /hpf (0-5); Specific Gravity,Urine 1.012 (1.001-1.035); Squamous Epithelial Cell,Urine 1 /hpf (0-4); Urobilinogen,Urine <2.0 mg/dL (<2.0); WBC,Urine 1 /hpf (0-5)
[2018-06-26 09:20] LABS: Platelet Count 169 k/uL (150-450); WBC 1.3 k/uL (3.8-10.6)
[2018-06-26 09:21] LABS: ALT 62 U/L (21-72); AST 39 U/L (17-59); Albumin 2.8 g/dL (3.5-5.0); Alkaline Phosphatase 153 U/L (38-126); Amylase 36 U/L (30-110); Anion Gap 8 mmol/L; Blood Urea Nitrogen 11 mg/dL (9-20); Calcium 8.9 mg/dL (8.4-10.2); Carbon Dioxide 25 mmol/L (22-30); Chloride 104 mmol/L (98-107); Glucose 123 mg/dL (74-99); Lipase <10 U/L (23-300); Magnesium 1.8 mg/dL (1.6-2.3); Phosphorus 2.3 mg/dL (2.5-4.5); Potassium 4.1 mmol/L (3.5-5.1); Sodium 137 mmol/L (137-145); Total Bilirubin 0.9 mg/dL (0.2-1.3); Total Protein 5.4 g/dL (6.3-8.2)
[2018-06-26 09:22] LABS: INR 1.1 (<1.2); Partial Thromboplastin Time 26.3 sec (22.0-30.0); Prothrombin Time 10.7 sec (9.0-12.0)
--- NOTE | 2018-06-26 10:28 | CT ---
EXAMINATION TYPE: CT abdomen pelvis w con DATE OF EXAM: 06/26/2018 COMPARISON: 10/16/2017 HISTORY: 77-year-old male Severe Abdominal pain. Currently doing treatment for pancreatic cancer TECHNIQUE: Contiguous axial scanning of the abdomen and pelvis following administration of 100 ml Iso denise 300 IV contrast. Delayed images through the kidneys and coronal/sagittal reconstructions perform ed. CT DLP: 401.6 mGycm Automated exposure control for dose reduction was used. FINDINGS: Heart normal size without pericardial effusion. Coronary vessel calcifications are present. Lung base s clear without pleural effusion. No focal liver lesion. There is new dilatation of the bile duct measuring 1.5 cm with mild intrahepat ic biliary ductal dilatation as well preferentially involving the left liver lobe. There is constrict ion and occlusion of the upper SMV. Moderate narrowing at the distal splenic vein at the portal venou s confluence. The main, right, and left portal veins remain patent. New mild abdominal ascites. There is diffuse anasarca-type change with edematous fat stranding throug hout the subcutaneous and intra-abdominal fat. Adrenal glands, spleen appear within normal limits. Multiple renal cysts redemonstrated measuring up to 1.8 cm on the left. There is mild right-sided pelvicaliectasis. Nonobstructive 1 cm right renal calculus. 3 mm calcificat ion at the right UVJ. Heterogeneous pancreatic head mass redemonstrated measuring approximately 4.0 cm. This may be slightl y smaller versus 5.2 cm, previously. However, there are technical differences in the exam with the pr ior study being a noncontrast exam. There is atrophy of the pancreatic body and tail with a dilatatio n of the main pancreatic duct and likely dilated side branch radical in the pancreatic body measuring 2.2 cm. Small peripancreatic lymph nodes located behind the pancreatic head measuring 8 mm and in th e portacaval region measuring 7 mm and seems to have been present previously. No dilated small bowel or free air. Scattered mild to moderate stool. Bladder partially distended. Pr ostate gland measures 4.9 cm wide. Moderate pelvic free fluid tracking from the abdomen. Multiple pel jason phleboliths. Bones: Degenerative changes at the hips, SI joints, and lower lumbar spine. No osseous destructive pr ocess. IMPRESSION: 1. A 3 MM CALCULUS AT THE RIGHT UVJ WITH MILD OBSTRUCTIVE UROPATHY. 2. DIFFUSE ANASARCA TYPE CHANGE WITH MILD ABDOMINAL AND MODERATE PELVIC ASCITES FLUID, NEW FROM PRIOR . 3. REDEMONSTRATED. PANCREATIC HEAD MASS WITH PROXIMAL PANCREATIC ATROPHY AND DUCTAL DILATATION. THE M ASS MAY BE SLIGHTLY SMALLER AT 4.0 CM VERSUS 5.2 CM, PREVIOUSLY. 4. HOWEVER, THE MASS CONTINUES TO PINCH OFF/OCCLUDE THE UPPER SMV AND THERE IS NEW BILIARY DUCTAL DI LATATION SECONDARY TO THE MASS.
[2018-06-26 10:43] VITALS: BP 176/74; PULSE 54
[2018-06-26 11:39] VITALS: TEMP 97.6
== END 2018-06-26 11:37 | disposition home or self-care (01) ==
LOC: EC 08:25
DX: N20.1 Calculus of ureter (principal); E86.0 Dehydration; D70.9 Neutropenia, unspecified; I10 Essential (primary) hypertension; R74.0 Nonspecific elevation of levels of transaminase and lactic acid dehydrogenase [LDH]; C25.9 Malignant neoplasm of pancreas, unspecified; K21.9 Gastro-esophageal reflux disease without esophagitis; E78.5 Hyperlipidemia, unspecified; I25.10 Atherosclerotic heart disease of native coronary artery without angina pectoris; M19.90 Unspecified osteoarthritis, unspecified site; Z87.891 Personal history of nicotine dependence; Z88.1 Allergy status to other antibiotic agents; Z79.82 Long term (current) use of aspirin; Z79.899 Other long term (current) drug therapy; Z85.828 Personal history of other malignant neoplasm of skin; Z98.890 Other specified postprocedural states; Z90.49 Acquired absence of other specified parts of digestive tract; Z92.21 Personal history of antineoplastic chemotherapy; Z80.0 Family history of malignant neoplasm of digestive organs; Z83.2 Family history of diseases of the blood and blood-forming organs and certain disorders involving the immune mechanism
CPT/HCPCS: 99284; 96374; 96375; 96376; 96361 ×2; 36415; 80053; 82150; 83605; 83690; 83735; 84100; 85025; 85610; 85730; 81001; 87040; 87086; 74177; J2405; J1170; Q9967

== ENCOUNTER 2018-08-12 19:19 | Inpatient (IN) | payer MEDICARE ==
[2018-08-12] MEDS ORDERED: SODIUM CHLORIDE 0.9% 500 ML 500 ML IV STA (19:57)
--- NOTE | 2018-08-12 20:01 | ED ---
Nausea/Vomiting/Diarrhea HPI <JohnsonSaul - Last Filed: 08/12/18 22:06> - General Source: patient Mode of arrival: wheelchair Limitations: no limitations <Kay Park - Last Filed: 08/12/18 22:14> - General Chief complaint: Nausea/Vomiting/Diarrhea Stated complaint: Diarrhea Time Seen by Provider: 08/12/18 19:44 - History of Present Illness Initial comments: 78-year-old male patient with past medical history significant for pancreatic cancer diagnosed in July 2017, currently receiving chemotherapy treatments, presents to the emergency department today for complaints of diarrhea. Patient states that he has had watery bowel movements several times daily since . Patient states he is having generalized abdominal cramping and pain. Patient denies any fevers or chills with this. States that his last infusion of chemotherapy was on 08/02/2018. He did receive infusion of IV fluids today at home from home care. Patient denies any recent antibiotic use or recent admission to the hospital. He denies any recent travel or sick contacts. He is not having any vomiting with this. He denies any hematochezia or melena. States he has been taking Imodium without relief. Patient states that he did have an acute episode of weakness today and nearly fell in the bathroom but was able to catch himself. He denies any injuries from the fall. Patient denies any recent rash, shortness breath, chest pain, back pain, numbness, tingling, dizziness, hematuria, dysuria, urinary urgency, urinary frequency, headache, visual changes, or any other complaints. (Kay Park) - Related Data Home Medications Medication Instructions Recorded Confirmed Isosorbide Mononitrate ER [Imdur] 30 mg PO BID 02/24/14 08/12/18 Atenolol 25 mg PO DAILY 03/08/14 08/12/18 Lisinopril 5 mg PO DAILY 03/08/14 08/12/18 Nitroglycerin Sl Tabs [Nitrostat] 0.4 mg SL Q5M PRN 03/08/14 08/12/18 Multivitamins, Thera [Multivitamin 1 tab PO DAILY 02/09/18 08/12/18 (formulary)] Aspirin 162.5 mg PO DAILY 05/01/18 08/12/18 Atorvastatin [Lipitor] 40 mg PO DAILY 05/01/18 08/12/18 Famotidine [Pepcid] 20 mg PO DAILY 05/01/18 08/12/18 Pantoprazole Sodium [Protonix] 40 mg PO DAILY 05/01/18 08/12/18 Potassium Chloride ER [K-Dur 20] 20 meq PO BID 05/01/18 08/12/18 Previous Rx's Medication Instructions Recorded Magnesium 200 mg PO DAILY #14 tablet 02/09/18 Ketorolac [Toradol] 10 mg PO Q6HR #20 tab 06/26/18 Ondansetron Odt [Zofran ODT] 4 mg PO Q8HR PRN #20 tab 06/26/18 Tamsulosin [Flomax] 0.4 mg PO DAILY #5 cap 06/26/18 Allergies Allergy/AdvReac Type Severity Reaction Status Date / Time cefepime Allergy Intermediate Rash/Hives Verified 08/12/18 19:34 Review of Systems ROS Other: All systems not noted in ROS Statement are negative. <Saul Ornelas - Last Filed: 08/12/18 22:06> ROS Other: All systems not noted in ROS Statement are negative. <Kay Park - Last Filed: 08/12/18 22:14> ROS Statement: Those systems with pertinent positive or pertinent negative responses have been documented in the HPI. Past Medical History Past Medical History: Coronary Artery Disease (CAD), Cancer, GERD/Reflux, Hyperlipidemia, Hypertension, Osteoarthritis (OA), Renal Disease Additional Past Medical History / Comment(s): Pancreatic CA- recent dx pt recieved chemo 2--18 has had 9 tx so far. skin cancer with removal, nephrolithiasis with surgery, sinus problems at times, ulcerative colitis in the 1970s, back pain/sciatica, past numbness/tingling L arm-pt stated was d/t chemo, uti, History of Any Multi-Drug Resistant Organisms: None Reported Past Surgical History: Cholecystectomy, Heart Catheterization With Stent, Tonsillectomy Additional Past Surgical History / Comment(s): PCI/stent x5, pilonidial cyst removed, hemohroidectomy, EGD/colonoscopy that nicked his bowel followed by open laparotomy done at [facility], cystoscopy/kidney stone removal, skin cancer removed from R side of neck, bilateral cataract removals, port placement rt upper chest Past Anesthesia/Blood Transfusion Reactions: No Reported Reaction Date of Last Stent Placement:: 2012 Past Psychological History: No Psychological Hx Reported Smoking Status: Former smoker Past Alcohol Use History: None Reported Past Drug Use History: None Reported - Past Family History Father Additional Family Medical History / Comment(s): Father at age 84 from old age with no major medical problems. Mother Additional Family Medical History / Comment(s): Mother from leukemia. Brother(s) Additional Family Medical History / Comment(s): She has a brother that from stomach cancer. Patient has 3 sisters with no major medical problems. Patient has 3 children with no major medical problems. <Kay Park - Last Filed: 08/12/18 22:14> General Exam Limitations: no limitations General appearance: alert, in no apparent distress, other (This is a well- developed, thin appearing elderly male patient in no acute distress. Vital signs upon presentation are temperature 97.5F, pulse 62, respirations 20, blood pressure 117/63, pulse ox 94% on room air.) Eye exam: Present: normal appearance, PERRL, EOMI. Absent: scleral icterus, conjunctival injection, periorbital swelling ENT exam: Present: normal exam, normal oropharynx, mucous membranes moist Respiratory exam: Present: normal lung sounds bilaterally. Absent: respiratory distress, wheezes, rales, rhonchi, stridor Cardiovascular Exam: Present: regular rate, normal rhythm, normal heart sounds. Absent: systolic murmur, diastolic murmur, rubs, gallop, clicks GI/Abdominal exam: Present: soft, tenderness (generalized mild tenderness), normal bowel sounds. Absent: distended, guarding, rebound, rigid Neurological exam: Present: alert, oriented X3, CN II-XII intact Psychiatric exam: Present: normal affect, normal mood Skin exam: Present: warm, dry, intact, normal color. Absent: rash <Kay Park - Last Filed: 08/12/18 22:14> Vital Signs 08/12/18 08/12/18 19:22 21:00 Temperature 97.5 F L 97.9 F Pulse Rate 62 75 Respiratory 20 18 Rate Blood Pressure 117/63 155/79 O2 Sat by Pulse 94 L 95 Oximetry Medical Decision Making - Lab Data Result diagrams: 08/12/18 19:54 08/12/18 20:09 <Saul Ornelas - Last Filed: 08/12/18 22:06> - Lab Data Result diagrams: 08/12/18 19:54 08/12/18 20:09 <Kay Park - Last Filed: 08/12/18 22:14> - Medical Decision Making Medical decision making; was an 78-year-old male here with family. The patient had an episode of near syncopal episode. He had multiple episodes of diarrhea today he is on his third treatment of chemotherapy finished the past 10 days ago. He has pancreatic cancer for the past year. The patient was told that the chemo may cause diarrhea. He has syncopal near syncopal episode at home today. He was also at the doctor's office today and received IV hydration and despite that the patient still of the episode today. Patient's feeling slightly better at this time. He received IV hydration in emergency room. White count 3.1 hemoglobin 10 hematocrit 33 potassium 3.1. He was given 40 mEq potassium by mouth. BUN 11 creatinine 0.7 to the GFR of 88. Amylase lipase low. C. diff is negative. I spoke with the patient's oncologist teen. They will consult after admission. The patient was admitted to Dr. Lundberg. Dr. Ornelas (Saul Ornelas) I did see and evaluate the patient. Physical exam is unremarkable. He is neurologically intact. Patient labs did reveal evidence of hypokalemia at 3.1, replaced with 40 mEq by mouth. Patient did have a near syncopal episode at home even after having infusion of IV fluids. Patient will be admitted for IV hydration. Oncologist will be consulted. Patient admitted to Dr. Lundberg. (Kay Park) - Lab Data Lab Results 08/12/18 08/12/18 08/12/18 Range/Units 19:36 19:54 20:07 WBC 3.1 L (3.8-10.6) k/uL RBC 3.16 L (4.30-5.90) m/uL Hgb 10.6 L (13.0-17.5) gm/dL Hct 33.0 L (39.0-53.0) % MCV 104.6 H (80.0-100.0) fL MCH 33.7 (25.0-35.0) pg MCHC 32.2 (31.0-37.0) g/dL RDW 17.7 H (11.5-15.5) % Plt Count 153 D (150-450) k/uL Neutrophils % (Manual) 59 % Band Neutrophils % 8 % Lymphocytes % (Manual) 23 % Monocytes % (Manual) 8 % Eosinophils % (Manual) 2 % Neutrophils # (Manual) 2.00 (1.3-7.7) k/uL Lymphocytes # (Manual) 0.71 L (1.0-4.8) k/uL Monocytes # (Manual) 0.25 (0-1.0) k/uL Eosinophils # (Manual) 0.06 (0-0.7) k/uL Nucleated RBCs 0 (0-0) /100 WBC Manual Slide Review Performed Polychromasia Present Anisocytosis Slight Macrocytosis Moderate Sodium (137-145) mmol/L Potassium (3.5-5.1) mmol/L Chloride (98-107) mmol/L Carbon Dioxide (22-30) mmol/L Anion Gap mmol/L BUN (9-20) mg/dL Creatinine (0.66-1.25) mg/dL Est GFR (CKD-EPI)AfAm (>60 ml/min/1.73 sqM) Est GFR (CKD-EPI)NonAf (>60 ml/min/1.73 sqM) Glucose (74-99) mg/dL Calcium (8.4-10.2) mg/dL Total Bilirubin (0.2-1.3) mg/dL AST (17-59) U/L ALT (21-72) U/L Alkaline Phosphatase (38-126) U/L Total Protein (6.3-8.2) g/dL Albumin (3.5-5.0) g/dL Amylase (30-110) U/L Lipase (23-300) U/L Urine Color Yellow Urine Appearance Clear (Clear) Urine pH 5.0 (5.0-8.0) Ur Specific [place] 1.015 (1.001-1.035) Urine Protein 1+ H (Negative) Urine Glucose (UA) Negative (Negative) Urine Ketones 1+ H (Negative) Urine Blood Negative (Negative) Urine Nitrite Negative (Negative) Urine Bilirubin Negative (Negative) Urine Urobilinogen <2.0 (<2.0) mg/dL Ur Leukocyte Esterase Negative (Negative) Urine RBC 3 (0-5) /hpf Urine WBC 4 (0-5) /hpf Ur Squamous Epith Cells 1 (0-4) /hpf Urine Bacteria Rare H (None) /hpf Hyaline Casts 4 H (0-2) /lpf Urine Mucus Occasional H (None) /hpf C. difficile (EIA) Intrp Negative (Negative) 08/12/18 Range/Units 20:09 WBC (3.8-10.6) k/uL RBC (4.30-5.90) m/uL Hgb (13.0-17.5) gm/dL Hct (39.0-53.0) % MCV (80.0-100.0) fL MCH (25.0-35.0) pg MCHC (31.0-37.0) g/dL RDW (11.5-15.5) % Plt Count (150-450) k/uL Neutrophils % (Manual) % Band Neutrophils % % Lymphocytes % (Manual) % Monocytes % (Manual) % Eosinophils % (Manual) % Neutrophils # (Manual) (1.3-7.7) k/uL Lymphocytes # (Manual) (1.0-4.8) k/uL Monocytes # (Manual) (0-1.0) k/uL Eosinophils # (Manual) (0-0.7) k/uL Nucleated RBCs (0-0) /100 WBC Manual Slide Review Polychromasia Anisocytosis Macrocytosis Sodium 139 (137-145) mmol/L Potassium 3.1 L (3.5-5.1) mmol/L Chloride 110 H (98-107) mmol/L Carbon Dioxide 20 L (22-30) mmol/L Anion Gap 9 mmol/L BUN 11 (9-20) mg/dL Creatinine 0.72 (0.66-1.25) mg/dL Est GFR (CKD-EPI)AfAm >90 (>60 ml/min/1.73 sqM) Est GFR (CKD-EPI)NonAf 88 (>60 ml/min/1.73 sqM) Glucose 81 (74-99) mg/dL Calcium 8.1 L (8.4-10.2) mg/dL Total Bilirubin 0.6 (0.2-1.3) mg/dL AST 18 (17-59) U/L ALT 34 (21-72) U/L Alkaline Phosphatase 174 H (38-126) U/L Total Protein 4.0 L (6.3-8.2) g/dL Albumin 2.0 L (3.5-5.0) g/dL Amylase <30 L (30-110) U/L Lipase <10 L (23-300) U/L Urine Color Urine Appearance (Clear) Urine pH (5.0-8.0) Ur Specific [place] (1.001-1.035) Urine Protein (Negative) Urine Glucose (UA) (Negative) Urine Ketones (Negative) Urine Blood (Negative) Urine Nitrite (Negative) Urine Bilirubin (Negative) Urine Urobilinogen (<2.0) mg/dL Ur Leukocyte Esterase (Negative) Urine RBC (0-5) /hpf Urine WBC (0-5) /hpf Ur Squamous Epith Cells (0-4) /hpf Urine Bacteria (None) /hpf Hyaline Casts (0-2) /lpf Urine Mucus (None) /hpf C. difficile (EIA) Intrp (Negative) Disposition <Saul Ornelas - Last Filed: 08/12/18 22:06> Decision to Admit Reason: Admit from EC Decision Date: 08/12/18 Decision Time: 22:14 <Kay Park - Last Filed: 08/12/18 22:14> Clinical Impression: Diarrhea, Dehydration, Syncope, near Disposition: ADMITTED IP TO THIS [facility] Condition: Serious Referrals: Leodan Tadeo MD [Primary Care Provider] - 1-2 days
[2018-08-12 20:18] LABS: Appearance,Urine Clear (Clear); Bacteria,Urine Rare /hpf; Bilirubin,Urine Negative (Negative); Blood,Urine Negative (Negative); Color,Urine Yellow; Glucose,Urine (UA) Negative (Negative); Hyaline Casts,Urine 4 /lpf (0-2); Ketones,Urine 1+ (Negative); Leukocyte Esterase,Urine Negative (Negative); Mucus,Urine Occasional /hpf; Nitrite,Urine Negative (Negative); Protein,Urine 1+ (Negative); RBC,Urine 3 /hpf (0-5); Specific Gravity,Urine 1.015 (1.001-1.035); Squamous Epithelial Cell,Urine 1 /hpf (0-4); Urobilinogen,Urine <2.0 mg/dL (<2.0); WBC,Urine 4 /hpf (0-5)
[2018-08-12 20:23] LABS: ALT 34 U/L (21-72); AST 18 U/L (17-59); Alkaline Phosphatase 174 U/L (38-126); Amylase <30 U/L (30-110); Anion Gap 9 mmol/L; Blood Urea Nitrogen 11 mg/dL (9-20); Calcium 8.1 mg/dL (8.4-10.2); Carbon Dioxide 20 mmol/L (22-30); Chloride 110 mmol/L (98-107); Glucose 81 mg/dL (74-99); Lipase <10 U/L (23-300); Potassium 3.1 mmol/L (3.5-5.1); Sodium 139 mmol/L (137-145); Total Bilirubin 0.6 mg/dL (0.2-1.3)
[2018-08-12 20:57] LABS: Anisocytosis Slight; HGB 10.6 gm/dL (13.0-17.5); MCH 33.7 pg (25.0-35.0); MCHC 32.2 g/dL (31.0-37.0); MCV 104.6 fL (80.0-100.0); Macrocytosis Moderate; Mean Platelet Volume 7.6; RBC 3.16 m/uL (4.30-5.90); RDW 17.7 % (11.5-15.5); WBC 3.1 k/uL (3.8-10.6)
[2018-08-12] MEDS ORDERED: POTASSIUM CHLORIDE ER 20 MEQ TAB.ER PO STA (20:58)
[2018-08-12 21:04] LABS: Platelet Count 153 k/uL (150-450)
[2018-08-12 21:23] LABS: Band Neutrophils % 8 %; Eosinophils # (M) 0.06 k/uL (0-0.7); Lymphocytes # (M) 0.71 k/uL (1.0-4.8); Monocytes # (M) 0.25 k/uL (0-1.0); Neutrophils % (M) 59 %; Nucleated Red Blood Cells 0 /100 WBC (0-0); Total Cells Counted 100
[2018-08-12 21:24] LABS: Polychromasia Present
[2018-08-12] MEDS ORDERED: NALOXONE 0.4 MG/ML 1 ML VIAL IV PRN (22:06)
[2018-08-12] MEDS ORDERED: DIPHENOX-ATROP 2.5-0.025 MG 1 EACH TAB PO PRN (22:08)
[2018-08-12] MEDS ORDERED: DIPHENOX-ATROP 2.5-0.025 MG 1 EACH TAB PO STA (22:08)
[2018-08-12] MEDS: SODIUM CHLORIDE 0.9% 1,000 ML IV SCH (23:27)
[2018-08-13 10:06] LABS: ALT 27 U/L (21-72); AST 19 U/L (17-59); Alkaline Phosphatase 177 U/L (38-126); Anion Gap 8 mmol/L; Blood Urea Nitrogen 11 mg/dL (9-20); Calcium 8.3 mg/dL (8.4-10.2); Carbon Dioxide 23 mmol/L (22-30); Chloride 110 mmol/L (98-107); Glucose 74 mg/dL (74-99); Potassium 3.2 mmol/L (3.5-5.1); Sodium 141 mmol/L (137-145); Total Bilirubin 0.5 mg/dL (0.2-1.3); Total Protein 4.2 g/dL (6.3-8.2)
[2018-08-13 10:11] LABS: Anisocytosis Slight; HCT 34.7 % (39.0-53.0); Hypochromasia Slight; MCH 33.2 pg (25.0-35.0); MCHC 31.7 g/dL (31.0-37.0); MCV 104.9 fL (80.0-100.0); Macrocytosis Moderate; Mean Platelet Volume 7.9; Platelet Count 223 k/uL (150-450); RBC 3.31 m/uL (4.30-5.90); RDW 17.3 % (11.5-15.5); WBC 6.3 k/uL (3.8-10.6)
[2018-08-13] MEDS ORDERED: POTASSIUM CHLORIDE ER 20 MEQ TAB.ER PO STA (11:03)
[2018-08-13 11:19] LABS: Band Neutrophils % 8 %; Basophils # (M) 0.06 k/uL (0-0.2); Eosinophils # (M) 0.13 k/uL (0-0.7); Lymphocytes # (M) 0.88 k/uL (1.0-4.8); Monocytes # (M) 0.88 k/uL (0-1.0); Neutrophils % (M) 61 %; Nucleated Red Blood Cells 0 /100 WBC (0-0); Total Cells Counted 100
[2018-08-13 11:21] LABS: Polychromasia Present
[2018-08-13] MEDS: SODIUM CHLORIDE 0.9% 1,000 ML IV SCH (14:09)
--- NOTE | 2018-08-13 15:47 | P.CONS ---
History of Present Illness - Reason for Consult Consult date: 08/13/18 pancreatic cancer on chemotherapy Requesting physician: Kamlesh Lundberg - Chief Complaint Weakness, near syncope - History of Present Illness Mr. Leger is a very pleasant 78-year-old gentleman with a history of pancreatic cancer who is here for dehydration from diarrhea. He is a patient of Dr. Kunz. His story begins in July 2017 when he presented to the ER with mid/ lower abdominal pain. Computed tomography scan at that time revealed a 2.1 x 2.5 x 2.5 cm mass in the head of the pancreas. He was transferred to [facility] where review of the images by their radiologist showed a possible larger lesion at 3.3 x 2.7 cm. Baseline CA-19-9 was 581. He underwent EUS by Dr. Hendrix on 08/02/17 with biopsy, pathology positive for adenocarcinoma. Course was complicated by ruptured duodenum requiring laparotomy with repair on 08/02/17. After recovering from surgery he was started on neoadjuvant chemotherapy with Gemzar and Abraxane on 10/14/17 however he tolerated this poorly with severe weakness and need of hydration at home. He also required blood transfusion during his treatment after his third cycle he had a restaging CT which showed possible minimal changes although his CA-19-9 had improved and was normal at that point. This was in 12/20/17. He subsequently underwent chemotherapy with radiation with the [place] which she completed on 03/30/18. He did have additional weight loss during that time. Restaging scans from 05/30/18 showed progressive disease with increasing size of the pancreatic head mass and new onset ascites. He was subsequently started on 5-FU/Onivyde, and has completed 5 cycles so far. Last cycle was on 08/02/18. He has tolerated this regimen relatively well up until the cycle with minimal diarrhea. The cycle however has resulted in much more severe diarrhea. He was seen in the office on 08/09/18 and did receive hydration at that point due to feeling dehydrated from the severe diarrhea. He continued to have diarrhea and yesterday presented to the ER after a near syncopal episode. No fevers, nausea, vomiting , or abdominal pain. Labs in the ER showed hypokalemia at 3.1. He was started on hydration and admitted for further monitoring. C. diff was negative. He continues to have diarrhea, about 4-5 bowel movements already today, watery. No other complaints. Review of Systems All systems: negative Constitutional: Reports as per HPI Past Medical History Past Medical History: Coronary Artery Disease (CAD), Cancer, GERD/Reflux, Hyperlipidemia, Hypertension, Osteoarthritis (OA), Renal Disease Additional Past Medical History / Comment(s): Pancreatic CA- recent dx pt recieved chemo 218 has had 9 tx so far. skin cancer with removal, nephrolithiasis with surgery, sinus problems at times, ulcerative colitis in the 1970s, back pain/sciatica, past numbness/tingling L arm-pt stated was d/t chemo, uti, History of Any Multi-Drug Resistant Organisms: None Reported Past Surgical History: Cholecystectomy, Heart Catheterization With Stent, Tonsillectomy Additional Past Surgical History / Comment(s): PCI/stent x5, pilonidial cyst removed, hemohroidectomy, EGD/colonoscopy that nicked his bowel followed by open laparotomy done at [facility], cystoscopy/kidney stone removal, skin cancer removed from R side of neck, bilateral cataract removals, port placement rt upper chest Past Anesthesia/Blood Transfusion Reactions: No Reported Reaction Date of Last Stent Placement:: 2012 Past Psychological History: No Psychological Hx Reported Additional Psychological History / Comment(s): Pt resides with his spouse. He uses a cane /waler as needed. He has not driven for about a month since diagnosis of pancreatic cancer. drives pt. has [facility] care nurse, pt/ ot 2x a week. Smoking Status: Former smoker Past Alcohol Use History: None Reported Additional Past Alcohol Use History / Comment(s): It was a smoker of one pack per week for 20-25 years and quit in 1983. He denies any medical marijuana, marijuana, street drug use. He used to drink an occasional beer. He lives at home with his . Past Drug Use History: None Reported - Past Family History Father Additional Family Medical History / Comment(s): Father at age 84 from old age with no major medical problems. Mother Additional Family Medical History / Comment(s): Mother from leukemia. Brother(s) Additional Family Medical History / Comment(s): She has a brother that from stomach cancer. Patient has 3 sisters with no major medical problems. Patient has 3 children with no major medical problems. Medications and Allergies Home Medications Medication Instructions Recorded Confirmed Type Isosorbide Mononitrate ER [Imdur] 30 mg PO DAILY 02/24/14 08/13/18 History Atenolol 25 mg PO DAILY 03/08/14 08/13/18 History Nitroglycerin Sl Tabs [Nitrostat] 0.4 mg SL Q5M PRN 03/08/14 08/13/18 History Multivitamins, Thera [Multivitamin 1 tab PO DAILY 02/09/18 08/13/18 History (formulary)] Atorvastatin [Lipitor] 40 mg PO DAILY 05/01/18 08/13/18 History Pantoprazole Sodium [Protonix] 40 mg PO DAILY 05/01/18 08/13/18 History Potassium Chloride ER [K-Dur 20] 20 meq PO BID 05/01/18 08/13/18 History Aspirin [Adult Low Dose Aspirin EC] 81 08/13/18 History Magnesium Oxide [Mag-Ox] 250 mg PO DAILY 08/13/18 08/13/18 History amLODIPine [Norvasc] 2.5 mg PO DAILY 08/13/18 08/13/18 History Allergies Allergy/AdvReac Type Severity Reaction Status Date / Time cefepime Allergy Intermediate Rash/Hives Verified 08/12/18 19:34 Physical Exam Vitals: Vital Signs Temp Pulse Pulse Resp BP BP Pulse Ox 08/13/18 12:15 94.5 F L 56 L 18 152/69 95 08/13/18 08:40 83 16 08/13/18 05:00 97.9 F 83 16 141/63 100 08/13/18 00:06 97.8 F 93 16 137/91 94 L 08/12/18 23:11 98 F 90 18 126/58 96 08/12/18 21:00 97.9 F 75 18 155/79 95 08/12/18 19:22 97.5 F L 62 20 117/63 94 L Intake and Output 08/13/18 08/13/18 08/13/18 06:59 14:59 22:59 Intake Total 480 160 Balance 480 160 Intake: IV 480 Sodium Chloride 0.9% 1, 480 000 ml @ 80 mls/hr IV . [id number] [facility] Rx#:[id number] Oral 160 Other: Voiding Method Toilet Toilet # Voids 1 3 # Bowel Movements 3 Weight 61.5 kg General: No acute distress HEENT: EOMI. Mucosa moist. Neck: Neck supple. Lungs: CTAB. No wheezing or rhonchi. Heart: RRR. No lower extremity edema. Abdomen: Soft, nontender, nondistended with positive bowel sounds. MSK: 4/4 strength in all 4 extremities. Neuro: Alert and oriented 3. No obvious gross neurologic deficits. Skin: No jaundice or rash. Psych: Appropriate affect. Results CBC & Chem 7: 08/13/18 08:40 08/13/18 08:40 Labs: Abnormal Lab Results - Last 24 Hours (Table) 08/12/18 08/12/18 08/12/18 Range/Units 19:35 19:54 20:07 WBC 3.1 L (3.8-10.6) k/uL RBC 3.16 L (4.30-5.90) m/uL Hgb 10.6 L (13.0-17.5) gm/dL Hct 33.0 L (39.0-53.0) % MCV 104.6 H (80.0-100.0) fL RDW 17.7 H (11.5-15.5) % Lymphocytes # (Manual) 0.71 L (1.0-4.8) k/uL Potassium (3.5-5.1) mmol/L Chloride (98-107) mmol/L Carbon Dioxide (22-30) mmol/L Calcium (8.4-10.2) mg/dL Alkaline Phosphatase (38-126) U/L Total Protein (6.3-8.2) g/dL Albumin (3.5-5.0) g/dL Amylase (30-110) U/L Lipase (23-300) U/L Urine Protein 1+ H (Negative) Urine Ketones 1+ H (Negative) Urine Bacteria Rare H (None) /hpf Hyaline Casts 4 H (0-2) /lpf Urine Mucus Occasional H (None) /hpf Stool Lactoferrin POSITIVE H (NEGATIVE) 08/12/18 08/13/18 08/13/18 Range/Units 20:09 08:40 08:40 WBC (3.8-10.6) k/uL RBC 3.31 L (4.30-5.90) m/uL Hgb 11.0 L (13.0-17.5) gm/dL Hct 34.7 L (39.0-53.0) % MCV 104.9 H (80.0-100.0) fL RDW 17.3 H (11.5-15.5) % Lymphocytes # (Manual) 0.88 L (1.0-4.8) k/uL Potassium 3.1 L 3.2 L (3.5-5.1) mmol/L Chloride 110 H 110 H (98-107) mmol/L Carbon Dioxide 20 L (22-30) mmol/L Calcium 8.1 L 8.3 L (8.4-10.2) mg/dL Alkaline Phosphatase 174 H 177 H (38-126) U/L Total Protein 4.0 L 4.2 L (6.3-8.2) g/dL Albumin 2.0 L 2.0 L (3.5-5.0) g/dL Amylase <30 L (30-110) U/L Lipase <10 L (23-300) U/L Urine Protein (Negative) Urine Ketones (Negative) Urine Bacteria (None) /hpf Hyaline Casts (0-2) /lpf Urine Mucus (None) /hpf Stool Lactoferrin (NEGATIVE) Microbiology - Last 24 Hours (Table) 08/12/18 19:35 Stool Culture - Preliminary Stool C. diff negative. Assessment and Plan Assessment: 1. Diarrhea, due to chemotherapy 2. Dehydration with near syncope, due to diarrhea 3. Hypokalemia, due to diarrhea 4. Pancreatic cancer, on chemotherapy Plan: Mr. Leger is a very pleasant 78-year-old gentleman with a history of pancreatic cancer currently on chemotherapy with 5-FU/Onivyde, status post cycle 5 on 08/02. He had tolerated the first 4 cycles without difficulty however has been having significant diarrhea with his last cycle. He was hydrated in clinic during his last office visit on 08/09/18 however he continued to have severe diarrhea, watery, leading to a near-syncopal episode, which brought him here. Started on Lomotil. Was taking Imodium home without improvement. No other associated symptoms. C. diff was negative. Labs only reveal hypokalemia. His diarrhea is likely due to chemotherapy, Onivyde. Will hold chemotherapy until his diarrhea resolves. Lomotil every 6 hours when necessary. Will increase this to 2 tabs. Also Imodium as needed. Supplement potassium and hydration. We'll continue to follow the patient with you. Discussed with the patient in detail and he is agreeable to the plan. All of his questions were answered.
--- NOTE | 2018-08-13 17:41 | P.HPIM ---
History of Present Illness H&P Date: 08/13/18 Chief Complaint: Nausea vomiting and diarrhea This is 78 years old male with past medical history significant for pancreatic cancer presents to the hospital with worsening nausea and diarrhea. Patient stated that he has been receiving chemotherapy and most recent course was on Tuesday where patient started to feeding extremely nauseous and having increased frequency of diarrhea over the last 2 days where it became watery without any blood but annoying to the point where patient became extremely dehydrated and weak and decided to come into the emergency department. Patient denied any fever, chills, chest pain, shortness breath dysuria or confusion. Patient stated that he is scheduled to have another course of chemotherapy on Tuesday and that would be his last course before repeating his imaging studies. Patient admitted having ongoing weight loss but not sure how much. In the emergency department patient received IV fluid and was admitted to the medical floor for further evaluation Review of Systems All 14 systems reviewed and negative except as above Past Medical History Past Medical History: Coronary Artery Disease (CAD), Cancer, GERD/Reflux, Hyperlipidemia, Hypertension, Osteoarthritis (OA), Renal Disease Additional Past Medical History / Comment(s): Pancreatic CA- recent dx pt recieved chemo 11-29-17 has had 9 tx so far. skin cancer with removal, nephrolithiasis with surgery, sinus problems at times, ulcerative colitis in the 1970s, back pain/sciatica, past numbness/tingling L arm-pt stated was d/t chemo, uti, History of Any Multi-Drug Resistant Organisms: None Reported Past Surgical History: Cholecystectomy, Heart Catheterization With Stent, Tonsillectomy Additional Past Surgical History / Comment(s): PCI/stent x5, pilonidial cyst removed, hemohroidectomy, EGD/colonoscopy that nicked his bowel followed by open laparotomy done at [facility], cystoscopy/kidney stone removal, skin cancer removed from R side of neck, bilateral cataract removals, port placement rt upper chest Past Anesthesia/Blood Transfusion Reactions: No Reported Reaction Date of Last Stent Placement:: 2012 Past Psychological History: No Psychological Hx Reported Additional Psychological History / Comment(s): Pt resides with his spouse. He uses a cane /waler as needed. He has not driven for about a month since diagnosis of pancreatic cancer. drives pt. 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 Smoking Status: Former smoker Past Alcohol Use History: None Reported Additional Past Alcohol Use History / Comment(s): It was a smoker of one pack per week for 20-25 years and quit in 1983. He denies any medical marijuana, marijuana, street drug use. He used to drink an occasional beer. He lives at home with his . Past Drug Use History: None Reported - Past Family History Father Additional Family Medical History / Comment(s): Father at age 84 from old age with no major medical problems. Mother Additional Family Medical History / Comment(s): Mother from leukemia. Brother(s) Additional Family Medical History / Comment(s): She has a brother that from stomach cancer. Patient has 3 sisters with no major medical problems. Patient has 3 children with no major medical problems. Medications and Allergies Home Medications Medication Instructions Recorded Confirmed Type Isosorbide Mononitrate ER [Imdur] 30 mg PO DAILY 02/24/14 08/13/18 History Atenolol 25 mg PO DAILY 03/08/14 08/13/18 History Nitroglycerin Sl Tabs [Nitrostat] 0.4 mg SL Q5M PRN 03/08/14 08/13/18 History Multivitamins, Thera [Multivitamin 1 tab PO DAILY 02/09/18 08/13/18 History (formulary)] Atorvastatin [Lipitor] 40 mg PO DAILY 05/01/18 08/13/18 History Pantoprazole Sodium [Protonix] 40 mg PO DAILY 05/01/18 08/13/18 History Potassium Chloride ER [K-Dur 20] 20 meq PO BID 05/01/18 08/13/18 History Aspirin [Adult Low Dose Aspirin EC] 81 08/13/18 History Magnesium Oxide [Mag-Ox] 250 mg PO DAILY 08/13/18 08/13/18 History amLODIPine [Norvasc] 2.5 mg PO DAILY 08/13/18 08/13/18 History Allergies Allergy/AdvReac Type Severity Reaction Status Date / Time cefepime Allergy Intermediate Rash/Hives Verified 08/12/18 19:34 Physical Exam Vitals: Vital Signs Temp Pulse Pulse Resp BP BP Pulse Ox 08/13/18 16:00 56 L 18 08/13/18 12:15 94.5 F L 56 L 18 152/69 95 08/13/18 08:40 83 16 08/13/18 05:00 97.9 F 83 16 141/63 100 08/13/18 00:06 97.8 F 93 16 137/91 94 L 08/12/18 23:11 98 F 90 18 126/58 96 08/12/18 21:00 97.9 F 75 18 155/79 95 08/12/18 19:22 97.5 F L 62 20 117/63 94 L Intake and Output 08/13/18 08/13/18 08/13/18 06:59 14:59 22:59 Intake Total 480 160 Balance 480 160 Intake: IV 480 Sodium Chloride 0.9% 1, 480 000 ml @ 80 mls/hr IV . [id number] [facility] Rx#:[id number] Oral 160 Other: Voiding Method Toilet Toilet Toilet # Voids 1 3 3 # Bowel Movements 3 Weight 61.5 kg Lungs : Clear to auscultation bilaterally Heart: Normal S1 and S2 Abdomen: Soft, no tenderness, positive bowel sounds in all 4 quadrants Skin: No new rash Psych: Alert and oriented at baseline mental status Neuro examination revealed intact cranial nerves II-12 Lower extremity no pitting edema Results CBC & Chem 7: 08/13/18 08:40 08/13/18 08:40 Labs: Abnormal Lab Results - Last 24 Hours (Table) 08/12/18 08/12/18 08/12/18 Range/Units 19:35 19:54 20:07 WBC 3.1 L (3.8-10.6) k/uL RBC 3.16 L (4.30-5.90) m/uL Hgb 10.6 L (13.0-17.5) gm/dL Hct 33.0 L (39.0-53.0) % MCV 104.6 H (80.0-100.0) fL RDW 17.7 H (11.5-15.5) % Lymphocytes # (Manual) 0.71 L (1.0-4.8) k/uL Potassium (3.5-5.1) mmol/L Chloride (98-107) mmol/L Carbon Dioxide (22-30) mmol/L Calcium (8.4-10.2) mg/dL Alkaline Phosphatase (38-126) U/L Total Protein (6.3-8.2) g/dL Albumin (3.5-5.0) g/dL Amylase (30-110) U/L Lipase (23-300) U/L Urine Protein 1+ H (Negative) Urine Ketones 1+ H (Negative) Urine Bacteria Rare H (None) /hpf Hyaline Casts 4 H (0-2) /lpf Urine Mucus Occasional H (None) /hpf Stool Lactoferrin POSITIVE H (NEGATIVE) 08/12/18 08/13/18 08/13/18 Range/Units 20:09 08:40 08:40 WBC (3.8-10.6) k/uL RBC 3.31 L (4.30-5.90) m/uL Hgb 11.0 L (13.0-17.5) gm/dL Hct 34.7 L (39.0-53.0) % MCV 104.9 H (80.0-100.0) fL RDW 17.3 H (11.5-15.5) % Lymphocytes # (Manual) 0.88 L (1.0-4.8) k/uL Potassium 3.1 L 3.2 L (3.5-5.1) mmol/L Chloride 110 H 110 H (98-107) mmol/L Carbon Dioxide 20 L (22-30) mmol/L Calcium 8.1 L 8.3 L (8.4-10.2) mg/dL Alkaline Phosphatase 174 H 177 H (38-126) U/L Total Protein 4.0 L 4.2 L (6.3-8.2) g/dL Albumin 2.0 L 2.0 L (3.5-5.0) g/dL Amylase <30 L (30-110) U/L Lipase <10 L (23-300) U/L Urine Protein (Negative) Urine Ketones (Negative) Urine Bacteria (None) /hpf Hyaline Casts (0-2) /lpf Urine Mucus (None) /hpf Stool Lactoferrin (NEGATIVE) Microbiology - Last 24 Hours (Table) 08/12/18 19:35 Stool Culture - Preliminary Stool Thrombosis Risk Factor Assmnt - Choose All That Apply Any of the Below Risk Factors Present?: No Other Risk Factors: Yes Each Risk Factor Represents 2 Points: Central venous access Each Risk Factor Represents 3 Points: Age 75 years or older Other congenital or acquired thrombophilia - If yes, enter type in comment: No Thrombosis Risk Factor Assessment Total Risk Factor Score: 5 Thrombosis Risk Factor Assessment Level: High Risk Assessment and Plan Assessment: 1. Acute diarrhea likely related to chemotherapy has improved since yesterday according to the patient. 2. Acute hypokalemia due to 3. Dehydration. 4. Intractable nausea no vomiting. 5. Coronary artery disease seems to be compensated. 6. Hypertension currently normotensive with intravenous blood pressure with holding parameters. 7. Hyperlipidemia 8. Osteoarthritis. I have discussed the plan with the patient at length who is agreeable to aggressive hydration consult hematology oncology during this hospital stay and follow-up with his primary care physician upon discharge regarding treatment goals. We'll repeat blood work in the morning and replace potassium today with 40 mEq and repeat potassium and magnesium in the morning. Discharge planning in the morning with some clinical progress
[2018-08-13] MEDS: ATENOLOL 25 MG TAB PO SCH (21:01)
[2018-08-13] MEDS: LOPERAMIDE 2 MG CAP PO PRN (21:01)
[2018-08-13] MEDS: DIPHENOX-ATROP 2.5-0.025 MG 1 EACH TAB PO PRN (22:13)
[2018-08-14 08:20] LABS: ALT 28 U/L (21-72); AST 21 U/L (17-59); Albumin 1.7 g/dL (3.5-5.0); Alkaline Phosphatase 131 U/L (38-126); Anion Gap 6 mmol/L; Blood Urea Nitrogen 13 mg/dL (9-20); Carbon Dioxide 22 mmol/L (22-30); Chloride 116 mmol/L (98-107); Glucose 85 mg/dL (74-99); Potassium 4.3 mmol/L (3.5-5.1); Sodium 144 mmol/L (137-145); Total Bilirubin 0.4 mg/dL (0.2-1.3); Total Protein 3.7 g/dL (6.3-8.2)
[2018-08-14] MEDS: SODIUM CHLORIDE 0.9% 1,000 ML IV SCH ×3 (09:37→23:25)
[2018-08-14] MEDS: ATENOLOL 25 MG TAB PO SCH (10:30)
[2018-08-14] MEDS: DIPHENOX-ATROP 2.5-0.025 MG 1 EACH TAB PO PRN ×3 (10:30→23:21)
[2018-08-14 12:10] LABS: Anisocytosis Slight; Basophils % (A) 0 %; Eosinophils # (A) 0.1 k/uL (0-0.7); Eosinophils % (A) 1 %; HCT 32.1 % (39.0-53.0); HGB 10.1 gm/dL (13.0-17.5); Hypochromasia Slight; Lymphocytes # (A) 0.3 k/uL (1.0-4.8); Lymphocytes % (A) 3 %; MCH 32.7 pg (25.0-35.0); MCHC 31.4 g/dL (31.0-37.0); MCV 104.2 fL (80.0-100.0); Macrocytosis Moderate; Mean Platelet Volume 7.1; Monocytes # (A) 0.4 k/uL (0-1.0); Monocytes % (A) 4 %; Neutrophils # (A) 8.7 k/uL (1.3-7.7); Neutrophils % (A) 90 %; Platelet Count 191 k/uL (150-450); RBC 3.08 m/uL (4.30-5.90); RDW 17.4 % (11.5-15.5); WBC 9.7 k/uL (3.8-10.6)
[2018-08-14] MEDS: LOPERAMIDE 2 MG CAP PO PRN ×2 (13:13→23:21)
[2018-08-14 13:47] VITALS: BMI 18.8
--- NOTE | 2018-08-14 15:55 | P.PN ---
Subjective Progress Note Date: 08/14/18 This is 78 years old male with past medical history significant for pancreatic cancer presents to the hospital with worsening nausea and diarrhea. Patient stated that he has been receiving chemotherapy and most recent course was on Tuesday where patient started to feeding extremely nauseous and having increased frequency of diarrhea over the last 2 days where it became watery without any blood but annoying to the point where patient became extremely dehydrated and weak and decided to come into the emergency department. Patient denied any fever, chills, chest pain, shortness breath dysuria or confusion. Patient stated that he is scheduled to have another course of chemotherapy on Tuesday and that would be his last course before repeating his imaging studies. Patient admitted having ongoing weight loss but not sure how much. In the emergency department patient received IV fluid and was admitted to the medical floor for further evaluation 08/14: Patient has been seen by oncology with recommendations for continuing Imodium and Lomotil increase it to tablets. Patient is starting on Questran which will be increased to twice daily and Sandostatin added. Patient states that he is having 10-12 completely watery stools daily. He usually has problems with diarrhea after chemotherapy but this is a worse episode. Review Of Systems: Constitutional: No fever, no chills, no night sweats. + fatigue. . EENT: No headache. No blurred vision or double vision, no loss of vision. No loss of Hearing, no ringing in the ears, no dizziness. No nasal drainage or congestion. No epistaxis. No sore throat. Lungs: No shortness of breath, cough, no sputum production. No wheezing. Cardiovascular: No chest pain, no lower extremity edema. No palpitations. No paroxysmal nocturnal dyspnea. No orthopnea. No lightheadedness or dizziness. No syncopal episodes. Abdominal: No abdominal pain. + nausea, no vomiting. + diarrhea. No constipation. No bloody or tarry stools. + loss of appetite. Genitourinary: No dysuria, increased frequency, urgency. No urinary retention. Musculoskeletal: No myalgias. No muscle weakness, no gait dysfunction, no frequent falls. No back pain. No neck pain. Integumentary: No wounds, no lesions. No rash or pruritus. No unusual bruising. No change in hair or nails. Psychiatric: No depression. No anxiety. No mood swings. Endocrine: No abnormal blood sugars. No weight change. No excessive sweating or thirst. No cold intolerance. Objective - Vital Signs Vital signs: Vital Signs Temp 97.6 F 08/14/18 12:24 Pulse 109 H 08/14/18 12:24 Resp 16 08/14/18 12:24 BP 134/91 08/14/18 12:24 Pulse Ox 95 08/14/18 12:24 Intake & Output 08/13/18 08/14/18 08/14/18 18:59 06:59 18:59 Intake Total 160 Balance 160 Weight 61.5 kg Intake: Oral 160 Other: Voiding Method Toilet Toilet Toilet # Voids 3 1 # Bowel Movements 1 5 - Exam General: Patient appears distraught and fatigued HEENT: EOMI. Mucosa moist. Neck: Neck supple. Lungs: CTAB. No wheezing or rhonchi. Heart: RRR. No lower extremity edema. Abdomen: Soft, nontender, nondistended with positive bowel sounds. MSK: 4/4 strength in all 4 extremities. Neuro: Alert and oriented 3. No obvious gross neurologic deficits. Skin: No jaundice or rash. Psych: Appropriate affect. - Labs CBC & Chem 7: 08/14/18 11:08 08/14/18 07:08 Labs: Abnormal Lab Results - Last 24 Hours (Table) 08/14/18 08/14/18 Range/Units 07:08 11:08 RBC 3.08 L (4.30-5.90) m/uL Hgb 10.1 L (13.0-17.5) gm/dL Hct 32.1 L (39.0-53.0) % MCV 104.2 H (80.0-100.0) fL RDW 17.4 H (11.5-15.5) % Neutrophils # 8.7 H (1.3-7.7) k/uL Lymphocytes # 0.3 L (1.0-4.8) k/uL Chloride 116 H (98-107) mmol/L Calcium 8.0 L (8.4-10.2) mg/dL Alkaline Phosphatase 131 H (38-126) U/L Total Protein 3.7 L (6.3-8.2) g/dL Albumin 1.7 L (3.5-5.0) g/dL Microbiology - Last 24 Hours (Table) 08/12/18 19:35 Stool Culture - Preliminary Stool Assessment and Plan Plan: 1. Acute diarrhea likely related to chemotherapy. Continue Lomotil, Imodium, Questran, and Sandostatin 2. Acute hypokalemia due to dehydration from diarrhea 3. Dehydration. Continue IV fluids at 80 mL per hour 4. Intractable nausea no vomiting. 5. Coronary artery disease seems to be compensated. 6. Hypertension currently normotensive with intravenous blood pressure with holding parameters. 7. Hyperlipidemia 8. Osteoarthritis. Patient admitted to the hospital for a minimum of two night stay Discharge plan: Return home and 48 hours pending improvement Impression and plan of care have been directed as dictated by the signing physician. Klaudia Kimball nurse practitioner acting as scribe for signing physician.
[2018-08-14] MEDS: CHOLESTYRAMINE (WITH SUGAR) 4 GM PACKET PO SCH (16:42)
[2018-08-14] MEDS: OCTREOTIDE 100 MCG/ML INJ IVP SCH ×2 (16:56→23:21)
--- NOTE | 2018-08-14 18:55 | P.PN ---
Subjective Progress Note Date: 08/14/18 Principal diagnosis: Chemo induced diarrhea Still with watery stools throughout night, complaints no improveemnt Objective - Vital Signs Vital signs: Vital Signs Temp 97.6 F 08/14/18 12:24 Pulse 109 H 08/14/18 12:24 Resp 16 08/14/18 12:24 BP 134/91 08/14/18 12:24 Pulse Ox 95 08/14/18 12:24 Intake & Output 08/13/18 08/14/18 08/14/18 18:59 06:59 18:59 Intake Total 160 Balance 160 Weight 61.5 kg Intake: Oral 160 Other: Voiding Method Toilet Toilet Toilet # Voids 3 1 # Bowel Movements 1 5 - Exam General: No acute distress HEENT: EOMI. Mucosa moist. Neck: Neck supple. Lungs: CTAB. No wheezing or rhonchi. Heart: RRR. No lower extremity edema. Abdomen: Soft, nontender, nondistended with positive bowel sounds. MSK: 4/4 strength in all 4 extremities. Neuro: Alert and oriented 3. No obvious gross neurologic deficits. Skin: No jaundice or rash. Psych: Appropriate affect. - Labs CBC & Chem 7: 08/14/18 11:08 08/14/18 07:08 Labs: Abnormal Lab Results - Last 24 Hours (Table) 08/14/18 08/14/18 Range/Units 07:08 11:08 RBC 3.08 L (4.30-5.90) m/uL Hgb 10.1 L (13.0-17.5) gm/dL Hct 32.1 L (39.0-53.0) % MCV 104.2 H (80.0-100.0) fL RDW 17.4 H (11.5-15.5) % Neutrophils # 8.7 H (1.3-7.7) k/uL Lymphocytes # 0.3 L (1.0-4.8) k/uL Chloride 116 H (98-107) mmol/L Calcium 8.0 L (8.4-10.2) mg/dL Alkaline Phosphatase 131 H (38-126) U/L Total Protein 3.7 L (6.3-8.2) g/dL Albumin 1.7 L (3.5-5.0) g/dL Microbiology - Last 24 Hours (Table) 08/12/18 19:35 Stool Culture - Preliminary Stool Assessment and Plan Plan: Assessment/Recs: 1. Diarrhea, due to chemotherapy: - Continue Lomotil and rotate imodium - Rest Bowel - Add Questran 2. Dehydration with near syncope, due to diarrhea 3. Hypokalemia, due to diarrhea 4. Pancreatic cancer, on chemotherapy: - Status Post Cycle 6 - Chemotherapy to remain on hold Physician Attestation: I have completed the full history and physical of this patient and agree with Jemma Stanley GRAIN MANAGER, Dictated as a scribe
[2018-08-15] MEDS: DIPHENOX-ATROP 2.5-0.025 MG 1 EACH TAB PO PRN ×2 (06:09→21:50)
[2018-08-15 08:31] LABS: Anisocytosis Slight; HCT 32.2 % (39.0-53.0); HGB 10.2 gm/dL (13.0-17.5); Hypochromasia Slight; MCHC 31.7 g/dL (31.0-37.0); MCV 104.2 fL (80.0-100.0); Macrocytosis Moderate; Mean Platelet Volume 7.1; Platelet Count 193 k/uL (150-450); RBC 3.09 m/uL (4.30-5.90); RDW 17.6 % (11.5-15.5); WBC 9.2 k/uL (3.8-10.6)
[2018-08-15 08:39] LABS: ALT 34 U/L (21-72); AST 21 U/L (17-59); Albumin 1.8 g/dL (3.5-5.0); Alkaline Phosphatase 157 U/L (38-126); Anion Gap 7 mmol/L; Blood Urea Nitrogen 13 mg/dL (9-20); Calcium 8.1 mg/dL (8.4-10.2); Carbon Dioxide 20 mmol/L (22-30); Chloride 115 mmol/L (98-107); Glucose 85 mg/dL (74-99); Potassium 3.2 mmol/L (3.5-5.1); Sodium 142 mmol/L (137-145); Total Bilirubin 0.4 mg/dL (0.2-1.3); Total Protein 3.7 g/dL (6.3-8.2)
[2018-08-15] MEDS ORDERED: CHOLESTYRAMINE (WITH SUGAR) 4 GM PACKET PO SCH (10:00)
[2018-08-15] MEDS: CHOLESTYRAMINE (WITH SUGAR) 4 GM PACKET PO SCH ×2 (10:28→17:43)
[2018-08-15] MEDS: ATENOLOL 25 MG TAB PO SCH (10:31)
[2018-08-15] MEDS: POTASSIUM CHLORIDE ER 20 MEQ TAB.ER PO SCH ×2 (11:30→13:25)
[2018-08-15] MEDS: OCTREOTIDE 100 MCG/ML INJ IVP SCH ×2 (11:31→17:37)
[2018-08-15] MEDS: SODIUM CHLORIDE 0.9% 1,000 ML IV SCH (11:50)
--- NOTE | 2018-08-15 15:01 | P.PN ---
Subjective Progress Note Date: 08/15/18 This is 78 years old male with past medical history significant for pancreatic cancer presents to the hospital with worsening nausea and diarrhea. Patient stated that he has been receiving chemotherapy and most recent course was on Tuesday where patient started to feeding extremely nauseous and having increased frequency of diarrhea over the last 2 days where it became watery without any blood but annoying to the point where patient became extremely dehydrated and weak and decided to come into the emergency department. Patient denied any fever, chills, chest pain, shortness breath dysuria or confusion. Patient stated that he is scheduled to have another course of chemotherapy on Tuesday and that would be his last course before repeating his imaging studies. Patient admitted having ongoing weight loss but not sure how much. In the emergency department patient received IV fluid and was admitted to the medical floor for further evaluation 08/14: Patient has been seen by oncology with recommendations for continuing Imodium and Lomotil increase it to tablets. Patient is starting on Questran which will be increased to twice daily and Sandostatin added. Patient states that he is having 10-12 completely watery stools daily. He usually has problems with diarrhea after chemotherapy but this is a worse episode. 08/15: Potassium of 3.2 has been replaced today. He states he is drinking lots of fluids, and he denies any nausea or vomiting. He continues to have watery stool but they are less frequent patient will continue on the Sandostatin for another 24 hours. Anticipate discharge home tomorrow. Review Of Systems: Constitutional: No fever, no chills, no night sweats. + fatigue. . EENT: No headache. No blurred vision or double vision, no loss of vision. No loss of Hearing, no ringing in the ears, no dizziness. No nasal drainage or congestion. No epistaxis. No sore throat. Lungs: No shortness of breath, cough, no sputum production. No wheezing. Cardiovascular: No chest pain, no lower extremity edema. No palpitations. No paroxysmal nocturnal dyspnea. No orthopnea. No lightheadedness or dizziness. No syncopal episodes. Abdominal: No abdominal pain. no nausea, no vomiting. + diarrhea. No constipation. No bloody or tarry stools. no loss of appetite. Genitourinary: No dysuria, increased frequency, urgency. No urinary retention. Musculoskeletal: No myalgias. No muscle weakness, no gait dysfunction, no frequent falls. No back pain. No neck pain. Integumentary: No wounds, no lesions. No rash or pruritus. No unusual bruising. No change in hair or nails. Psychiatric: No depression. No anxiety. No mood swings. Endocrine: No abnormal blood sugars. No weight change. No excessive sweating or thirst. No cold intolerance. Objective - Vital Signs Vital signs: Vital Signs Temp 97.6 F 08/15/18 06:09 Pulse 86 08/15/18 06:09 Resp 16 08/15/18 06:09 BP 94/47 08/15/18 06:09 Pulse Ox 98 08/15/18 06:09 Intake & Output 08/14/18 08/15/18 08/15/18 18:59 06:59 18:59 Intake Total 1250 Balance 1250 Weight 61.5 kg Intake: IV 800 Sodium Chloride 0.9% 1, 800 000 ml @ 80 mls/hr IV . [id number] [facility] Rx#:[id number] Oral 450 Other: Voiding Method Toilet Toilet # Voids 3 1 # Bowel Movements 6 - Exam General: Patient appears comfortable in bed HEENT: EOMI. Mucosa moist. Neck: Neck supple. Lungs: CTAB. No wheezing or rhonchi. Heart: RRR. No lower extremity edema. Abdomen: Soft, nontender, nondistended with positive bowel sounds. MSK: 4/4 strength in all 4 extremities. Neuro: Alert and oriented 3. No obvious gross neurologic deficits. Skin: No jaundice or rash. Psych: Appropriate affect. - Labs CBC & Chem 7: 08/15/18 07:59 08/15/18 07:59 Labs: Abnormal Lab Results - Last 24 Hours (Table) 08/14/18 08/15/18 08/15/18 Range/Units 11:08 07:59 07:59 RBC 3.08 L 3.09 L (4.30-5.90) m/uL Hgb 10.1 L 10.2 L (13.0-17.5) gm/dL Hct 32.1 L 32.2 L (39.0-53.0) % MCV 104.2 H 104.2 H (80.0-100.0) fL RDW 17.4 H 17.6 H (11.5-15.5) % Neutrophils # 8.7 H (1.3-7.7) k/uL Lymphocytes # 0.3 L (1.0-4.8) k/uL Potassium 3.2 L (3.5-5.1) mmol/L Chloride 115 H (98-107) mmol/L Carbon Dioxide 20 L (22-30) mmol/L Calcium 8.1 L (8.4-10.2) mg/dL Alkaline Phosphatase 157 H (38-126) U/L Total Protein 3.7 L (6.3-8.2) g/dL Albumin 1.8 L (3.5-5.0) g/dL Assessment and Plan Plan: 1. Acute diarrhea likely related to chemotherapy. Continue Lomotil, Imodium, Questran, and continue Sandostatin for another 24 hours 2. Acute hypokalemia due to dehydration from diarrhea 3. Dehydration. Continue IV fluids at 80 mL per hour 4. Intractable nausea no vomiting. 5. Coronary artery disease seems to be compensated. 6. Hypertension currently normotensive with intravenous blood pressure with holding parameters. 7. Hyperlipidemia 8. Osteoarthritis. Discharge plan: Return home in 24 hours Impression and plan of care have been directed as dictated by the signing physician. Klaudia Kimball nurse practitioner acting as scribe for signing physician.
--- NOTE | 2018-08-15 16:58 | P.PN ---
Subjective Progress Note Date: 08/15/18 Principal diagnosis: Chemo induced diarrhea diarrhea is improving and tolerating food per patient Objective - Vital Signs Vital signs: Vital Signs Temp 98.1 F 08/15/18 12:34 Pulse 84 08/15/18 12:34 Resp 16 08/15/18 12:34 BP 122/58 08/15/18 12:34 Pulse Ox 95 08/15/18 12:34 Intake & Output 08/14/18 08/15/18 08/15/18 18:59 06:59 18:59 Intake Total 1250 Balance 1250 Weight 61.5 kg Intake: IV 800 Sodium Chloride 0.9% 1, 800 000 ml @ 80 mls/hr IV . [id number] [facility] Rx#:[id number] Oral 450 Other: Voiding Method Toilet Toilet Toilet # Voids 3 1 2 # Bowel Movements 6 - Exam General: No acute distress HEENT: EOMI. Mucosa moist. Neck: Neck supple. Lungs: CTAB. No wheezing or rhonchi. Heart: RRR. No lower extremity edema. Abdomen: Soft, nontender, nondistended with positive bowel sounds. MSK: 4/4 strength in all 4 extremities. Neuro: Alert and oriented 3. No obvious gross neurologic deficits. Skin: No jaundice or rash. Psych: Appropriate affect. - Labs CBC & Chem 7: 08/15/18 07:59 08/15/18 07:59 Labs: Abnormal Lab Results - Last 24 Hours (Table) 08/15/18 08/15/18 Range/Units 07:59 07:59 RBC 3.09 L (4.30-5.90) m/uL Hgb 10.2 L (13.0-17.5) gm/dL Hct 32.2 L (39.0-53.0) % MCV 104.2 H (80.0-100.0) fL RDW 17.6 H (11.5-15.5) % Potassium 3.2 L (3.5-5.1) mmol/L Chloride 115 H (98-107) mmol/L Carbon Dioxide 20 L (22-30) mmol/L Calcium 8.1 L (8.4-10.2) mg/dL Alkaline Phosphatase 157 H (38-126) U/L Total Protein 3.7 L (6.3-8.2) g/dL Albumin 1.8 L (3.5-5.0) g/dL Microbiology - Last 24 Hours (Table) 08/12/18 19:35 Stool Culture - Preliminary Stool Assessment and Plan Plan: Assessment/Recs: 1. Diarrhea, due to chemotherapy:Improving - Continue Lomotil and rotate imodium - Rest Bowel - Advance diet today - Recommend close monitoring of patient off sandostatin as sometimes patient may rebound after completion of therapy. - Continue increased dose of Questran 2. Dehydration with near syncope, due to diarrhea 3. Hypokalemia, due to diarrhea 4. Pancreatic cancer, on chemotherapy: - Status Post Cycle 6 - Chemotherapy to remain on hold Physician Attestation: I have completed the full history and physical of this patient and agree with Jemma Stanley FORKLIFT OPERATOR, Dictated as a scribe
[2018-08-16] MEDS: OCTREOTIDE 100 MCG/ML INJ IVP SCH ×2 (00:28→09:16)
[2018-08-16] MEDS: SODIUM CHLORIDE 0.9% 1,000 ML IV SCH ×2 (00:30→11:57)
[2018-08-16 05:54] VITALS: RESP 16
[2018-08-16] MEDS: CHOLESTYRAMINE (WITH SUGAR) 4 GM PACKET PO SCH (09:16)
[2018-08-16] MEDS: ATENOLOL 25 MG TAB PO SCH (09:16)
[2018-08-16 12:14] VITALS: BP 146/65; PULSE 61; TEMP 97.4
--- NOTE | 2018-08-16 20:02 | P.PN ---
Subjective Progress Note Date: 08/16/18 The pt reports 3-4 small BMs since yesterday AM. His appetite and PO intake are fair. he denied any f/c/n/v/blood in stool Objective - Vital Signs Vital signs: Vital Signs Temp 97.4 F L 08/16/18 11:39 Pulse 61 08/16/18 11:39 Resp 16 08/16/18 11:39 BP 146/65 08/16/18 11:39 Pulse Ox 97 08/16/18 11:39 Intake & Output 08/16/18 08/16/18 08/17/18 06:59 18:59 06:59 Intake Total 280 Balance 280 Intake: IV 280 Sodium Chloride 0.9% 1, 280 000 ml @ 80 mls/hr IV . [id number] [facility] Rx#:[id number] Other: Voiding Method Toilet Toilet # Voids 3 # Bowel Movements 2 - Constitutional General appearance: Present: no acute distress - EENT Eyes: Present: EOMI ENT: Present: normal oropharynx - Respiratory Respiratory: bilateral: CTA - Cardiovascular Rhythm: regular Heart sounds: normal: S1, S2 - Gastrointestinal General gastrointestinal: Present: normal bowel sounds, soft - Integumentary Integumentary: Present: normal - Neurologic Neurologic: Present: CNII-XII intact - Musculoskeletal Musculoskeletal: Present: strength equal bilaterally - Psychiatric Psychiatric: Present: A&O x's 3, appropriate affect - Labs CBC & Chem 7: 08/15/18 07:59 08/15/18 07:59 Labs: Microbiology - Last 24 Hours (Table) 08/12/18 19:35 Stool Culture - Final Stool Assessment and Plan (1) Diarrhea Narrative/Plan: Markedly improved. D/C sandostatin. pt can be d/c ' ed on Cholestyramine and Imodium prn Status: Acute Code(s): R19.7 - DIARRHEA, UNSPECIFIED SNOMED Code(s): 41795703 (2) Dehydration Narrative/Plan: Improved with IV hydration. His PO intake is now satisfactory Status: Acute Code(s): E86.0 - DEHYDRATION SNOMED Code(s): 89252563 (3) Pancreatic cancer Narrative/Plan: He did not have treatment today as scheduled. The chemo will be rescheduled to next week. Will need to consider dose adjustment with next cycle Status: Acute Code(s): C25.9 - MALIGNANT NEOPLASM OF PANCREAS, UNSPECIFIED SNOMED Code(s): 482804315
--- NOTE | 2018-08-17 11:22 | P.DS ---
Providers Date of admission: 08/14/18 15:52 Expected date of discharge: 08/16/18 Attending physician: Kamlesh Lundberg Consults: 08/12/18 22:06 Consult Physician Routine Consulting Provider: Katherine Bailey Consult Reason/Comments: Current treatment pancreatic cancer Do you want consulting provider notified?: Yes Primary care physician: [facility] Course: This is 78 years old male with past medical history significant for pancreatic cancer presents to the hospital with worsening nausea and diarrhea. Patient stated that he has been receiving chemotherapy and most recent course was on Tuesday where patient started to feeding extremely nauseous and having increased frequency of diarrhea over the last 2 days where it became watery without any blood but annoying to the point where patient became extremely dehydrated and weak and decided to come into the emergency department. Patient denied any fever, chills, chest pain, shortness breath dysuria or confusion. Patient stated that he is scheduled to have another course of chemotherapy on Tuesday and that would be his last course before repeating his imaging studies. Patient admitted having ongoing weight loss but not sure how much. In the emergency department patient received IV fluid and was admitted to the medical floor for further evaluation 08/14: Patient has been seen by oncology with recommendations for continuing Imodium and Lomotil increase it to tablets. Patient is starting on Questran which will be increased to twice daily and Sandostatin added. Patient states that he is having 10-12 completely watery stools daily. He usually has problems with diarrhea after chemotherapy but this is a worse episode. 08/15: Potassium of 3.2 has been replaced today. He states he is drinking lots of fluids, and he denies any nausea or vomiting. He continues to have watery stool but they are less frequent patient will continue on the Sandostatin for another 24 hours. Anticipate discharge home tomorrow. 08/16: Frequency and volume of bowel movements have decreased. He states they are still liquid. He has a good appetite and has been eating without any nausea or vomiting. Patient discussed that his potassium at home he has been crushing which is extended release and we'll switch him over to Klor-Con. Patient to continue Lomotil and Questran at home. Patient will be discharged home today in stable condition. Discharge diagnoses: 1. Acute diarrhea likely related to chemotherapy. 2. Acute hypokalemia due to dehydration from diarrhea 3. Dehydration. 4. Intractable nausea no vomiting, resolved. 5. Coronary artery disease 6. Hypertension 7. Hyperlipidemia 8. Osteoarthritis. Discharge plan: home Impression and plan of care have been directed as dictated by the signing physician. Klaudia Kimball nurse practitioner acting as scribe for signing physician. Patient Condition at Discharge: Good Plan - Discharge Summary Discharge Rx Participant: No New Discharge Prescriptions: New Cholestyramine (with Sugar) [Questran] 4 gm PO DAILY 30 Days #30 packet Diphenox-Atrop 2.5-0.025 mg [Lomotil] 2 each PO Q6HR PRN #120 tab PRN Reason: Diarrhea Potassium Chloride [Klor-Con 10] 20 meq PO BID #120 tablet.er Continue Isosorbide Mononitrate ER [Imdur] 30 mg PO DAILY Atenolol 25 mg PO DAILY Nitroglycerin Sl Tabs [Nitrostat] 0.4 mg SL Q5M PRN PRN Reason: Chest Pain Multivitamins, Thera [Multivitamin (formulary)] 1 tab PO DAILY Atorvastatin [Lipitor] 40 mg PO DAILY Pantoprazole Sodium [Protonix] 40 mg PO DAILY Magnesium Oxide [Mag-Ox] 250 mg PO DAILY Aspirin [Adult Low Dose Aspirin EC] 81 Discontinued Potassium Chloride ER [K-Dur 20] 20 meq PO BID amLODIPine [Norvasc] 2.5 mg PO DAILY Discharge Medication List Isosorbide Mononitrate ER [Imdur] 30 mg PO DAILY 02/24/14 [History] Atenolol 25 mg PO DAILY 03/08/14 [History] Nitroglycerin Sl Tabs [Nitrostat] 0.4 mg SL Q5M PRN 03/08/14 [History] Multivitamins, Thera [Multivitamin (formulary)] 1 tab PO DAILY 02/09/18 [History ] Atorvastatin [Lipitor] 40 mg PO DAILY 05/01/18 [History] Pantoprazole Sodium [Protonix] 40 mg PO DAILY 05/01/18 [History] Aspirin [Adult Low Dose Aspirin EC] 81 08/13/18 [History] Magnesium Oxide [Mag-Ox] 250 mg PO DAILY 08/13/18 [History] Cholestyramine (with Sugar) [Questran] 4 gm PO DAILY 30 Days #30 packet [Rx] Diphenox-Atrop 2.5-0.025 mg [Lomotil] 2 each PO Q6HR PRN #120 tab 08/16/18 [Rx] Potassium Chloride [Klor-Con 10] 20 meq PO BID #120 tablet.er 08/16/18 [Rx] Follow up Appointment(s)/Referral(s): Leodan Tadeo MD [Primary Care Provider] - 08/18/18 9:45 am [facility], [NON-STAFF] - 1 Week [facility], [REFERRING] - 1 Week Ramón Kunz MD [STAFF PHYSICIAN] - 08/23/18 10:00 am Patient Instructions/Handouts: Diphenoxylate/Atropine (By mouth), Cholestyramine (By mouth), Potassium Chloride (By mouth), Dehydration (DC), Syncope (DC), Acute Diarrhea (GEN) Discharge Disposition: HOME WITH HOME HEALTH SERVICES
== END 2018-08-16 15:00 | disposition home health service (06) | DRG 394 ==
LOC: EC 19:19 → 3NMEDONC 22:12 → OBSVTOIN 08-14 15:52
PROVIDERS: ADMIT Internal Medicine; ATTEND Internal Medicine
DX: K52.1 Toxic gastroenteritis and colitis (principal); C25.0 Malignant neoplasm of head of pancreas; K51.90 Ulcerative colitis, unspecified, without complications; E86.0 Dehydration; E87.6 Hypokalemia; T45.1X5A Adverse effect of antineoplastic and immunosuppressive drugs, initial encounter; R55 Syncope and collapse; M54.40 Lumbago with sciatica, unspecified side; I25.10 Atherosclerotic heart disease of native coronary artery without angina pectoris; K21.9 Gastro-esophageal reflux disease without esophagitis; E78.5 Hyperlipidemia, unspecified; I10 Essential (primary) hypertension; M19.91 Primary osteoarthritis, unspecified site; Z79.82 Long term (current) use of aspirin; Z79.899 Other long term (current) drug therapy; Z87.891 Personal history of nicotine dependence; Z85.828 Personal history of other malignant neoplasm of skin; Z87.440 Personal history of urinary (tract) infections; Z90.49 Acquired absence of other specified parts of digestive tract; Z95.5 Presence of coronary angioplasty implant and graft; Z87.442 Personal history of urinary calculi; Z87.448 Personal history of other diseases of urinary system; Z87.19 Personal history of other diseases of the digestive system; Z98.42 Cataract extraction status, left eye; Z98.41 Cataract extraction status, right eye; Z88.1 Allergy status to other antibiotic agents; Z80.0 Family history of malignant neoplasm of digestive organs; Z80.6 Family history of leukemia
CPT/HCPCS: 36415; 80053; 81001; 82150; 83630; 83690; 85025; 85027; 87045; 87046; 87324; 96360; 99284

== ENCOUNTER → 2018-09-19 | Outpatient (CLI) | payer MEDICARE ==
--- NOTE | 2018-09-20 07:24 | ECHOF ---
Referral Reason:C25.0 Cancer head of pancreas MEASUREMENTS -------- HEIGHT: 180.3 cm WEIGHT: 72.6 kg BP: 115/69 RVIDd: 3.3 cm (< 3.3) IVSd: 1.3 cm (0.6 - 1.1) LVIDd: 4.1 cm (3.9 - 5.3) LVPWd: 1.2 cm (0.6 - 1.1) IVSs: 1.6 cm LVIDs: 2.6 cm LVPWs: 1.8 cm LA Diam: 3.0 cm (2.7 - 3.8) LAESV Index (A-L): 17.26 ml/m Ao Diam: 3.8 cm (2.0 - 3.7) AV Cusp: 1.9 cm (1.5 - 2.6) MV EXCURSION: 12.148 mm (> 18.000) MV EF SLOPE: 176 mm/s (70 - 150) EPSS: 1.1 cm MV E [place]: 0.95 m/s MV DecT: 208 ms MV A [place]: 1.43 m/s MV E/A Ratio: 0.66 AR PHT: 483 ms RAP: 5.00 mmHg RVSP: 37.42 mmHg FINDINGS -------- Sinus rhythm. This was a technically good study. The left ventricular size is normal. There is mild concentric left ventricular hypertrophy. Overa ll left ventricular systolic function is low-normal with, an EF between 50 - 55 %. The right ventricle is mildly enlarged. Normal LA size by volume 22+/-6 ml/m2. The right atrium is normal in size. There is mild aortic valve sclerosis. There is mild aortic regurgitation. The mitral valve leaflets are mildly thickened. Vzyt-nx-noghvgvw mitral regurgitation is present. Dted-fw-svybwyol tricuspid regurgitation present. There is mild pulmonary hypertension. The right ventricular systolic pressure, as measured by Doppler, is 37.42mmHg. There is no pulmonic regurgitation present. The aortic root is dilated measuring 3.8cm. IVC Not well visulized. There is a trivial pericardial effusion present. Large Pleural Effusion. CONCLUSIONS -------- 1. Sinus rhythm. 2. This was a technically good study. 3. The left ventricular size is normal. 4. There is mild concentric left ventricular hypertrophy. 5. Overall left ventricular systolic function is low-normal with, an EF between 50 - 55 %. 6. The right ventricle is mildly enlarged. 7. Normal LA size by volume 22+/-6 ml/m2. 8. There is mild aortic valve sclerosis. 9. There is mild aortic regurgitation. 10. The mitral valve leaflets are mildly thickened. 11. Wbkn-xn-yafuvxky mitral regurgitation is present. 12. Llyb-zn-phnmeelr tricuspid regurgitation present. 13. There is mild pulmonary hypertension. 14. There is no pulmonic regurgitation present. 15. The aortic root is dilated measuring 3.8cm. 16. IVC Not well visulized. 17. There is a trivial pericardial effusion present. 18. Large Pleural Effusion. STICKER ON: Joselin Mcnair RDCS
== END | disposition home or self-care (01) ==
LOC: RADECHMAIN 13:43
PROVIDERS: ATTEND Internal Medicine Hematology & Oncology
DX: C25.0 Malignant neoplasm of head of pancreas (principal); I08.3 Combined rheumatic disorders of mitral, aortic and tricuspid valves; I27.20 Pulmonary hypertension, unspecified; J90 Pleural effusion, not elsewhere classified; I31.3 Pericardial effusion (noninflammatory); Z79.2 Long term (current) use of antibiotics
CPT/HCPCS: 93306

== ENCOUNTER → 2018-10-09 | Outpatient (CLI) | payer MEDICARE ==
--- NOTE | 2018-10-09 10:43 | CT ---
"EXAMINATION TYPE: CT abdomen pelvis w con DATE OF EXAM: 10/09/2018 COMPARISON: CT abdomen and pelvis June 26, 2018 and older CTs. HISTORY: Pancreatic Cancer progress study. CT DLP: 1093.5 mGycm, Automated Exposure Control for Dose Reduction was Utilized. CONTRAST: CT scan of the abdomen and pelvis is performed with oral and with IV Contrast, patient injected with 100 ml mL of Isovue 370. FINDINGS: LUNG BASES: There are at least moderate bilateral pleural effusions with associated compressive atele ctasis new from prior study only partially imaged. LIVER/GB: Cholecystectomy clips are redemonstrated. Liver is now diminished in size and shows delayed postcontrast enhancement. There is mild to moderate left-sided intrahepatic and extrahepatic biliary dilatation which is more prominent from prior CT up to level just short of the duodenal ampulla wher e there is abrupt narrowing coronal image 73. PANCREAS: Pancreas is diminished in size and more heterogeneous in appearance, there is likely persis tent ductal dilatation. Obstructing mass is suspected but not well visualized. 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 SPLEEN: Spleen is diminished in size with delayed enhancement. ADRENALS: No significant abnormality is seen. KIDNEYS: Some right-sided renal calculi are redemonstrated. Delayed but symmetric cortical medullary uptake in both kidneys is seen. No gross hydronephrosis is present. There are few simple appearing cy sts scattered throughout both kidneys. BOWEL: There is new small to moderate size hiatal hernia. Oral contrast only reaches mid jejunal leve l making evaluation suboptimal. No suspicious small or large bowel dilatation is seen. Bowel loops ar e all medially displaced by massive ascites. PROSTATE/SEMINAL VESICLES: Few scattered pelvic phleboliths are seen LYMPH NODES: No greater than 1cm abdominal or pelvic lymph nodes are appreciated. OSSEOUS STRUCTURES: Asymmetric right sacroiliac joint narrowing is redemonstrated. Moderate axial philipp nt space loss in both hips is again seen. There is moderate to severe lumbosacral joint narrowing. Th ere is moderate to severe multilevel spurring in the lower thoracic spine. OTHER: New massive abdominal and pelvic ascites. New severe diffuse soft tissue anasarca. IMPRESSION: 1. Severe diffuse abdominal and pelvic ascites significantly progressed from prior study. There are a t least moderate bilateral pleural effusions new from prior study. There is new severe diffuse soft t issue anasarca. There is diminished or delayed perfusion to intra-abdominal organs. Organs are dimini shed in size from prior exam suggesting necrosis or infarction. Worsening biliary dilatation noted. S uspected pancreatic head mass or neoplasm is not well-visualized. A [place] level critical message alert has been initiated for Ramón Kunz MD via the VidBid 36 0 | Critical Results System on 10/09/2018 10:40 AM. This message alert has been sent to Ramón damon MD via the preferences provided by the clinician for the receipt of Radiology Critical Findings. M essage ID [id number]."
== END ==
LOC: RADCTMAIN 07:25
PROVIDERS: ATTEND Internal Medicine Hematology & Oncology
DX: C25.0 Malignant neoplasm of head of pancreas (principal); R18.8 Other ascites; R60.1 Generalized edema
CPT/HCPCS: 82565; 84520; 74177; 36415; Q9967

== ENCOUNTER 2018-10-10 10:54 | Inpatient (IN) | payer MEDICARE ==
--- NOTE | 2018-10-10 11:39 | ED ---
General Adult HPI - General Chief complaint: Weakness Stated complaint: Weakness Time Seen by Provider: 10/10/18 11:10 Source: patient, family, EMS, RN notes reviewed, old records reviewed Mode of arrival: EMS Limitations: physical limitation - History of Present Illness Initial comments: 78-year-old male presents with worsening generalized weakness. Patient has history of pancreatic cancer, completed most recent round of chemotherapy 6 weeks ago. He is currently off cycle. Over the past several days he's had worsening generalized weakness, increased abdominal distention, increased fluid retention in his legs, and increased dyspnea. Patient denies chest pain. He has abdominal pain but this is unchanged from baseline. Patient states he had an outpatient computed tomography scan yesterday. Denies fever or chills. Denies current nausea vomiting or diarrhea. He did have an episode of diarrhea approximately one week ago which is resolved. - Related Data Home Medications Medication Instructions Recorded Confirmed Isosorbide Mononitrate ER [Imdur] 30 mg PO DAILY 02/24/14 10/10/18 Atenolol 25 mg PO DAILY 03/08/14 10/10/18 Nitroglycerin Sl Tabs [Nitrostat] 0.4 mg SL Q5M PRN 03/08/14 10/10/18 Multivitamins, Thera [Multivitamin 1 tab PO DAILY 02/09/18 10/10/18 (formulary)] Atorvastatin [Lipitor] 40 mg PO DAILY 05/01/18 10/10/18 Pantoprazole Sodium [Protonix] 40 mg PO DAILY 05/01/18 10/10/18 Aspirin [Adult Low Dose Aspirin EC] 81 mg PO DAILY 08/13/18 10/10/18 Magnesium Oxide [Mag-Ox] 250 mg PO DAILY 08/13/18 10/10/18 Furosemide [Lasix] 20 mg PO BID 10/10/18 10/10/18 Previous Rx's Medication Instructions Recorded Cholestyramine (with Sugar) 4 gm PO DAILY 30 Days #30 packet 08/16/18 [Questran] Diphenox-Atrop 2.5-0.025 mg 2 each PO Q6HR PRN #120 tab 08/16/18 [Lomotil] Potassium Chloride [Klor-Con 10] 20 meq PO BID #120 tablet.er 08/16/18 Allergies Allergy/AdvReac Type Severity Reaction Status Date / Time cefepime Allergy Intermediate Rash/Hives Verified 10/10/18 11:08 Review of Systems ROS Statement: Those systems with pertinent positive or pertinent negative responses have been documented in the HPI. ROS Other: All systems not noted in ROS Statement are negative. Past Medical History Past Medical History: Coronary Artery Disease (CAD), Cancer, GERD/Reflux, Hyperlipidemia, Hypertension, Osteoarthritis (OA), Renal Disease Additional Past Medical History / Comment(s): Pancreatic CA- recent dx pt recieved chemo 11-29-17 has had 9 tx so far. skin cancer with removal, nephrolithiasis with surgery, sinus problems at times, ulcerative colitis in the 1970s, back pain/sciatica, past numbness/tingling L arm-pt stated was d/t chemo, uti, History of Any Multi-Drug Resistant Organisms: None Reported Past Surgical History: Cholecystectomy, Heart Catheterization With Stent, Tonsillectomy Additional Past Surgical History / Comment(s): PCI/stent x5, pilonidial cyst removed, hemohroidectomy, EGD/colonoscopy that nicked his bowel followed by open laparotomy done at [facility], cystoscopy/kidney stone removal, skin cancer removed from R side of neck, bilateral cataract removals, port placement rt upper chest Past Anesthesia/Blood Transfusion Reactions: No Reported Reaction Date of Last Stent Placement:: 2012 Past Psychological History: No Psychological Hx Reported Smoking Status: Former smoker Past Alcohol Use History: None Reported Past Drug Use History: None Reported - Past Family History Father Additional Family Medical History / Comment(s): Father at age 84 from old age with no major medical problems. Mother Additional Family Medical History / Comment(s): Mother from leukemia. Brother(s) Additional Family Medical History / Comment(s): She has a brother that from stomach cancer. Patient has 3 sisters with no major medical problems. Patient has 3 children with no major medical problems. General Exam Limitations: physical limitation General appearance: alert, in no apparent distress, cachectic Head exam: Present: atraumatic, normocephalic Eye exam: Present: normal appearance, PERRL ENT exam: Present: mucous membranes dry Neck exam: Present: normal inspection. Absent: tenderness, meningismus Respiratory exam: Present: rales, decreased breath sounds (Lung bases). Absent : respiratory distress Cardiovascular Exam: Present: regular rate, normal rhythm GI/Abdominal exam: Present: distended, tenderness (Mild tenderness), other ( Ascites) Extremities exam: Present: pedal edema Neurological exam: Present: alert, oriented X3, CN II-XII intact. Absent: motor sensory deficit Psychiatric exam: Present: normal affect, normal mood Skin exam: Present: warm, pallor, other (Jaundice) Course Vital Signs 10/10/18 11:14 Temperature 97.3 F L Pulse Rate 86 Respiratory 18 Rate Blood Pressure 109/71 O2 Sat by Pulse 99 Oximetry EKG Findings - EKG Comments: EKG Findings:: EKG: Atrial fibrillation with low voltage, ventricular rate of 82 , QRS duration 82, QTC 401. No ST segment changes. He will be junctional rhythm Medical Decision Making - Medical Decision Making 78-year-old male history of pancreatic cancer. Patient presenting with generalized weakness, fluid retention. Patient has diffuse edema consistent with anasarca. Distended abdomen, he is jaundiced on exam, peripheral edema. EKG is low-voltage, with concern for pericardial effusion echo was obtained, according to initial read there was small effusion but no large pericardial effusion. X-ray shows bilateral large pleural effusions. Ultrasound of the abdomen including the bone which really is pending. Patient's labs are consistent with liver failure and likely obstructive process with elevated bilirubin and hypoalbuminemia, elevated AST, ALT, alkaline phosphatase. Total bili 5.1. Case is discussed with the patient's oncologist, Dr. Kunz. Patient is likely end-stage of his disease process. We will also consult GI for recommendations. Case discussed with Dr. Schaffer, Will admit. - Lab Data Result diagrams: 10/10/18 11:57 10/10/18 11:57 Lab Results 10/10/18 10/10/18 10/10/18 Range/Units 11:57 11:57 11:57 WBC 6.9 (3.8-10.6) k/uL RBC 3.32 L (4.30-5.90) m/uL Hgb 11.5 L D (13.0-17.5) gm/dL Hct 36.1 L (39.0-53.0) % MCV 108.8 H D (80.0-100.0) fL MCH 34.7 (25.0-35.0) pg MCHC 31.9 (31.0-37.0) g/dL RDW 15.4 (11.5-15.5) % Plt Count 143 L (150-450) k/uL Neutrophils % 86 % Lymphocytes % 7 % Monocytes % 5 % Eosinophils % 1 % Basophils % 0 % Neutrophils # 5.9 (1.3-7.7) k/uL Lymphocytes # 0.5 L (1.0-4.8) k/uL Monocytes # 0.4 (0-1.0) k/uL Eosinophils # 0.1 (0-0.7) k/uL Basophils # 0.0 (0-0.2) k/uL Manual Slide Review Performed Macrocytosis Marked PT (9.0-12.0) sec INR (<1.2) APTT (22.0-30.0) sec Sodium 138 (137-145) mmol/L Potassium 3.8 (3.5-5.1) mmol/L Chloride 110 H (98-107) mmol/L Carbon Dioxide 25 (22-30) mmol/L Anion Gap 3 mmol/L BUN 23 H (9-20) mg/dL Creatinine 1.05 (0.66-1.25) mg/dL Est GFR (CKD-EPI)AfAm 78 (>60 ml/min/1.73 sqM) Est GFR (CKD-EPI)NonAf 67 (>60 ml/min/1.73 sqM) Glucose 86 (74-99) mg/dL Plasma Lactic Acid Moisés 1.1 (0.7-2.0) mmol/L Calcium 7.7 L (8.4-10.2) mg/dL Total Bilirubin 5.2 H (0.2-1.3) mg/dL Conjugated Bilirubin 2.3 H (0.0-0.3) mg/dL Unconjugated Bilirubin 0.8 (0.0-1.1) mg/dL Delta Bilirubin 2.1 H (0.0-0.2) mg/dL AST 160 H (17-59) U/L ALT 96 H (21-72) U/L Alkaline Phosphatase 1108 H (38-126) U/L Total Protein 3.9 L (6.3-8.2) g/dL Albumin 1.5 L (3.5-5.0) g/dL Amylase <30 L (30-110) U/L Lipase <10 L (23-300) U/L Urine Color Urine Appearance (Clear) Urine pH (5.0-8.0) Ur Specific [place] (1.001-1.035) Urine Protein (Negative) Urine Glucose (UA) (Negative) Urine Ketones (Negative) Urine Blood (Negative) Urine Nitrite (Negative) Urine Bilirubin (Negative) Urine Urobilinogen (<2.0) mg/dL Ur Leukocyte Esterase (Negative) 10/10/18 10/10/18 Range/Units 11:57 13:05 WBC (3.8-10.6) k/uL RBC (4.30-5.90) m/uL Hgb (13.0-17.5) gm/dL Hct (39.0-53.0) % MCV (80.0-100.0) fL MCH (25.0-35.0) pg MCHC (31.0-37.0) g/dL RDW (11.5-15.5) % Plt Count (150-450) k/uL Neutrophils % % Lymphocytes % % Monocytes % % Eosinophils % % Basophils % % Neutrophils # (1.3-7.7) k/uL Lymphocytes # (1.0-4.8) k/uL Monocytes # (0-1.0) k/uL Eosinophils # (0-0.7) k/uL Basophils # (0-0.2) k/uL Manual Slide Review Macrocytosis PT 15.1 H (9.0-12.0) sec INR 1.5 H (<1.2) APTT >200.0 H* (22.0-30.0) sec Sodium (137-145) mmol/L Potassium (3.5-5.1) mmol/L Chloride (98-107) mmol/L Carbon Dioxide (22-30) mmol/L Anion Gap mmol/L BUN (9-20) mg/dL Creatinine (0.66-1.25) mg/dL Est GFR (CKD-EPI)AfAm (>60 ml/min/1.73 sqM) Est GFR (CKD-EPI)NonAf (>60 ml/min/1.73 sqM) Glucose (74-99) mg/dL Plasma Lactic Acid Moisés (0.7-2.0) mmol/L Calcium (8.4-10.2) mg/dL Total Bilirubin (0.2-1.3) mg/dL Conjugated Bilirubin (0.0-0.3) mg/dL Unconjugated Bilirubin (0.0-1.1) mg/dL Delta Bilirubin (0.0-0.2) mg/dL AST (17-59) U/L ALT (21-72) U/L Alkaline Phosphatase (38-126) U/L Total Protein (6.3-8.2) g/dL Albumin (3.5-5.0) g/dL Amylase (30-110) U/L Lipase (23-300) U/L Urine Color Dark Brown Urine Appearance Clear (Clear) Urine pH 5.5 (5.0-8.0) Ur Specific [place] 1.041 H (1.001-1.035) Urine Protein Trace H (Negative) Urine Glucose (UA) Negative (Negative) Urine Ketones Negative (Negative) Urine Blood Negative (Negative) Urine Nitrite Negative (Negative) Urine Bilirubin 2+ H (Negative) Urine Urobilinogen 2.0 (<2.0) mg/dL Ur Leukocyte Esterase Negative (Negative) Disposition Clinical Impression: Pancreatic cancer, Anemia, Liver failure, Hyperbilirubinemia Disposition: ADMITTED IP TO THIS HOSP Condition: Stable Is patient prescribed a controlled substance at d/c from ED?: No Referrals: Leodan Tadeo MD [Primary Care Provider] - 1-2 days Time of Disposition: 14:13
[2018-10-10 12:19] LABS: Basophils % (A) 0 %; Eosinophils # (A) 0.1 k/uL (0-0.7); Eosinophils % (A) 1 %; HCT 36.1 % (39.0-53.0); Lymphocytes # (A) 0.5 k/uL (1.0-4.8); Lymphocytes % (A) 7 %; MCH 34.7 pg (25.0-35.0); MCHC 31.9 g/dL (31.0-37.0); Macrocytosis Marked; Mean Platelet Volume 7.6; Monocytes # (A) 0.4 k/uL (0-1.0); Monocytes % (A) 5 %; Neutrophils # (A) 5.9 k/uL (1.3-7.7); Neutrophils % (A) 86 %; Platelet Count 143 k/uL (150-450); RBC 3.32 m/uL (4.30-5.90); RDW 15.4 % (11.5-15.5); WBC 6.9 k/uL (3.8-10.6)
[2018-10-10 12:20] LABS: HGB 11.5 gm/dL (13.0-17.5); MCV 108.8 fL (80.0-100.0)
[2018-10-10 12:39] LABS: INR 1.5 (<1.2); Prothrombin Time 15.1 sec (9.0-12.0)
[2018-10-10 12:50] LABS: ALT 96 U/L (21-72); AST 160 U/L (17-59); Albumin 1.5 g/dL (3.5-5.0); Alkaline Phosphatase 1108 U/L (38-126); Amylase <30 U/L (30-110); Anion Gap 3 mmol/L; Bilirubin, Conjugated 2.3 mg/dL (0.0-0.3); Bilirubin, Delta 2.1 mg/dL (0.0-0.2); Bilirubin,Unconjugated 0.8 mg/dL (0.0-1.1); Blood Urea Nitrogen 23 mg/dL (9-20); Calcium 7.7 mg/dL (8.4-10.2); Carbon Dioxide 25 mmol/L (22-30); Chloride 110 mmol/L (98-107); Glucose 86 mg/dL (74-99); Lipase <10 U/L (23-300); Potassium 3.8 mmol/L (3.5-5.1); Sodium 138 mmol/L (137-145); Total Bilirubin 5.2 mg/dL (0.2-1.3); Total Protein 3.9 g/dL (6.3-8.2)
[2018-10-10 13:02] LABS: Partial Thromboplastin Time >200.0 sec (22.0-30.0)
--- NOTE | 2018-10-10 13:03 | XR ---
EXAMINATION TYPE: XR chest 2V DATE OF EXAM: 10/10/2018 COMPARISON: 02/09/2018 TECHNIQUE: PA and lateral views submitted. HISTORY: Shortness of breath FINDINGS: There is bilateral consolidation and pleural effusion. Mediport catheter noted. Tip overlies the righ t atrium. Underlying COPD suspected. No pneumothorax. Arthropathy of the shoulders. Heart size stable . IMPRESSION: Interval development of bilateral consolidation and pleural effusion. Correlate for pneum onia. Otherwise consider CHF.
[2018-10-10] MEDS ORDERED: HYDROmorphone 0.5 MG/0.5 ML SYRINGE IVP PRN (14:04)
[2018-10-10] MEDS ORDERED: ONDANSETRON 4 MG/2 ML VIAL IVP PRN (14:04)
[2018-10-10] MEDS ORDERED: NALOXONE 0.4 MG/ML 1 ML VIAL IV PRN (14:04)
[2018-10-10 14:05] LABS: Appearance,Urine Clear (Clear); Bilirubin,Urine 2+ (Negative); Blood,Urine Negative (Negative); Color,Urine Dark Brown; Glucose,Urine (UA) Negative (Negative); Ketones,Urine Negative (Negative); Leukocyte Esterase,Urine Negative (Negative); Nitrite,Urine Negative (Negative); PH, Urine 5.5 (5.0-8.0); Protein,Urine Trace (Negative); Specific Gravity,Urine 1.041 (1.001-1.035)
[2018-10-10] MEDS ORDERED: FUROSEMIDE 10 MG/ML 2 ML VIAL IV STA (14:06)
--- NOTE | 2018-10-10 14:07 | ECHOF ---
Referral Reason:effusion MEASUREMENTS -------- HEIGHT: 157.5 cm WEIGHT: 79.4 kg BP: FINDINGS -------- Limited Study for Pericardial Effusion: Pt had complete echo 09/19/18. There is a small, generalized pericardial effusion present. CONCLUSIONS -------- 1. There is a small, generalized pericardial effusion present. MARKETING LEAD: Dalila Issa RDCS
--- NOTE | 2018-10-10 14:07 | US ---
EXAMINATION TYPE: US abdomen complete DATE OF EXAM: 10/10/2018 COMPARISON: CT 10/09/18 CLINICAL HISTORY: abdominal pain. Pancreatic CA, abdominal pain, ascites EXAM MEASUREMENTS: Liver Length: 12.8 cm Gallbladder Wall: Surgically absent cm CBD: 2.2 cm Spleen: 9.1 cm Right Kidney: 10.7 x 5.4 x 4.0 cm Left Kidney: 10.9 x 5.6 x 4.3 cm Pancreas: Obscured by bowel gas Liver: Partially Obscured by overlying bowel gas . Intrahepatic biliary ductal dilatation is seen as well as as extrahepatic biliary ductal dilatation. 9 mm hypoattenuated hepatic lesion is also seen s uspicious for metastasis. Gallbladder: Surgically absent Evidence for sonographic Vega's sign: No CBD: enlarged Spleen: wnl Right Kidney: No hydronephrosis or masses seen Left Kidney: Partially Obscured by overlying bowel gas, lateral hypoattenuated lesion = 1.1 x 1.2 x 1.0 cm. This is optimally visualize and suboptimally characterized. No hydronephrosis seen Upper IVC: Obscured by overlying bowel gas Abd Aorta: Obscured by overlying bowel gas The liver is homogenous. The intrahepatic portion of the IVC and proximal abdominal aorta are within normal limits. There is no evidence of cholelithiasis. Common bile duct is unremarkable. The visu alized portions of the pancreas are homogenous. The spleen is unremarkable. Kidneys are symmetric a nd free of hydronephrosis. No renal lesions are seen. IMPRESSION: 1. Intrahepatic and extra hepatic biliary ductal dilatation secondary the patient's known pancreatic carcinoma. There is a focal hypoattenuated 9 mm hepatic lesion suspicious for metastasis. 2. Overall large volume abdominal pelvic ascites is noted. 3. The pancreas and the patient's known pancreatic carcinoma are obscured by overlying bowel gas as a re the inferior vena cava and aorta.
[2018-10-10] MEDS: HYDROmorphone 1 MG/ML 1 ML SYRINGE IVP PRN (16:00)
[2018-10-11] MEDS ORDERED: FUROSEMIDE 10 MG/ML 2 ML VIAL IV SCH (09:00)
[2018-10-11 10:27] LABS: INR 1.4 (<1.2); Partial Thromboplastin Time 31.2 sec (22.0-30.0); Prothrombin Time 14.6 sec (9.0-12.0)
[2018-10-11 10:39] LABS: Basophils % (A) 0 %; Eosinophils # (A) 0.1 k/uL (0-0.7); Eosinophils % (A) 1 %; HCT 41.8 % (39.0-53.0); HGB 12.8 gm/dL (13.0-17.5); Lymphocytes # (A) 0.5 k/uL (1.0-4.8); Lymphocytes % (A) 7 %; MCH 33.5 pg (25.0-35.0); MCHC 30.7 g/dL (31.0-37.0); MCV 108.8 fL (80.0-100.0); Macrocytosis Marked; Mean Platelet Volume 8.4; Monocytes # (A) 0.3 k/uL (0-1.0); Monocytes % (A) 4 %; Neutrophils # (A) 6.3 k/uL (1.3-7.7); Neutrophils % (A) 86 %; Platelet Count 114 k/uL (150-450); RBC 3.84 m/uL (4.30-5.90); RDW 15.3 % (11.5-15.5); WBC 7.4 k/uL (3.8-10.6)
[2018-10-11 11:04] LABS: Poikilocytosis (M) Present
--- NOTE | 2018-10-11 12:11 | P.CONS ---
History of Present Illness - Reason for Consult Consult date: 10/11/18 jaundice elevated liver enzymes Requesting physician: Mireya Schaffer - Chief Complaint Weakness jaundice - History of Present Illness 78-year-old gentleman with a history of endoscopic related small bowel injury 1 year ago, cholecystectomy, pancreatic adenocarcinoma presently on a chemotherapy holiday for the last 6 weeks presents with worsening fatigue and weakness new onset of elevated liver enzymes. Denies fever or chills. Urine more darker over the last few days as well as later color bowel movements. CT abdomen and pelvis moderate left-sided intrahepatic connection hepatic biliary dilatation up to the level just short of the duodenal ampulla where there is abrupt narrowing. Persistent pancreatic duct dilatation. Suspect occlusion of the SMV. Ultrasound abdomen CBD 2.2 cm. Intra-hepatic biliary duct dilatation as well as extrahepatic biliary duct dilatation. 9 mm hepatic lesions suspicious for metastasis. TB 5.2. AST 160. ALT 96. AP 1108. Previous LFTs 2 weeks ago TB 0.4. AST 50. ALT 45. AP 254. Lipase less than 10. Hemoglobin 12.8. White count 7.4. Platelet 114. Review of Systems Constitutional: Denies fever, chills, sweats, weight gain, or loss. Increased fatigue weakness. HEENT: Negative for migraines, blurred vision or loss, earaches, drainage, tinnitus, oral mucosal lesions, dysphagia, or odynophagia. Cardiac: Negative for chest pain, arrhythmias, or palpitation. Respiratory: Negative for shortness of breath, hemoptysis, cough, or sputum production. Gastrointestinal: See HPI for pertinent findings. Genitourinary: Negative for hematuria, urgency, frequency, polyuria, dysuria, or penile discharge. Musculoskeletal: Negative for muscle aches, swelling, arthritis, and arthralgias. Neurologic: Negative for stroke or TIA. Endocrine: Negative for thyroid problems. Skin: Negative for rash or itching. Psychiatric: Negative history for depression and anxiety Past Medical History Past Medical History: Coronary Artery Disease (CAD), Cancer, GERD/Reflux, Hyperlipidemia, Hypertension, Osteoarthritis (OA) Additional Past Medical History / Comment(s): Pancreatic CA-per family-pt had chemo 5 weeks ago. skin cancer with removal, nephrolithiasis with surgery, sinus problems at times, ulcerative colitis in the 1970s, back pain/sciatica, past numbness/tingling L arm-pt stated was d/t chemo, uti, History of Any Multi-Drug Resistant Organisms: None Reported Past Surgical History: Cholecystectomy, Heart Catheterization With Stent, Tonsillectomy Additional Past Surgical History / Comment(s): .PCI/stent x5, pilonidial cyst removed, hemohroidectomy, EGD/colonoscopy. during bx for pancreatic cancer his small intestine was nicked- followed by open laparotomy done at [facility], cystoscopy/kidney stone removal, skin cancer removed from R side of neck, bilateral cataract removals, port placement rt upper chest Past Anesthesia/Blood Transfusion Reactions: No Reported Reaction Date of Last Stent Placement:: 2012 Smoking Status: Former smoker - Past Family History Father Additional Family Medical History / Comment(s): Father at age 84 from old age with no major medical problems. Mother Additional Family Medical History / Comment(s): Mother from leukemia. Brother(s) Additional Family Medical History / Comment(s): She has a brother that from stomach cancer. Patient has 3 sisters with no major medical problems. Patient has 3 children with no major medical problems. Medications and Allergies Home Medications Medication Instructions Recorded Confirmed Type Isosorbide Mononitrate ER [Imdur] 30 mg PO DAILY 02/24/14 10/10/18 History Atenolol 25 mg PO DAILY 03/08/14 10/10/18 History Nitroglycerin Sl Tabs [Nitrostat] 0.4 mg SL Q5M PRN 03/08/14 10/10/18 History Multivitamins, Thera [Multivitamin 1 tab PO DAILY 02/09/18 10/10/18 History (formulary)] Atorvastatin [Lipitor] 40 mg PO DAILY 05/01/18 10/10/18 History Pantoprazole Sodium [Protonix] 40 mg PO DAILY 05/01/18 10/10/18 History Aspirin [Adult Low Dose Aspirin EC] 81 mg PO DAILY 08/13/18 10/10/18 History Magnesium Oxide [Mag-Ox] 250 mg PO DAILY 08/13/18 10/10/18 History Cholestyramine (with Sugar) 4 gm PO DAILY 30 Days #30 packet 08/16/18 10/10/18 Rx [Questran] Diphenox-Atrop 2.5-0.025 mg 2 each PO Q6HR PRN #120 tab 08/16/18 10/10/18 Rx [Lomotil] Potassium Chloride [Klor-Con 10] 20 meq PO BID #120 tablet.er 08/16/18 10/10/18 Rx Furosemide [Lasix] 20 mg PO BID 10/10/18 10/10/18 History Allergies Allergy/AdvReac Type Severity Reaction Status Date / Time cefepime Allergy Intermediate Rash/Hives Verified 10/10/18 11:08 Physical Exam Vitals: Vital Signs Temp Pulse Pulse Resp BP BP Pulse Ox 10/11/18 08:00 98.2 F 81 20 92/62 100 10/11/18 04:00 98.8 F 82 20 104/65 92 L 10/11/18 00:00 98.2 F 77 18 111/66 95 10/10/18 22:26 18 10/10/18 21:00 88 18 115/72 93 L 10/10/18 20:00 90 18 108/73 95 10/10/18 19:00 92 18 103/66 99 10/10/18 18:00 92 18 119/84 95 10/10/18 17:00 89 18 134/79 96 10/10/18 16:00 86 18 137/67 91 L 10/10/18 15:00 88 18 120/77 98 10/10/18 14:00 85 18 127/78 99 10/10/18 13:00 78 18 109/71 98 Intake and Output 10/10/18 10/11/18 10/11/18 22:59 06:59 14:59 Intake Total 240 Output Total 100 Balance -100 240 Intake: Oral 240 Output: Urine 100 Other: Voiding Method Urinal # Voids 1 1 # Bowel Movements 1 Weight 49 kg General appearance: The patient is alert, oriented, in no acute distress. Cachectic. Jaundice. HET: Head is normocephalic and atraumatic. Pupils are equal and reactive. Sclerae icterus. Oropharynx is clear without lesions. Neck: Supple without lymphadenopathy. Trachea midline. Heart: S1 S2. Regular rate and rhythm. Lungs: No crackles or wheezes are heard. Abdomen: Soft, tense mildly distended with ascites and diffuse anasarca with bowel sounds. No peritoneal signs. No palpable organomegaly or masses. Extremities: Plus for bilateral lower extremity edema. Neurological: No focal deficits. Strength and sensation are grossly intact. Results CBC & Chem 7: 10/11/18 09:45 10/10/18 11:57 Labs: Abnormal Lab Results - Last 24 Hours (Table) 10/10/18 10/10/18 10/10/18 Range/Units 11:57 11:57 11:57 RBC 3.32 L (4.30-5.90) m/uL Hgb 11.5 L D (13.0-17.5) gm/dL Hct 36.1 L (39.0-53.0) % MCV 108.8 H D (80.0-100.0) fL MCHC (31.0-37.0) g/dL Plt Count 143 L (150-450) k/uL Lymphocytes # 0.5 L (1.0-4.8) k/uL PT 15.1 H (9.0-12.0) sec INR 1.5 H (<1.2) APTT >200.0 H* (22.0-30.0) sec Chloride 110 H (98-107) mmol/L BUN 23 H (9-20) mg/dL Calcium 7.7 L (8.4-10.2) mg/dL Total Bilirubin 5.2 H (0.2-1.3) mg/dL Conjugated Bilirubin 2.3 H (0.0-0.3) mg/dL Delta Bilirubin 2.1 H (0.0-0.2) mg/dL AST 160 H (17-59) U/L ALT 96 H (21-72) U/L Alkaline Phosphatase 1108 H (38-126) U/L Total Protein 3.9 L (6.3-8.2) g/dL Albumin 1.5 L (3.5-5.0) g/dL Amylase <30 L (30-110) U/L Lipase <10 L (23-300) U/L Ur Specific [place] (1.001-1.035) Urine Protein (Negative) Urine Bilirubin (Negative) 10/10/18 10/11/18 10/11/18 Range/Units 13:05 09:45 09:45 RBC 3.84 L (4.30-5.90) m/uL Hgb 12.8 L (13.0-17.5) gm/dL Hct (39.0-53.0) % MCV 108.8 H (80.0-100.0) fL MCHC 30.7 L (31.0-37.0) g/dL Plt Count 114 L (150-450) k/uL Lymphocytes # 0.5 L (1.0-4.8) k/uL PT 14.6 H (9.0-12.0) sec INR 1.4 H (<1.2) APTT 31.2 H (22.0-30.0) sec Chloride (98-107) mmol/L BUN (9-20) mg/dL Calcium (8.4-10.2) mg/dL Total Bilirubin (0.2-1.3) mg/dL Conjugated Bilirubin (0.0-0.3) mg/dL Delta Bilirubin (0.0-0.2) mg/dL AST (17-59) U/L ALT (21-72) U/L Alkaline Phosphatase (38-126) U/L Total Protein (6.3-8.2) g/dL Albumin (3.5-5.0) g/dL Amylase (30-110) U/L Lipase (23-300) U/L Ur Specific [place] 1.041 H (1.001-1.035) Urine Protein Trace H (Negative) Urine Bilirubin 2+ H (Negative) CT scan - abdomen: report reviewed (Dr. Ramirez) US - abdomen: report reviewed (Dr. Ramirez) Assessment and Plan (1) Obstructive jaundice Narrative/Plan: 78-year-old gentleman with a history of pancreatic carcinoma admitted with obstructive jaundice most likely secondary to progression of malignancy. Current Visit: Yes Status: Acute Code(s): K83.8 - OTHER SPECIFIED DISEASES OF BILIARY TRACT SNOMED Code(s): 18356685 (2) Pancreatic cancer Current Visit: Yes Status: Acute Code(s): C25.9 - MALIGNANT NEOPLASM OF PANCREAS, UNSPECIFIED SNOMED Code(s): 598887709 Plan: 1. ERCP biliary stent discussed at this time patient is holding off until he can speak with his oncologist. Patient is hesitant about proceeding with endoscopic procedures as he has a history of small bowel injury one year ago secondary to an endoscopic procedure at an outside facility. Continue with symptomatic supportive measures. Daily monitoring of chemistries and liver function tests. Will follow closely with you. Thank you for this kind referral and the opportunity to participate in the care of your patient. This consultation was discussed with Dr. Ramirez. The impression and plan of care have been directed as dictated.
[2018-10-11] MEDS ORDERED: LORazepam 0.5 MG TAB PO PRN (12:40)
[2018-10-11 13:52] VITALS: BMI 15.0
--- NOTE | 2018-10-11 15:46 | P.CONS ---
History of Present Illness - Reason for Consult Consult date: 10/11/18 Pancreatic Cancer metastatic Requesting physician: Dwayne Weiss - Chief Complaint ABdominal Pain - History of Present Illness Ed presented to [facility] ER on July 30with mid/lower abdominal pain > CT scan revealed 2.1X2.5X2.5 cm mass in head of pancreas > he was transfered to [facility], Films reviewed there > mass lesion thought to be larger (3.3X2.7 cm). Baseline CA19-9 was 581. She had EUS by Dr Valdez on > biopsy revealed Adenocarcinoma. Unfortunately he had ruptured duodenum and had Laparotomy with repair of perforation on 08/02/17. He smoked 1 PPD X 30 years, quit 20 years ago, denied ETOH. C/O moderate watery clear diarrhea X 1 week. No known family history of malignancy. 10/14/17: Started on Kumar-adjuvant Chemotherapy ([place]+Abraxane) > Tolerated poorly with severe weakness, since this time he has received different lines of therapy, all requiring full supportive care, trewatment reductions, and treatment holidays. His most recent treatment with Onivyde and 5FU was on 08/31/18. His symptoms were persistent and his toleration to treatment was poor, requiring treatment holiday to hopefully increase overall performance. Over the past few weeks his weakness has persisted. He complains of increased abdominal pain and distention. He was last seen in office 10/05 and [address]aging CTs were ordered for 10/09/18, he has diffuse ascites, anasarca and bilateral pleural effussions noted on CT. Patient advised to be further evaluated in Emergency for Jaundice, failure to thrive, Increased abdominal ascites and pain likely related to progressive disease Review of Systems A 14 point review of systems assessed and completed and all negative except HPI. Past Medical History Past Medical History: Coronary Artery Disease (CAD), Cancer, GERD/Reflux, Hyperlipidemia, Hypertension, Osteoarthritis (OA) Additional Past Medical History / Comment(s): Pancreatic CA-per family-pt had chemo 5 weeks ago. skin cancer with removal, nephrolithiasis with surgery, sinus problems at times, ulcerative colitis in the 1970s, back pain/sciatica, past numbness/tingling L arm-pt stated was d/t chemo, uti, History of Any Multi-Drug Resistant Organisms: None Reported Past Surgical History: Cholecystectomy, Heart Catheterization With Stent, Tonsillectomy Additional Past Surgical History / Comment(s): .PCI/stent x5, pilonidial cyst removed, hemohroidectomy, EGD/colonoscopy. during bx for pancreatic cancer his small intestine was nicked- followed by open laparotomy done at [facility], cystoscopy/kidney stone removal, skin cancer removed from R side of neck, bilateral cataract removals, port placement rt upper chest Past Anesthesia/Blood Transfusion Reactions: No Reported Reaction Date of Last Stent Placement:: 2012 Smoking Status: Former smoker - Past Family History Father Additional Family Medical History / Comment(s): Father at age 84 from old age with no major medical problems. Mother Additional Family Medical History / Comment(s): Mother from leukemia. Brother(s) Additional Family Medical History / Comment(s): She has a brother that from stomach cancer. Patient has 3 sisters with no major medical problems. Patient has 3 children with no major medical problems. Medications and Allergies Home Medications Medication Instructions Recorded Confirmed Type Isosorbide Mononitrate ER [Imdur] 30 mg PO DAILY 02/24/14 10/10/18 History Atenolol 25 mg PO DAILY 03/08/14 10/10/18 History Nitroglycerin Sl Tabs [Nitrostat] 0.4 mg SL Q5M PRN 03/08/14 10/10/18 History Multivitamins, Thera [Multivitamin 1 tab PO DAILY 02/09/18 10/10/18 History (formulary)] Atorvastatin [Lipitor] 40 mg PO DAILY 05/01/18 10/10/18 History Pantoprazole Sodium [Protonix] 40 mg PO DAILY 05/01/18 10/10/18 History Aspirin [Adult Low Dose Aspirin EC] 81 mg PO DAILY 08/13/18 10/10/18 History Magnesium Oxide [Mag-Ox] 250 mg PO DAILY 08/13/18 10/10/18 History Cholestyramine (with Sugar) 4 gm PO DAILY 30 Days #30 packet 08/16/18 10/10/18 Rx [Questran] Diphenox-Atrop 2.5-0.025 mg 2 each PO Q6HR PRN #120 tab 08/16/18 10/10/18 Rx [Lomotil] Potassium Chloride [Klor-Con 10] 20 meq PO BID #120 tablet.er 08/16/18 10/10/18 Rx Furosemide [Lasix] 20 mg PO BID 10/10/18 10/10/18 History Atropine Ophth Soln 1% 5Ml [Isopto 2 drops PO Q4HR PRN #1 bottle 10/11/18 Rx Atropine 1% 5Ml] LORazepam ORAL CONC [Ativan 2 mg PO Q4HR PRN #30 ml 10/11/18 Rx Intensol] MORPHINE ORAL PAULINO CONC 20mg/mL 5 mg PO Q4H PRN #30 ml 10/11/18 Rx [Roxanol Oral Soln Conc 20MG/ML] Allergies Allergy/AdvReac Type Severity Reaction Status Date / Time cefepime Allergy Intermediate Rash/Hives Verified 10/10/18 11:08 Physical Exam Vitals: Vital Signs Temp Pulse Pulse Resp BP BP Pulse Ox 10/11/18 15:12 82 20 10/11/18 12:00 82 20 100/60 100 10/11/18 08:00 81 20 92/62 100 10/11/18 04:00 98.8 F 82 20 104/65 92 L 10/11/18 00:00 98.2 F 77 18 111/66 95 10/10/18 22:26 18 10/10/18 21:00 88 18 115/72 93 L 10/10/18 20:00 90 18 108/73 95 10/10/18 19:00 92 18 103/66 99 10/10/18 18:00 92 18 119/84 95 10/10/18 17:00 89 18 134/79 96 10/10/18 16:00 86 18 137/67 91 L Intake and Output 10/11/18 10/11/18 10/11/18 06:59 14:59 22:59 Intake Total 740 Output Total 100 200 Balance -100 540 Intake: Oral 740 Output: Urine 100 200 Other: Voiding Method Urinal Urinal # Voids 1 1 # Bowel Movements 1 Weight 49 kg 49 kg - Constitutional Chronic ill appearance General appearance: cooperative, mild distress, thin - EENT Eyes: dentition normal ENT: NA/AT, normal oropharynx - Neck Neck: normal ROM - Respiratory Respiratory: bilateral: diminished (throughout bilateral bases) - Cardiovascular Rhythm: irregularly irregular leg Peripheral Edema: bilateral: 3+ - Gastrointestinal Ascites and tenderness General gastrointestinal: distended - Integumentary Integumentary: pale - Neurologic Neurologic: CNII-XII intact - Musculoskeletal Musculoskeletal: generalized weakness, strength equal bilaterally - Psychiatric Psychiatric: A&O x's 3, appropriate affect, intact judgment & insight Results CBC & Chem 7: 10/11/18 09:45 10/10/18 11:57 Labs: Abnormal Lab Results - Last 24 Hours (Table) 10/11/18 10/11/18 Range/Units 09:45 09:45 RBC 3.84 L (4.30-5.90) m/uL Hgb 12.8 L (13.0-17.5) gm/dL MCV 108.8 H (80.0-100.0) fL MCHC 30.7 L (31.0-37.0) g/dL Plt Count 114 L (150-450) k/uL Lymphocytes # 0.5 L (1.0-4.8) k/uL PT 14.6 H (9.0-12.0) sec INR 1.4 H (<1.2) APTT 31.2 H (22.0-30.0) sec CT scan - abdomen: report reviewed CT scan - pelvis: report reviewed Assessment and Plan Plan: Assessment and Recommendations: 1. Metastatic Pancreatic Cancer - - Last Chemotherapy 08/31/18 - Unable to tolerate treatment - Curently on treatment holiday - CT scan suggestive of progression 2. Diffuse Third Spacing in tissues - Bilateral Effusions - Abdominal Ascites - BLE Edema - Echocardiogram completed. - Diuresis over the past few weeks and increased protein without improvement, although worsening. 3. Severe Protein Calorie Malnutrition: - Albumin 1.5, this is consistent with very poor outcomes - Recurrent education regarding importance of adequate protein intake throughout diagnosis, progressively worsening 4. Hyperbilirubinemia - Likely related to progressive disease I havd a long discussion with the patient and son. Overall prognosis is poor. I have discussed case in detail with primary oncologist Dr. Kunz, he states no further treatments are recommended and palliative hospice care for goals of comfort are appropriate. We discussed setting patient up for home Palliative or Home Hospice. He states he will discuss further with his family. We will re- evaluate again in am. - If paracentesis may relieve pressure and provide comfort this is resonable. Greater than 30 minutes spent with patient and son.
--- NOTE | 2018-10-11 16:07 | P.HPIM ---
History of Present Illness H&P Date: 10/11/18 Chief Complaint: Weakness and abdominal pain This is 78 years old male with past medical history significant for metastatic pancreatic cancer presents to the hospital with progressive weakness Patient stated that he has been receiving his most recent round of chemotherapy 6 weeks ago and was admitted to our facility secondary to worsening abdominal pain diarrhea he was subsequently discharged to home after using Sandostatin and remote by mouth/Imodium . Patient comes into the emergency room secondary to progressive worsening generalized weakness increasing abdominal distention fluid retention in the legs and arms increasing dyspnea.Unable to continue on his own he divide and 5-FU treatment and currently is on a treatment holiday. Secondary to deconditioning and poor performance Patient underwent CAT scan of the abdomen and pelvis yesterday showing moderate diffuse ascites and left-sided intrahepatic biliary duct palpation up to the level of the duodenal ampulla were just abrupt narrowing, persistent pancreatic duct agitation, occlusion of the SMV, 9 mm hepatic lesions suspicious for metastasis, labs shows total bilirubin 5.2 AST 160 alkaline phos 10/24/07 ALT 96 patient has prior history of endoscopic ultrasound on July 2017 with a biopsy revealing adenocarcinoma, CA 199 was 581 at that time, and during this procedure, the patient had ruptured duodenal required laparotomy with repair of perforation August 02, 2017. Review of Systems Constitutional: Reports as per HPI, Reports anorexia, Reports malaise, Reports poor appetite, Reports weight loss, Denies chills, Denies chronic headaches, Denies chronic pain, Denies daytime sleepiness, Denies fatigue, Denies fever, Denies lethargy, Denies night sweats, Denies sweats, Denies weakness, Denies weight gain Ears, nose, mouth and throat: Denies as per HPI, Denies ant. neck pain, Denies bleeding gums, Denies dental pain, Denies dysphagia, Denies epistaxis, Denies headache, Denies hoarseness, Denies mouth pain, Denies nasal congestion, Denies nasal discharge, Denies neck fullness/pressure, Denies neck lump, Denies nose pain, Denies odynophagia, Denies post-nasal drip, Denies sinus pain, Denies sinus pressure, Denies swelling in mouth, Denies swelling in throat, Denies sore throat, Denies vertigo, Denies voice changes Cardiovascular: Reports as per HPI Respiratory: Reports as per HPI, Denies congestion, Denies cough, Denies cough with sputum, Denies dyspnea, Denies excessive sputum, Denies hemoptysis, Denies home oxygen, Denies pain, Denies pain on inspiration, Denies pleurisy, Denies respiratory infections, Denies sleep apnea, Denies snoring, Denies wheezing Gastrointestinal: Reports as per HPI, Reports abdominal pain, Reports bloating, Reports early satiety, Denies belching, Denies BRBPR, Denies change in bowel habits, Denies coffee ground emesis, Denies constipation, Denies diarrhea, Denies dyspepsia, Denies excessive gas, Denies heartburn, Denies hematemesis, Denies hematochezia, Denies indigestion, Denies jaundice, Denies lactose intolerance, Denies loss of appetite, Denies melena, Denies nausea, Denies vomiting Genitourinary: Reports as per HPI, Denies decreased libido, Denies difficulties fathering child, Denies discharge, Denies dysuria, Denies erectile dysfunction, Denies flank pain, Denies genital pain, Denies genital sores, Denies hematuria, Denies impotence, Denies incontinence, Denies kidney stones, Denies nocturia, Denies polyuria, Denies testicular lump, Denies testicular pain, Denies urinary frequency, Denies urinary hesitancy, Denies urinary retention Musculoskeletal: Reports as per HPI, Denies arm numbness/tingling, Denies atrophy, Denies fractures, Denies frequent falls, Denies gait dysfunction, Denies hot joints, Denies leg numbness/tingling, Denies limitation of motion, Denies loss of height, Denies low back pain, Denies morning stiffness, Denies muscle cramps, Denies muscle weakness, Denies myalgias, Denies neck pain, Denies neck stiffness, Denies prior amputations, Denies redness of joints, Denies shooting arm pain, Denies shooting leg pain Integumentary: Reports as per HPI, Denies acne, Denies boils, Denies brittle nails, Denies change in hair/nails, Denies color changes, Denies darkening of skin, Denies depigmentation, Denies dryness, Denies foot/leg ulcers, Denies growths, Denies hirsutism, Denies lesions, Denies onychomycosis, Denies pruritus , Denies rash, Denies sores, Denies striae, Denies unusual bruising, Denies wounds Neurological: Reports as per HPI, Reports gait dysfunction, Reports motor disturbance, Reports weakness, Denies aphasia, Denies ataxia, Denies balance difficulties, Denies burning pain, Denies change in mentation, Denies change in smell/taste, Denies change in speech, Denies confusion, Denies convulsions, Denies double vision, Denies head injury, Denies headaches, Denies hearing difficulties, Denies lack of coordination, Denies loss of vision, Denies memory loss, Denies migraines, Denies numbness, Denies paralysis, Denies paresthesias, Denies seizures, Denies sensory deficit, Denies spasticity, Denies syncope, Denies tic, Denies tingling, Denies transient paralysis, Denies tremors, Denies vertigo, Denies visual changes Psychiatric: Reports as per HPI Endocrine: Reports as per HPI Hematologic/Lymphatic: Reports as per HPI Allergic/Immunologic: Reports as per HPI Past Medical History Past Medical History: Coronary Artery Disease (CAD), Cancer, GERD/Reflux, Hyperlipidemia, Hypertension, Osteoarthritis (OA) Additional Past Medical History / Comment(s): Pancreatic CA-per family-pt had chemo 5 weeks ago. skin cancer with removal, nephrolithiasis with surgery, sinus problems at times, ulcerative colitis in the 1970s, back pain/sciatica, past numbness/tingling L arm-pt stated was d/t chemo, uti, History of Any Multi-Drug Resistant Organisms: None Reported Past Surgical History: Cholecystectomy, Heart Catheterization With Stent, Tonsillectomy Additional Past Surgical History / Comment(s): .PCI/stent x5, pilonidial cyst removed, hemohroidectomy, EGD/colonoscopy. during bx for pancreatic cancer his small intestine was nicked- followed by open laparotomy done at [facility], cystoscopy/kidney stone removal, skin cancer removed from R side of neck, bilateral cataract removals, port placement rt upper chest Past Anesthesia/Blood Transfusion Reactions: No Reported Reaction Date of Last Stent Placement:: 2012 Smoking Status: Former smoker - Past Family History Father Additional Family Medical History / Comment(s): Father at age 84 from old age with no major medical problems. Mother Additional Family Medical History / Comment(s): Mother from leukemia. Brother(s) Additional Family Medical History / Comment(s): She has a brother that from stomach cancer. Patient has 3 sisters with no major medical problems. Patient has 3 children with no major medical problems. Medications and Allergies Home Medications Medication Instructions Recorded Confirmed Type Isosorbide Mononitrate ER [Imdur] 30 mg PO DAILY 02/24/14 10/10/18 History Atenolol 25 mg PO DAILY 03/08/14 10/10/18 History Nitroglycerin Sl Tabs [Nitrostat] 0.4 mg SL Q5M PRN 03/08/14 10/10/18 History Multivitamins, Thera [Multivitamin 1 tab PO DAILY 02/09/18 10/10/18 History (formulary)] Atorvastatin [Lipitor] 40 mg PO DAILY 05/01/18 10/10/18 History Pantoprazole Sodium [Protonix] 40 mg PO DAILY 05/01/18 10/10/18 History Aspirin [Adult Low Dose Aspirin EC] 81 mg PO DAILY 08/13/18 10/10/18 History Magnesium Oxide [Mag-Ox] 250 mg PO DAILY 08/13/18 10/10/18 History Cholestyramine (with Sugar) 4 gm PO DAILY 30 Days #30 packet 08/16/18 10/10/18 Rx [Questran] Diphenox-Atrop 2.5-0.025 mg 2 each PO Q6HR PRN #120 tab 08/16/18 10/10/18 Rx [Lomotil] Potassium Chloride [Klor-Con 10] 20 meq PO BID #120 tablet.er 08/16/18 10/10/18 Rx Furosemide [Lasix] 20 mg PO BID 10/10/18 10/10/18 History Atropine Ophth Soln 1% 5Ml [Isopto 2 drops PO Q4HR PRN #1 bottle 10/11/18 Rx Atropine 1% 5Ml] LORazepam ORAL CONC [Ativan 2 mg PO Q4HR PRN #30 ml 10/11/18 Rx Intensol] MORPHINE ORAL PAULINO CONC 20mg/mL 5 mg PO Q4H PRN #30 ml 10/11/18 Rx [Roxanol Oral Soln Conc 20MG/ML] Allergies Allergy/AdvReac Type Severity Reaction Status Date / Time cefepime Allergy Intermediate Rash/Hives Verified 10/10/18 11:08 Physical Exam Vitals: Vital Signs Temp Pulse Pulse Resp BP BP Pulse Ox 10/11/18 12:00 79 20 10/11/18 08:00 98.2 F 81 20 92/62 100 10/11/18 04:00 98.8 F 82 20 104/65 92 L 10/11/18 00:00 98.2 F 77 18 111/66 95 10/10/18 22:26 18 10/10/18 21:00 88 18 115/72 93 L 10/10/18 20:00 90 18 108/73 95 10/10/18 19:00 92 18 103/66 99 10/10/18 18:00 92 18 119/84 95 10/10/18 17:00 89 18 134/79 96 10/10/18 16:00 86 18 137/67 91 L 10/10/18 15:00 88 18 120/77 98 Intake and Output 10/10/18 10/11/18 10/11/18 22:59 06:59 14:59 Intake Total 740 Output Total 100 Balance -100 740 Intake: Oral 740 Output: Urine 100 Other: Voiding Method Urinal # Voids 1 1 # Bowel Movements 1 Weight 49 kg 49 kg - Constitutional General appearance: cooperative, no acute distress, thin - EENT Eyes: anicteric sclerae ENT: NA/AT, normal oropharynx - Neck Neck: normal ROM - Respiratory Respiratory: bilateral: CTA, diminished, dullness, negative: rhonchi, wheezing, prolonged expiration - Cardiovascular Rhythm: regular Heart sounds: normal: S1, S2 Abnormal Heart Sounds: no systolic murmur, no diastolic murmur, no rub, no S3 Gallop, no S4 Gallop, no click, no other - Gastrointestinal General gastrointestinal: distended, soft - Integumentary Integumentary: normal, normal turgor - Neurologic Neurologic: CNII-XII intact - Musculoskeletal Musculoskeletal: generalized weakness, strength equal bilaterally - Psychiatric Psychiatric: A&O x's 3, appropriate affect, intact judgment & insight Results CBC & Chem 7: 10/11/18 09:45 10/10/18 11:57 Labs: Abnormal Lab Results - Last 24 Hours (Table) 10/11/18 10/11/18 Range/Units 09:45 09:45 RBC 3.84 L (4.30-5.90) m/uL Hgb 12.8 L (13.0-17.5) gm/dL MCV 108.8 H (80.0-100.0) fL MCHC 30.7 L (31.0-37.0) g/dL Plt Count 114 L (150-450) k/uL Lymphocytes # 0.5 L (1.0-4.8) k/uL PT 14.6 H (9.0-12.0) sec INR 1.4 H (<1.2) APTT 31.2 H (22.0-30.0) sec Laboratory Results WBC 7.4 k/uL (3.8-10.6) 10/11/18 09:45 RBC 3.84 m/uL (4.30-5.90) L 10/11/18 09:45 Hgb 12.8 gm/dL (13.0-17.5) L 10/11/18 09:45 Hct 41.8 % (39.0-53.0) 10/11/18 09:45 MCV 108.8 fL (80.0-100.0) H 10/11/18 09:45 MCH 33.5 pg (25.0-35.0) 10/11/18 09:45 MCHC 30.7 g/dL (31.0-37.0) L 10/11/18 09:45 RDW 15.3 % (11.5-15.5) 10/11/18 09:45 Plt Count 114 k/uL (150-450) L 10/11/18 09:45 Neutrophils % 86 % 10/11/18 09:45 Lymphocytes % 7 % 10/11/18 09:45 Monocytes % 4 % 10/11/18 09:45 Eosinophils % 1 % 10/11/18 09:45 Basophils % 0 % 10/11/18 09:45 Neutrophils # 6.3 k/uL (1.3-7.7) 10/11/18 09:45 Lymphocytes # 0.5 k/uL (1.0-4.8) L 10/11/18 09:45 Monocytes # 0.3 k/uL (0-1.0) 10/11/18 09:45 Eosinophils # 0.1 k/uL (0-0.7) 10/11/18 09:45 Basophils # 0.0 k/uL (0-0.2) 10/11/18 09:45 Manual Slide Review Performed 10/11/18 09:45 Poikilocytosis (manual Present 10/11/18 09:45 Macrocytosis Marked 10/11/18 09:45 PT 14.6 sec (9.0-12.0) H 10/11/18 09:45 INR 1.4 (<1.2) H 10/11/18 09:45 APTT 31.2 sec (22.0-30.0) H 10/11/18 09:45 Sodium 138 mmol/L (137-145) 10/10/18 11:57 Potassium 3.8 mmol/L (3.5-5.1) 10/10/18 11:57 Chloride 110 mmol/L (98-107) H 10/10/18 11:57 Carbon Dioxide 25 mmol/L (22-30) 10/10/18 11:57 Anion Gap 3 mmol/L 10/10/18 11:57 BUN 23 mg/dL (9-20) H 10/10/18 11:57 Creatinine 1.05 mg/dL (0.66-1.25) 10/10/18 11:57 Est GFR (CKD-EPI)AfAm 78 (>60 ml/min/1.73 sqM) 10/10/18 11:57 Est GFR (CKD-EPI)NonAf 67 (>60 ml/min/1.73 sqM) 10/10/18 11:57 Glucose 86 mg/dL (74-99) 10/10/18 11:57 Plasma Lactic Acid Moisés 1.1 mmol/L (0.7-2.0) 10/10/18 11:57 Calcium 7.7 mg/dL (8.4-10.2) L 10/10/18 11:57 Total Bilirubin 5.2 mg/dL (0.2-1.3) H 10/10/18 11:57 Conjugated Bilirubin 2.3 mg/dL (0.0-0.3) H 10/10/18 11:57 Unconjugated Bilirubin 0.8 mg/dL (0.0-1.1) 10/10/18 11:57 Delta Bilirubin 2.1 mg/dL (0.0-0.2) H 10/10/18 11:57 AST 160 U/L (17-59) H 10/10/18 11:57 ALT 96 U/L (21-72) H 10/10/18 11:57 Alkaline Phosphatase 1108 U/L (38-126) H 10/10/18 11:57 Total Protein 3.9 g/dL (6.3-8.2) L 10/10/18 11:57 Albumin 1.5 g/dL (3.5-5.0) L 10/10/18 11:57 Amylase <30 U/L (30-110) L 10/10/18 11:57 Lipase <10 U/L (23-300) L 10/10/18 11:57 Urine Color Dark Brown 10/10/18 13:05 Urine Appearance Clear (Clear) 10/10/18 13:05 Urine pH 5.5 (5.0-8.0) 10/10/18 13:05 Ur Specific [place] 1.041 (1.001-1.035) H 10/10/18 13:05 Urine Protein Trace (Negative) H 10/10/18 13:05 Urine Glucose (UA) Negative (Negative) 10/10/18 13:05 Urine Ketones Negative (Negative) 10/10/18 13:05 Urine Blood Negative (Negative) 10/10/18 13:05 Urine Nitrite Negative (Negative) 10/10/18 13:05 Urine Bilirubin 2+ (Negative) H 10/10/18 13:05 Urine Urobilinogen 2.0 mg/dL (<2.0) 10/10/18 13:05 Ur Leukocyte Esterase Negative (Negative) 10/10/18 13:05 Thrombosis Risk Factor Assmnt - Choose All That Apply Each Factor Represents 1 point: Swollen legs (current) Other Risk Factors: No Each Risk Factor Represents 3 Points: Age 75 years or older Other congenital or acquired thrombophilia - If yes, enter type in comment: No Thrombosis Risk Factor Assessment Total Risk Factor Score: 4 Thrombosis Risk Factor Assessment Level: Moderate Risk Assessment and Plan Plan: 1. Pancreatic cancer with metastases to stasis now to the liver, SMV, has significant ascites and anasarca and pleural effusion, poor tolerance to recently started neoadjuvant chemotherapy increasing jaundice, and obstructive processes in the abdomen arising from the pancreatic cancer, patient has been seen by oncology for which based on the CAT scan findings showing progression, they have recommended comfort care measures and enrollment to hospice care family is aware off these discussion, and have decided on going to home hospice program, 2 generalized anasarca with ascites malignant pleural effusion along with severe protein calorie malnutrition arising from malignancy prognosis is poor no diuretics at this time, we would provide diet as tolerated 3. Severe protein calorie malnutrition 4. Hypertension, life-sustaining medications are discontinued including blood pressure maintenance medications 5. Hyperlipidemia. Stop Lipitor 5. History of coronary artery disease status post PCI. Hospice medications for comfort care maintenance medications for heart disease are discontinued Prognosis poor CODE STATUS comfort care Discharge to home hospice in the next 24 hours
[2018-10-11] MEDS: HYDROmorphone 1 MG/ML 1 ML SYRINGE IVP PRN ×2 (16:36→21:16)
[2018-10-12] MEDS: HYDROmorphone 1 MG/ML 1 ML SYRINGE IVP PRN (13:00)
--- NOTE | 2018-10-12 14:39 | P.DS ---
Providers Date of admission: 10/10/18 14:53 Expected date of discharge: 10/12/18 Attending physician: Mireya Schaffer Consults: 10/10/18 14:04 Consult Physician Routine Consulting Provider: Ramón Kunz Consult Reason/Comments: Pancreatic cancer, patient known to physician Do you want consulting provider notified?: Already Contacted Primary care physician: [facility] Course: This is 78 years old male with past medical history significant for metastatic pancreatic cancer presents to the hospital with progressive weakness Patient stated that he has been receiving his most recent round of chemotherapy 6 weeks ago and was admitted to our facility secondary to worsening abdominal pain diarrhea he was subsequently discharged to home after using Sandostatin and remote by mouth/Imodium . Patient comes into the emergency room secondary to progressive worsening generalized weakness increasing abdominal distention fluid retention in the legs and arms increasing dyspnea.Unable to continue on his own he divide and 5-FU treatment and currently is on a treatment holiday. Secondary to deconditioning and poor performance Patient underwent CAT scan of the abdomen and pelvis yesterday showing moderate diffuse ascites and left-sided intrahepatic biliary duct palpation up to the level of the duodenal ampulla were just abrupt narrowing, persistent pancreatic duct agitation, occlusion of the SMV, 9 mm hepatic lesions suspicious for metastasis, labs shows total bilirubin 5.2 AST 160 alkaline phos 10/24/07 ALT 96 patient has prior history of endoscopic ultrasound on July 2017 with a biopsy revealing adenocarcinoma, CA 199 was 581 at that time, and during this procedure, the patient had ruptured duodenal required laparotomy with repair of perforation August 02, 2017. 10/12: Patient has been seen by clear and hospice and will be discharged home with home hospice today. Prescriptions have been provided and maps completed showed a score of 120. Opioid start talking form was completed and signed by the patient. All questions were answered. We are scheduling a paracentesis with drain placement for this afternoon with interventional radiology and the patient will be discharged home. Hospice is arranging all equipment. All questions and answered of patient and family. Patient will be discharged home today in stable condition. Discharge diagnoses: 1. Pancreatic cancer with metastases, stage 4 2. Generalized anasarca with ascites malignant pleural effusion along with severe protein calorie malnutrition arising from malignancy 3. Severe protein calorie malnutrition 4. Hypertension 5. Hyperlipidemia. 6. History of coronary artery disease status post PCI. Discharge to home with [facility] Impression and plan of care have been directed as dictated by the signing physician. Klaudia Kimball nurse practitioner acting as scribe for signing physician. Patient Condition at Discharge: Good Plan - Discharge Summary Discharge Rx Participant: No New Discharge Prescriptions: New Atropine Ophth Soln 1% 5Ml [Isopto Atropine 1% 5Ml] 2 drops PO Q4HR PRN #1 bottle PRN Reason: Secretions LORazepam ORAL CONC [Ativan Intensol] 2 mg PO Q4HR PRN #30 ml PRN Reason: Anxiety MORPHINE ORAL PAULINO CONC 20mg/mL [Roxanol Oral Soln Conc 20MG/ML] 5 mg PO Q4H PRN #30 ml PRN Reason: Pain Discontinued Isosorbide Mononitrate ER [Imdur] 30 mg PO DAILY Atenolol 25 mg PO DAILY Nitroglycerin Sl Tabs [Nitrostat] 0.4 mg SL Q5M PRN PRN Reason: Chest Pain Multivitamins, Thera [Multivitamin (formulary)] 1 tab PO DAILY Atorvastatin [Lipitor] 40 mg PO DAILY Pantoprazole Sodium [Protonix] 40 mg PO DAILY Magnesium Oxide [Mag-Ox] 250 mg PO DAILY Aspirin [Adult Low Dose Aspirin EC] 81 mg PO DAILY Cholestyramine (with Sugar) [Questran] 4 gm PO DAILY 30 Days #30 packet Diphenox-Atrop 2.5-0.025 mg [Lomotil] 2 each PO Q6HR PRN #120 tab PRN Reason: Diarrhea Potassium Chloride [Klor-Con 10] 20 meq PO BID #120 tablet.er Furosemide [Lasix] 20 mg PO BID Discharge Medication List Atropine Ophth Soln 1% 5Ml [Isopto Atropine 1% 5Ml] 2 drops PO Q4HR PRN #1 bottle 10/11/18 [Rx] LORazepam ORAL CONC [Ativan Intensol] 2 mg PO Q4HR PRN #30 ml 10/11/18 [Rx] MORPHINE ORAL PAULINO CONC 20mg/mL [Roxanol Oral Soln Conc 20MG/ML] 5 mg PO Q4H PRN #30 ml 10/11/18 [Rx] Follow up Appointment(s)/Referral(s): Leodan Tadeo MD [Primary Care Provider] - As Needed Patient Instructions/Handouts: Hospice (DC) Activity/Diet/Wound Care/Special Instructions: home with [facility] Discharge Disposition: HOME WITH HOSPICE
[2018-10-12 15:38] VITALS: RESP 16; TEMP 97.8
[2018-10-12 16:32] VITALS: BP 110/57; PULSE 71
--- NOTE | 2018-10-12 18:06 | P.PN ---
Subjective Progress Note Date: 10/12/18 Principal diagnosis: Progressive metastatic cancer patient resting compfortably this am, plan is to go home hospice after therapeutic Paracentesis. No family at bedside during assessment this am Objective - Vital Signs Vital signs: Vital Signs Temp 97.8 F 10/12/18 15:37 Pulse 71 10/12/18 16:31 Resp 16 10/12/18 16:31 BP 110/57 10/12/18 16:31 Pulse Ox 95 10/12/18 16:31 Intake & Output 10/11/18 10/12/18 10/12/18 18:59 06:59 18:59 Intake Total 740 200 Output Total 350 Balance 390 200 Weight 49 kg Intake: Oral 740 200 Output: Urine 350 Other: Voiding Method Urinal Urinal Urinal # Voids 1 1 2 # Bowel Movements 0 - Exam Chronic ill appearance General appearance: cooperative, mild distress, thin - EENT Eyes: dentition normal ENT: NA/AT, normal oropharynx - Neck Neck: normal ROM - Respiratory Respiratory: bilateral: diminished (throughout bilateral bases) - Cardiovascular Rhythm: irregularly irregular leg Peripheral Edema: bilateral: 3+ - Gastrointestinal Ascites and tenderness General gastrointestinal: distended - Integumentary Integumentary: pale - Neurologic Neurologic: CNII-XII intact - Musculoskeletal Musculoskeletal: generalized weakness, strength equal bilaterally - Psychiatric Psychiatric: A&O x's 3, appropriate affect, intact judgment & insight - Labs CBC & Chem 7: 10/11/18 09:45 10/10/18 11:57 Assessment and Plan Plan: Assessment and Recommendations: 1. Metastatic Pancreatic Cancer - - Last Chemotherapy 08/31/18 - Unable to tolerate treatment - Curently on treatment holiday - CT scan suggestive of progression 2. Diffuse Third Spacing in tissues - Bilateral Effusions - Abdominal Ascites - BLE Edema - Echocardiogram completed. - Diuresis over the past few weeks and increased protein without improvement, although worsening. 3. Severe Protein Calorie Malnutrition: - Albumin 1.5, this is consistent with very poor outcomes - Recurrent education regarding importance of adequate protein intake throughout diagnosis, progressively worsening 4. Hyperbilirubinemia - Likely related to progressive disease PLAN: Home with Hospice care after therapeutic paracentesis
--- NOTE | 2018-10-13 11:32 | US ---
Therapeutic paracentesis. DATE OF EXAM: 10/12/2018 CLINICAL HISTORY: Ascites The procedure was discussed with the patient. The risks, complications, benefits, and alternatives we re discussed and any questions were answered. Informed consent was obtained. The patient was placed s upine on the ultrasound table and prepped and draped in the usual sterile fashion. All elements of maximal barrier technique were utilized. Under ultrasound guidance, access into the right lower quadrant was obtained, via the paracentesis catheter system and direct ultrasound guidanc e. Approximately 6.2 liters of straw-colored fluid was removed. The patient was stable throughout the pr ocedure and remained stable upon discharge from Department of Radiology. IMPRESSION: Successful therapeutic paracentesis under ultrasound guidance.
== END 2018-10-12 19:00 | disposition hospice, home (50) | DRG 435 ==
LOC: EC 10:54 → 3NMEDONC 14:53 → 3SCARD 15:27 → 3NMEDONC 10-11 17:10
PROVIDERS: ADMIT Family Medicine; ATTEND Family Medicine
PROC: 0W9G3ZZ Drainage of Peritoneal Cavity, Percutaneous Approach (ICD-10-PCS; principal; 2018-10-10)
DX: C25.9 Malignant neoplasm of pancreas, unspecified (principal); E43 Unspecified severe protein-calorie malnutrition; J91.0 Malignant pleural effusion; R18.8 Other ascites; C79.9 Secondary malignant neoplasm of unspecified site; Z68.1 Body mass index [BMI] 19.9 or less, adult; D64.9 Anemia, unspecified; E78.5 Hyperlipidemia, unspecified; I10 Essential (primary) hypertension; I25.10 Atherosclerotic heart disease of native coronary artery without angina pectoris; K21.9 Gastro-esophageal reflux disease without esophagitis; K72.90 Hepatic failure, unspecified without coma; R62.7 Adult failure to thrive; Z51.5 Encounter for palliative care; Z79.82 Long term (current) use of aspirin; Z79.899 Other long term (current) drug therapy; Z80.0 Family history of malignant neoplasm of digestive organs; Z80.6 Family history of leukemia; Z85.07 Personal history of malignant neoplasm of pancreas; Z85.828 Personal history of other malignant neoplasm of skin; Z87.442 Personal history of urinary calculi; Z87.891 Personal history of nicotine dependence; Z92.21 Personal history of antineoplastic chemotherapy; Z98.61 Coronary angioplasty status; Z88.8 Allergy status to other drugs, medicaments and biological substances; Z90.49 Acquired absence of other specified parts of digestive tract
CPT/HCPCS: 36415; 49083; 71046; 76700; 80053; 81003; 82150; 82248; 83605; 83690; 85025; 85610; 85730; 93005; 93308; 94760; 96374; 96375; 99285